=== PATIENT | female | born 1960 | race Caucasian/White ===

== ENCOUNTER → 2016-03-29 | Outpatient (CLI) | payer OTHER ==
[~2016-03-29] MED LIST: AMLO2.5T2 PO; APRACLONIDINE 1% 0.1 ML OPH ONE; ARIP400S IM; BENA40TA54 PO; DULO60CA6 PO; FURO20TA PO; GABA100C14 PO; INSU100C SQ; LANT3I SC; OPHTHALMIC IRRIG SOLUTION 120 ML ONE; OXYB5TAB22 PO; PILOCARPINE 2% 15ML OPH ONE; PROPARACAINE 0.5% 15 ML OPH ONE; TRAZ100T15 PO
== END | disposition home or self-care (01) ==
LOC: RAD 09:36
PROVIDERS: ATTEND Ophthalmology
DX: H40.20X0 Unspecified primary angle-closure glaucoma, stage unspecified (principal)
CPT/HCPCS: 66761; Z7610

== ENCOUNTER 2016-08-01 14:25 | Outpatient (CLI) | payer OTHER ==
[~2016-08-01] VITALS: Ht 157.5 cm; Wt 88.6 kg
[~2016-08-01 14:25] MED LIST changes: -APRACLONIDINE 1% 0.1 ML OPH ONE; +FURO-110 PO; -FURO20TA PO; -OPHTHALMIC IRRIG SOLUTION 120 ML ONE; -PILOCARPINE 2% 15ML OPH ONE; -PROPARACAINE 0.5% 15 ML OPH ONE
[2016-08-01 14:28] VITALS: BP 143/79; PULSE 84; RESP 18; Ht 157.5 cm; Wt 88.6 kg
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
== END 2016-08-01 16:53 | disposition home or self-care (01) ==
LOC: HPC 14:25
PROVIDERS: ATTEND Transplant Surgery
DX: K86.2 Cyst of pancreas (principal); E11.42 Type 2 diabetes mellitus with diabetic polyneuropathy; I10 Essential (primary) hypertension; M79.7 Fibromyalgia; F31.9 Bipolar disorder, unspecified; M19.90 Unspecified osteoarthritis, unspecified site; F43.10 Post-traumatic stress disorder, unspecified; Z79.4 Long term (current) use of insulin; Z90.49 Acquired absence of other specified parts of digestive tract
CPT/HCPCS: G0463

== ENCOUNTER 2016-10-23 07:30 | Inpatient (IN) | payer OTHER ==
[~2016-10-23] VITALS: Ht 157.5 cm; Wt 88.5 kg
[2016-10-29 15:50] VITALS: BMI 16.8
[2016-10-30] VITALS (23 sets, daily range): BP systolic 99–174; BP diastolic 55–89; PULSE 56–99; RESP 11–20; Ht 157.5 cm; Wt 88.5 kg
[2016-10-30] MEDS ORDERED: D5W-0.45 NACL + KCL 20 MEQ 1,000 ML IV SCH (06:30)
[2016-10-30] MEDS ORDERED: PIPER-TAZO 3.375 GM IV (PMX) 100 ML IVPB SCH (06:30)
[2016-10-30] MEDS ORDERED: NAPR-260 PO (06:53)
[2016-10-30] MEDS ORDERED: MELO7.5O PO (06:53)
[2016-10-30] MEDS ORDERED: HYDR-905 PO (06:53)
[2016-10-30] MEDS ORDERED: INSULIN ASPART [NOVOLOG] 3 ML PEN SC STA (07:01)
[2016-10-30] MEDS ORDERED: BUPIVACAINE 0.25%/EPI (SDV) 10 ML INJ ONE ×3 (07:01→07:19)
[2016-10-30] MEDS ORDERED: SUCCINYLCHOLINE CHLORIDE 100 MG/5 ML SYG IV ONE (07:26)
[2016-10-30] MEDS ORDERED: ROCURONIUM 50 MG INJ ONE (07:26)
[2016-10-30] MEDS ORDERED: MIDAZOLAM 1 MG/ML 2 ML INJ ONE (07:26)
[2016-10-30] MEDS ORDERED: PROPOFOL 20 ML ONE (07:26)
[2016-10-30] MEDS ORDERED: FENTAnyl 50 MCG/ML VIAL ONE (07:26)
--- NOTE | 2016-10-30 07:26 | HPN ---
Date/Time of Note Date/Time of Note DATE: 10/30/16 TIME: 07:26 Interval H&P Admission Note Pt. seen H&P reviewed: No system changes Pt. seen H&P reviewed. No system changes (I attest that I have seen and examined the patient and reviewed the operation in detail, as well as its risks , benefits and alternatives of the operation). I attest that I have seen and examined the patient and reviewed in detail the operation, and its associated risks, benefits and alternative. I have answered all the patient's questions to the best of my ability and the patient wishes to proceed. Please refer to rest of electronic medical record for additional updates. ROSEMARY VELEZ M.D. Oct 30, 2016 07:26
[2016-10-30] MEDS ORDERED: PHENYLephrine (100 MCG/ML) 5ML SYG ONE (08:04)
[2016-10-30] MEDS ORDERED: PIPER-TAZO 3.375 GM IV (PMX) 100 ML IVPB ONE (09:00)
[2016-10-30] MEDS ORDERED: ROPIVACAINE 0.5 % 30 ML VIAL ONE (09:18)
[2016-10-30 09:24] LABS: AADO2 Arterial 293.6 mmHg (7.0-24.0); Arterial Base Excess -0.9 mmol/L (-3.0-3); Arterial COHb 0.3 % (0.0-3.0); Arterial HCO3 23.4 mmol/L (22.0-26.0); Arterial MetHb 0.1 % (0.0-1.5); Arterial Total Hemglobin 13.1 g/dl (12.0-18.0); MODE SURGERY
[2016-10-30] MEDS ORDERED: METOCLOPRAMIDE 10 MG INJ ONE ×2 (10:14→11:33)
[2016-10-30] MEDS ORDERED: FAMOTIDINE 20 MG INJ ONE (10:14)
[2016-10-30] MEDS ORDERED: morphine SULFATE/PF (10 MG/10 ML) INJ ONE (11:25)
[2016-10-30] MEDS ORDERED: SUGAMMADEX SODIUM 200 MG/2 ML VIAL IV ONE (11:33)
[2016-10-30] MEDS ORDERED: ONDANSETRON 4 MG INJ ONE (11:33)
[2016-10-30] MEDS ORDERED: FENTAnyl 2MCG/ML-ROPIV 0.2% 100 ML ONE (11:47)
[2016-10-30] MEDS ORDERED: DOCUSATE SODIUM 100 MG CAP PO PRN ×2 (12:00→14:00)
[2016-10-30] MEDS ORDERED: EPHEDrine SULFATE 50 MG/5 ML SYG IV PRN (12:00)
[2016-10-30] MEDS ORDERED: HYDROCODONE/APAP (5/325) TAB PO PRN ×2 (12:00)
[2016-10-30] MEDS ORDERED: ALBUMIN HUMAN 5% 250 ML IV PRN (12:00)
[2016-10-30] MEDS ORDERED: NALBUPHINE HCL (10 MG/1 ML) INJ IV PRN (12:00)
[2016-10-30] MEDS ORDERED: FENTAnyl 50 MCG/ML VIAL IV PRN ×3 (12:00)
[2016-10-30] MEDS ORDERED: BISACODYL 10 MG SUPP PR PRN ×2 (12:00→14:00)
[2016-10-30] MEDS ORDERED: HYDROmorphONE 1 MG/ML SYG IV PRN ×3 (12:00→18:00)
[2016-10-30] MEDS ORDERED: hydrALAzine 20 MG INJ IV PRN (12:00)
[2016-10-30] MEDS ORDERED: ONDANSETRON 4 MG INJ IV PRN (12:00)
[2016-10-30] MEDS ORDERED: HYDROmorphONE (0.2 MG/ML) 10ML SYG IV PRN ×3 (12:00)
[2016-10-30] MEDS ORDERED: NA PHOSPHATE/BIPHOS 133 ML ENEMA PR PRN (12:00)
[2016-10-30] MEDS ORDERED: NALOXONE (0.4 MG/ML) INJ IV PRN (12:00)
[2016-10-30] MEDS ORDERED: LABETALOL HCL 20MG INJ IV PRN (12:00)
[2016-10-30] MEDS ORDERED: DIPHENHYDRAMINE 50 MG INJ IV PRN ×2 (12:00)
[2016-10-30] MEDS ORDERED: MEPERIDINE 25 MG INJ IV PRN (12:00)
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
[2016-10-30 12:37] LABS: BASOPHIL # 0.1 10^3/ul (0.0-0.1); BASOPHILS % 0.3 % (0.0-2.0); EOSINOPHILS # 0.1 10^3/ul (0.0-0.5); EOSINOPHILS % 0.3 % (0.0-7.0); HEMATOCRIT 33.8 % (37.0-47.0); HEMOGLOBIN 11.5 g/dl (12.0-16.0); LYMPHOCYTES # 1.1 10^3/ul (0.8-2.9); LYMPHOCYTES % 6.2 % (15.0-51.0); MEAN CORPUSCULAR HEMOGLOBIN 29.7 pg (29.0-33.0); MEAN CORPUSCULAR VOLUME 87.3 fl (82.0-101.0); MEAN PLATELET VOLUME 9.3 fl (7.4-10.4); MONOCYTE # 0.7 10^3/ul (0.3-0.9); MONOCYTES % 3.8 % (0.0-11.0); NEUTROPHILS % 88.7 % (39.0-77.0); PLATELET COUNT 248 10^3/UL (140-415); RED BLOOD COUNT 3.87 10^6/ul (4.20-5.40); RED CELL DISTRIBUTION WIDTH 12.9 % (11.5-14.5); WHITE BLOOD COUNT 18.3 10^3/ul (4.8-10.8)
[2016-10-30 12:49] LABS: INR 1.01; PROTIME 13.3 Sec (12.2-14.2)
[2016-10-30 12:50] LABS: PARTIAL THROMBOPLASTIN TIME 30.3 Sec (25.0-35.0)
[2016-10-30 13:01] LABS: ALBUMIN 2.9 g/dl (3.3-4.9); ALBUMIN/GLOBULIN RATIO 1.03; BILIRUBIN,INDIRECT 0.3 mg/dl (0-1.1); BILIRUBIN,TOTAL 0.3 mg/dl (0.2-1.3); TOTAL PROTEIN 5.7 g/dl (6.1-8.1)
[2016-10-30 13:08] LABS: CALCIUM 8.1 mg/dl (8.4-10.2); CREATININE 0.79 mg/dl (0.44-1.00); POTASSIUM 3.6 mmol/L (3.5-5.1)
[2016-10-30 13:10] LABS: MAGNESIUM 1.6 mg/dl (1.7-2.5); PHOSPHORUS 3.4 mg/dl (2.5-4.9)
--- NOTE | 2016-10-30 13:30 | RADRPT ---
PROCEDURE: XR Chest. CLINICAL INDICATION: CENTRAL LINE PLACEMENT TECHNIQUE: PA and Lateral views of the chest were obtained. COMPARISON: None. FINDINGS: This is an apical lordotic projectio, limiting evaluation. There is a right internal jugular central venous catheter with tip projecting over the upper superio r vena cava. A partially imaged line or catheter projects over the left upper quadrant. The cardiac silhouette is borderline enlarged. There are atherosclerotic calcifications of the aorta. No pneumothorax, pleural effusion, or consolidation is identified. There is mild atelectasis at the left lung base. There is no evidence of pulmonary vascular congestion. There are degenerative changes of the spine. IMPRESSION: 1. Right internal jugular central venous catheter with tip projecting over the upper superior vena c jose. 2. Left basilar atelectasis. 3. Borderline cardiomegaly. 4. Thoracic aortic atherosclerotic disease. RPTAT: EE Physician Shailesh Date Time Electronically viewed and signed by Physician Shailesh on 10/30/2016 13:30 JHOAN/
[2016-10-30] MEDS: FENTAnyl 2MCG/ML-ROPIV 0.2% 100 ML BAG EPI SCH (13:45)
[2016-10-30] MEDS ORDERED: morphine 2 MG INJ IV PRN (14:00)
[2016-10-30] MEDS ORDERED: NACL 0.9% 3 ML SYG IV SCH (14:00)
[2016-10-30] MEDS ORDERED: ACETAMINOPHEN 650 MG SUPP PR PRN (14:00)
[2016-10-30] MEDS ORDERED: MAGNESIUM HYDROXIDE 30ML CUP PO PRN (14:00)
[2016-10-30] MEDS ORDERED: GLUCOSE GEL 15 GRAM TUBE BUCCAL PRN (14:30)
[2016-10-30] MEDS ORDERED: DEXTROSE 50% 50 ML SYRINGE IV PRN ×2 (14:30)
[2016-10-30] MEDS ORDERED: GLUCOSE GEL 15 GRAM TUBE PO PRN ×2 (14:30)
[2016-10-30] MEDS ORDERED: GLUCAGON 1 MG INJ IM PRN (14:30)
[2016-10-30] MEDS: ONDANSETRON 4 MG INJ IV PRN ×2 (16:45→22:03)
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
[2016-10-30] MEDS: INSULIN ASPART [NOVOLOG] 3 ML PEN SC SCH ×3 (17:55→21:00)
[2016-10-30] MEDS: D5W-0.45 NACL + KCL 20 MEQ 1,000 ML IV SCH ×2 (18:53→21:56)
[2016-10-30] MEDS: PIPER-TAZO 3.375 GM IV (PMX) 100 ML IVPB SCH (18:53)
[2016-10-30] MEDS: GABAPENTIN 300 MG CAP PO SCH (21:20)
[2016-10-30] MEDS: traZODone 100 MG TAB PO SCH (21:20)
[2016-10-31] VITALS (7 sets, daily range): BP systolic 100–128; BP diastolic 53–71; PULSE 76–80; RESP 16–20
[2016-10-31] MEDS: PIPER-TAZO 3.375 GM IV (PMX) 100 ML IVPB SCH ×4 (00:19→17:48)
[2016-10-31] MEDS: ACCU-CHEK XX SCH (01:08)
[2016-10-31] MEDS ORDERED: ACCU-CHEK XX SCH (02:00)
[2016-10-31] MEDS ORDERED: PANTOPRAZOLE 40 MG INJ IV SCH (06:00)
[2016-10-31] MEDS: D5W-0.45 NACL + KCL 20 MEQ 1,000 ML IV SCH (06:02)
[2016-10-31 06:30] LABS: ABNORMAL IP MESSAGE 1; BASOPHIL # 0.1 10^3/ul (0.0-0.1); BASOPHILS % 0.4 % (0.0-2.0); EOSINOPHILS # 0.1 10^3/ul (0.0-0.5); EOSINOPHILS % 0.7 % (0.0-7.0); HEMATOCRIT 35.3 % (37.0-47.0); HEMOGLOBIN 12.1 g/dl (12.0-16.0); LYMPHOCYTES # 0.5 10^3/ul (0.8-2.9); LYMPHOCYTES % 3.1 % (15.0-51.0); MEAN CORPUSCULAR HEMOGLOBIN 30.4 pg (29.0-33.0); MEAN CORPUSCULAR HGB CONC 34.3 g/dl (32.0-37.0); MEAN CORPUSCULAR VOLUME 88.7 fl (82.0-101.0); MEAN PLATELET VOLUME 9.8 fl (7.4-10.4); MONOCYTE # 0.9 10^3/ul (0.3-0.9); MONOCYTES % 5.2 % (0.0-11.0); PLATELET COUNT 264 10^3/UL (140-415); RED BLOOD COUNT 3.98 10^6/ul (4.20-5.40); RED CELL DISTRIBUTION WIDTH 12.6 % (11.5-14.5); WHITE BLOOD COUNT 17.4 10^3/ul (4.8-10.8)
[2016-10-31 06:50] LABS: CHOL/HDL RATIO 4.4 RATIO
[2016-10-31 06:51] LABS: ALBUMIN 2.9 g/dl (3.3-4.9); ALBUMIN/GLOBULIN RATIO 1.03; BILIRUBIN,INDIRECT 0.5 mg/dl (0-1.1); BILIRUBIN,TOTAL 0.5 mg/dl (0.2-1.3); CALCIUM 8.2 mg/dl (8.4-10.2); CREATININE 0.73 mg/dl (0.44-1.00); MAGNESIUM 1.6 mg/dl (1.7-2.5); PHOSPHORUS 3.3 mg/dl (2.5-4.9); POTASSIUM 4.5 mmol/L (3.5-5.1); TOTAL PROTEIN 5.7 g/dl (6.1-8.1)
[2016-10-31 06:54] LABS: INR 1.04; PROTIME 13.6 Sec (12.2-14.2); PT RATIO 1.1
[2016-10-31 06:55] LABS: PARTIAL THROMBOPLASTIN TIME 39.6 Sec (25.0-35.0)
[2016-10-31] MEDS ORDERED: SOD CHLORIDE 0.9% 500 ML IV ONE (07:00)
[2016-10-31 07:06] LABS: POSITIVE DIFF @See below
[2016-10-31 07:07] LABS: T3 UPTAKE 40.6 % (23.5-40.5)
[2016-10-31 07:21] LABS: THYROID STIMULATING HORMONE 1.53 MIU/L (0.465-4.680)
[2016-10-31] MEDS ORDERED: INSULIN GLARGINE [LANtus] 3 ML PEN SC SCH (08:00)
[2016-10-31] MEDS ORDERED: FAMOTIDINE 20 MG INJ IV SCH (09:00)
[2016-10-31] MEDS ORDERED: ENOXAPARIN 40 MG/0.4 ML SYG SC SCH (09:00)
[2016-10-31] MEDS: INSULIN ASPART [NOVOLOG] 3 ML PEN SC SCH ×6 (09:05→21:00)
[2016-10-31] MEDS: DULOXETINE 30 MG CAP DR PO SCH (09:06)
[2016-10-31] MEDS: OXYBUTYNIN (XL) 5 MG TAB PO SCH (09:06)
[2016-10-31] MEDS: GABAPENTIN 300 MG CAP PO SCH ×3 (09:07→21:04)
[2016-10-31] MEDS: traZODone 100 MG TAB PO SCH ×2 (09:07→21:04)
[2016-10-31] MEDS: AMLODIPINE 2.5 MG TAB PO SCH (09:07)
[2016-10-31] MEDS: BENAZEPRIL 40 MG TAB PO SCH (09:07)
[2016-10-31] MEDS: FENTAnyl 2MCG/ML-ROPIV 0.2% 100 ML BAG EPI SCH (09:39)
[2016-10-31] MEDS ORDERED: HEPARIN 5,000 UNIT/0.5 ML VIAL SC SCH (10:30)
[2016-10-31] MEDS ORDERED: MAGNESIUM SULFATE 2 GM/50 ML 50 ML IVPB ONE (13:00)
[2016-10-31] MEDS: ONDANSETRON 4 MG INJ IV PRN (13:02)
[2016-10-31] MEDS: HYDROmorphONE 1 MG/ML SYG IV PRN (13:02)
[2016-10-31] MEDS: ACETAMINOPHEN 325 MG TAB PO PRN ×2 (13:10→21:04)
--- NOTE | 2016-10-31 13:44 | PN ---
Date/Time of Note Date/Time of Note DATE: 10/31/16 TIME: 13:34 Assessment/Plan VTE Prophylaxis VTE Prophylaxis Intervention: SCD's Lines/Catheters IV Catheter Type (from Nrsg): Central Line Central line still needed: Yes Urinary Cath still in place: Yes Reason Cath still needed: other (indicate) (monitor I&O) Assessment/Plan Chief Complaint/Hosp Course Assessment and plan 1. 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 Continue postop care. Diet per surgeon. Continue analgesics. Awaiting pathology. 2. History of diabetes. A1c of 11.2. Insulin regimen to be adjusted. 3. Essential hypertension. Continue antihypertensives and adjust needed 4. Peripheral neuropathy. Continue on Neurontin and analgesics 5. History of bipolar/PTSD. Continue on mood stabilizing agents 6. History of fibromyalgia. Continue on analgesics. patient to placed on tie tamper Disposition and plan: Noted with uncontrolled blood glucose. Will adjust insulin regimen. PRACTICE PERFORMANCE MANAGER to be placed for pain management. Continue in-house monitoring. Continue postop care Discussed plan of care with Dr. Souza Problems: Subjective 24 Hr Interval Summary Free Text/Dictation Reports having some pain in abdomen area. Still has some nausea. Exam/Review of Systems Vital Signs Vitals Vital Signs Date Time Temp Pulse Resp B/P Pulse Ox O2 Delivery O2 Flow Rate FiO2 10/31/16 07:24 100.5 84 18 114/56 97 10/31/16 00:20 Nasal Cannula 2.0 Intake and Output 10/30/16 10/30/16 10/31/16 15:00 23:00 07:00 Intake Total 2400 ml 1700 ml Output Total 235 ml 70 ml 1120 ml Balance 2165 ml -70 ml 580 ml Exam Constitutional: alert, oriented, other (little lethargic ) Psych: nl mood/affect Respiratory: clear to auscultation, normal air movement Cardiovascular: edema, regular rate and rhythm Gastrointestinal: soft, tender Musculoskeletal: nl extremities to inspection Neurological: SUPERANNUATION FUNDS MANAGER II-XII intact, nl mental status, nl speech Skin: other (Abdominal surgical site clean dry and intact with drain noted on the flank) Results Result Diagram: 10/31/16 0527 10/31/16 0526 Results 24 hrs Laboratory Tests Test 10/30/16 18:52 10/30/16 21:14 10/31/16 05:26 10/31/16 05:27 Bedside Glucose 108 139 Prothrombin Time 13.6 Prothrombin Time Ratio 1.1 INR International Normalized Ratio 1.04 Activated Partial Thromboplast Time 39.6 H Sodium Level 132 L Potassium Level 4.5 Chloride Level 102 Carbon Dioxide Level 25 Anion Gap 10 Blood Urea Nitrogen 11 Creatinine 0.73 Glucose Level 243 #H Lactic Acid Level 2.3 *H Calcium Level 8.2 L Phosphorus Level 3.3 Magnesium Level 1.6 L Total Bilirubin 0.5 Direct Bilirubin 0.00 Indirect Bilirubin 0.5 Aspartate Amino Transf (AST/SGOT) 61 H Alanine Aminotransferase (ALT/SGPT) 66 Alkaline Phosphatase 97 B-Type Natriuretic Peptide 361 H Total Protein 5.7 L Albumin 2.9 L Globulin 2.80 Albumin/Globulin Ratio 1.03 White Blood Count 17.4 H Red Blood Count 3.98 L Hemoglobin 12.1 Hematocrit 35.3 L Mean Corpuscular Volume 88.7 Mean Corpuscular Hemoglobin 30.4 Mean Corpuscular Hemoglobin Concent 34.3 Red Cell Distribution Width 12.6 Platelet Count 264 Mean Platelet Volume 9.8 Neutrophils % 90.0 H Lymphocytes % 3.1 L Monocytes % 5.2 Eosinophils % 0.7 Basophils % 0.4 Nucleated Red Blood Cells % 0.0 Neutrophils # (Manual) 15.7 H Lymphocytes # 0.5 L Monocytes # 0.9 Eosinophils # 0.1 Basophils # 0.1 Nucleated Red Blood Cells # 0.0 Hemoglobin A1c 11.2 H Triglycerides Level 104 Cholesterol Level 134 LDL Cholesterol, Calculated 83 HDL Cholesterol 30 L Cholesterol/HDL Ratio 4.4 Thyroid Stimulating Hormone (TSH) 1.530 Free Thyroxine Index 2.44 Thyroxine (T4) 6.0 Triiodothyronine (T3) Uptake 40.6 H Test 10/31/16 08:39 10/31/16 13:05 Bedside Glucose 236 H 264 H Medications Medications Current Medications Diphenhydramine HCl (Benadryl) 25 mg Q4H PRN IV PRURITUS; Start 10/30/16 at 12: 00 Nalbuphine HCl (Nubain) 10 mg Q4H PRN IV PRURITUS; Start 10/30/16 at 12:00 Naloxone HCl 0.2 mg 0.2 mg Q2M PRN IV FOR RESP RATE 8 OR LESS; Start 10/30/16 at 12:00 Potassium Chloride/Dextrose/ Sod Cl (D5-1/2ns + KCl 20 Meq) 1,000 ml @ 100 mls/ hr Q10H IV Last administered on 10/31/16 06:02; Admin Dose 100 MLS/HR; Start 10/30/16 at 11:56 Docusate Sodium (Colace) 100 mg BID PRN PO CONSTIPATION; Start 10/30/16 at 12: 00 Bisacodyl (Dulcolax Supp) 10 mg BID PRN MD CONSTIPATION; Start 10/30/16 at 12: 00 Sodium Biphosphate/ Sodium Phosphate (Fleet Enema) 133 ml BID PRN MD CONSTIPATION; Start 10/30/16 at 12:00 Amlodipine Besylate (Norvasc) 2.5 mg DAILY PO Last administered on 10/31/16 09 :07; Admin Dose 2.5 MG; Start 10/31/16 at 09:00 Benazepril HCl (Lotensin) 40 mg DAILY PO Last administered on 10/31/16 09:07; Admin Dose 40 MG; Start 10/31/16 at 09:00 Duloxetine HCl (Cymbalta) 60 mg DAILY PO Last administered on 10/31/16 09:06; Admin Dose 60 MG; Start 10/31/16 at 09:00 Gabapentin (Neurontin) 300 mg TID PO Last administered on 10/31/16 13:02; Admin Dose 300 MG; Start 10/30/16 at 21:00 Oxybutynin Chloride (Ditropan Xl) 5 mg DAILY PO Last administered on 10/31/16 09:06; Admin Dose 5 MG; Start 10/31/16 at 09:00 Trazodone HCl (Desyrel) 100 mg BID PO Last administered on 10/31/16 09:07; Admin Dose 100 MG; Start 10/30/16 at 21:00 Ondansetron HCl (Zofran Inj) 4 mg Q6H PRN IV NAUSEA AND/OR VOMITING Last administered on 10/31/16 13:02; Admin Dose 4 MG; Start 10/30/16 at 14:00 Acetaminophen (Tylenol Tab) 650 mg Q6H PRN PO PAIN LEVEL 1-3 OR FEVER Last administered on 10/31/16 13:10; Admin Dose 650 MG; Start 10/30/16 at 14:00 Acetaminophen (Tylenol Supp) 650 mg Q6H PRN MD PAIN LEVEL 1-3 OR FEVER; Start 10/30/16 at 14:00 Acetaminophen/ Hydrocodone Bitart ([place] (5/325)) 1 tab Q6H PRN PO MODERATE PAIN LEVEL 4-6; Start 10/30/16 at 14:00 Morphine Sulfate (morphine) 2 mg Q4H PRN IV SEVERE PAIN LEVEL 7-10; Start 10/30 at 14:00; Status Future Hold Docusate Sodium (Colace) 100 mg Q12H PRN PO CONSTIPATION; Start 10/30/16 at 14: 00 Magnesium Hydroxide (Milk Of Mag) 30 ml DAILY PRN PO CONSTIPATION; Start at 14:00 Bisacodyl (Dulcolax Supp) 10 mg DAILY PRN MD CONSTIPATION; Start 10/30/16 at 14 :00 Diagnostic Test (Pha) 1 ea 1 ea 02 XX ; Start 10/31/16 at 02:00 Piperacillin Sod/ Tazobactam Sod (Zosyn 3.375gm/ 100 ml (Pmx)) 100 ml @ 200 mls /hr Q6 IVPB Last administered on 10/31/16t 11:13; Admin Dose 200 MLS/HR; Start 10/30/16 at 18:00 Miscellaneous Information 1 ea NOTE XX ; Start 10/30/16 at 14:30 Glucose (Glutose) 15 gm Q15M PRN PO DECREASED GLUCOSE; Start 10/30/16 at 14:30 Glucose (Glutose) 22.5 gm Q15M PRN PO DECREASED GLUCOSE; Start 10/30/16 at 14: 30 Dextrose (D50w Syringe) 25 ml Q15M PRN IV DECREASED GLUCOSE; Start 10/30/16 at 14:30 Dextrose (D50w Syringe) 50 ml Q15M PRN IV DECREASED GLUCOSE; Start 10/30/16 at 14:30 Glucagon (Glucagen) 1 mg Q15M PRN IM DECREASED GLUCOSE; Start 10/30/16 at 14:30 Glucose (Glutose) 15 gm Q15M PRN BUCCAL DECREASED GLUCOSE; Start 10/30/16 at 14 :30 Hydromorphone HCl (Dilaudid) 0.5 mg Q2 PRN IV PAIN; Start 10/30/16 at 18:00 Hydromorphone HCl (Dilaudid) 1 mg Q2 PRN IV PAIN Last administered on 13:02; Admin Dose 1 MG; Start 10/30/16 at 18:00 Famotidine (Pepcid Iv) 20 mg BID IV ; Start 11/01/16 at 09:00 Heparin Sodium (Porcine) (Heparin (5000 Units/0.5 ml)) 5,000 unit BID SC Last administered on 10/31/16 11:13; Admin Dose 5,000 UNIT; Start 10/31/16 at 10:30 Insulin Glargine 20 unit 20 unit DAILY@08 SC ; Start 11/01/16 at 08:00 Magnesium Sulfate (Magnesium Sulfate 2 Gm/50 ml) 50 ml @ 25 mls/hr ONCE ONCE IVPB ; Start 10/31/16 at 13:00; Stop 10/31/16 at 14:59 KERMIT CARDOZA Oct 31, 2016 13:44
[2016-10-31] MEDS: NS + KCL 20 MEQ 1,000 ML IV SCH (16:59)
--- NOTE | 2016-10-31 19:16 | OPPN ---
Date/Time of Note Date/Time of Note DATE: 10/31/16 TIME: 19:13 Post-Anesthesia Notes Post-Anesthesia Note Last documented vital signs Vital Signs Date Time Temp Pulse Resp B/P Pulse Ox O2 Delivery O2 Flow Rate FiO2 10/31/16 18:05 2.0 10/31/16 15:58 100.4 76 16 117/60 95 10/31/16 14:31 Nasal Cannula Activity: WNL Respiratory function: WNL Cardiovascular function: WNL Mental status: Baseline Pain reasonably controlled: Yes Hydration appropriate: Yes Nausea/Vomiting absent: Yes Comments POD#1 she is doing fine, pain is well controlled, her vitals are stable, she spiked a fever today, Dr king requested to DC Epidural and IV pain med instead of Epidural, Patient already received Heparin IV, Heparin was held for 6 hr until Epidural catheter will be taken out. she will be followed up by her primary team for pain management. KRISHNA LAND MD Oct 31, 2016 19:15
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
[2016-10-31] MEDS ORDERED: HYDROmorphONE 0.2 MG/ML PCA IV SCH (20:30)
[2016-10-31] MEDS: HEPARIN 5,000 UNIT/0.5 ML VIAL SC SCH (23:49)
[2016-11-01] MEDS: ACCU-CHEK XX SCH (01:47)
[2016-11-01] MEDS: ACETAMINOPHEN 325 MG TAB PO PRN (02:46)
[2016-11-01] MEDS: NS + KCL 20 MEQ 1,000 ML IV SCH ×3 (02:52→16:41)
[2016-11-01] MEDS: ONDANSETRON 4 MG INJ IV PRN (02:53)
[2016-11-01 02:58] VITALS: BP 127/60; RESP 20
[2016-11-01 05:23] LABS: ABNORMAL IP MESSAGE 1; BASOPHIL # 0.1 10^3/ul (0.0-0.1); BASOPHILS % 0.3 % (0.0-2.0); EOSINOPHILS # 0.1 10^3/ul (0.0-0.5); EOSINOPHILS % 0.5 % (0.0-7.0); HEMATOCRIT 35.6 % (37.0-47.0); HEMOGLOBIN 11.9 g/dl (12.0-16.0); LYMPHOCYTES # 0.7 10^3/ul (0.8-2.9); LYMPHOCYTES % 2.9 % (15.0-51.0); MEAN CORPUSCULAR HEMOGLOBIN 29.7 pg (29.0-33.0); MEAN CORPUSCULAR HGB CONC 33.4 g/dl (32.0-37.0); MEAN CORPUSCULAR VOLUME 88.8 fl (82.0-101.0); MONOCYTE # 1.6 10^3/ul (0.3-0.9); NEUTROPHILS % 88.4 % (39.0-77.0); PLATELET COUNT 290 10^3/UL (140-415); RED BLOOD COUNT 4.01 10^6/ul (4.20-5.40); RED CELL DISTRIBUTION WIDTH 12.5 % (11.5-14.5); WHITE BLOOD COUNT 22.7 10^3/ul (4.8-10.8)
[2016-11-01 05:30] LABS: CALCIUM 8.4 mg/dl (8.4-10.2); CREATININE 0.72 mg/dl (0.44-1.00); POTASSIUM 4.5 mmol/L (3.5-5.1)
[2016-11-01 05:49] LABS: POSITIVE DIFF @See below
[2016-11-01] MEDS: SOD CHLORIDE 0.9% 1,000 ML IV SCH ×3 (06:45→10:30)
[2016-11-01 07:58] VITALS: BP 133/66; RESP 18
[2016-11-01 08:21] VITALS: BP 133/76; PULSE 77; RESP 20
[2016-11-01] MEDS ORDERED: FUROSEMIDE 20 MG INJ IV ONE (08:30)
[2016-11-01] MEDS ORDERED: ALBUTEROL/IPRATROPIUM (NEB) 3 ML AMP HHN PRN (09:00)
[2016-11-01] MEDS ORDERED: HEPARIN 5,000 UNIT/0.5 ML VIAL SC SCH (09:00)
[2016-11-01 09:05] LABS: AADO2 Arterial 48.2 mmHg (7.0-24.0); Allen Test ACCEPTAB; Arterial Base Excess -3.8 mmol/L (-3.0-3); Arterial COHb 1.1 % (0.0-3.0); Arterial Fraction of Oxyhgb 87.8 % (93.0-99.0); Arterial HCO3 21.7 mmol/L (22.0-26.0); Arterial MetHb 0.1 % (0.0-1.5); Arterial Total Hemglobin 15.1 g/dl (12.0-18.0); MODE ROOM AIR
[2016-11-01] MEDS: FAMOTIDINE 20 MG INJ IV SCH ×2 (09:51→21:00)
[2016-11-01] MEDS: AMLODIPINE 2.5 MG TAB PO SCH (09:52)
[2016-11-01] MEDS: BENAZEPRIL 40 MG TAB PO SCH (09:53)
[2016-11-01] MEDS: HEPARIN 5,000 UNIT/0.5 ML VIAL SC SCH ×2 (10:04→21:08)
[2016-11-01] MEDS: INSULIN GLARGINE [LANtus] 3 ML PEN SC SCH (10:10)
[2016-11-01] MEDS: traZODone 100 MG TAB PO SCH ×2 (10:12→21:00)
[2016-11-01] MEDS: DULOXETINE 30 MG CAP DR PO SCH (10:12)
[2016-11-01] MEDS: OXYBUTYNIN (XL) 5 MG TAB PO SCH (10:13)
[2016-11-01] MEDS: GABAPENTIN 300 MG CAP PO SCH ×3 (10:13→21:00)
[2016-11-01] MEDS: INSULIN ASPART [NOVOLOG] 3 ML PEN SC SCH ×7 (10:49→21:00)
--- NOTE | 2016-11-01 10:59 | RADRPT ---
PROCEDURE: XR Chest. CLINICAL INDICATION: CHEST PAIN TECHNIQUE: Single frontal chest x-ray. COMPARISON: 10/30/2016 FINDINGS: There is a right-sided jugular central venous catheter in place unchanged. There is atelectasis of the right upper lobe with volume loss. . There is mild left basilar subsegmental atelectasis. [place] of the lungs are clear. No alveolar infiltrates or effusions.. The cardiomediastinal silhoue tte is unremarkable. The osseous structures are intact. Cholecystectomy clips in the right upper qu adrant. A catheter is also seen in the left upper quadrant. IMPRESSION: Right jugular central venous catheter and left upper quadrant abdominal catheter in place. Atelectasis of the right upper lobe with volume loss. Mild left basilar atelectasis.. RPTAT: GG .Frantz Girard MD, MD Date Time Electronically viewed and signed by .Frantz Girard MD, MD on 11/01/2016 09:05 .L/
[2016-11-01 12:36] VITALS: BP 121/72; PULSE 72; RESP 20
[2016-11-01] MEDS: ALBUTEROL/IPRATROPIUM (NEB) 3 ML AMP HHN SCH ×2 (13:43→20:44)
--- NOTE | 2016-11-01 14:21 | PN ---
Date/Time of Note Date/Time of Note DATE: 11/01/16 TIME: 14:14 Assessment/Plan VTE Prophylaxis VTE Prophylaxis Intervention: heparin Lines/Catheters IV Catheter Type (from Nrsg): Central Line Central line still needed: Yes Urinary Cath still in place: Yes Reason Cath still needed: other (indicate) (monitor I&O) Assessment/Plan Chief Complaint/Hosp Course Assessment and plan 1. 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 Continue postop care. Diet per surgeon. . Awaiting pathology. Continue with analgesics. On SULFUR BURNER 2. History of diabetes. A1c of 11.2. Slightly improving. Will adjust as needed 3. Essential hypertension. Continue antihypertensives and adjust needed 4. Peripheral neuropathy. Continue on Neurontin and analgesics 5. History of bipolar/PTSD. Continue on mood stabilizing agents 6. History of fibromyalgia. Continue on analgesics. Continue SULFUR BURNER 7. Reported chest discomfort. Patient does report that her chest discomfort starts from her surgical site and spread. Likely radiation of pain from surgical site. Continue with analgesics. Troponin 1 negative. Chest x-ray showed some atelectasis and right lower lung lobe. Encourage incentive spirometry. Will monitor for now. 8.Hypoxemia. Patient noted with ABG with low PO2. Encourage incentive spirometry. Titrate down O2 as tolerated Disposition and plan: Continue postop care. Continue O2. Encourage incentive spirometry. Continue in-house monitoring. Follow-up with surgeon recommendations Discussed plan of care with Dr. Souza Problems: Subjective 24 Hr Interval Summary Free Text/Dictation Reports having some chest discomfort that starts from her surgical incision and radiates to right side of her chest Exam/Review of Systems Vital Signs Vitals Vital Signs Date Time Temp Pulse Resp B/P Pulse Ox O2 Delivery O2 Flow Rate FiO2 11/01/16 13:44 76 16 97 Nasal Cannula 3.0 11/01/16 12:36 97.2 121/72 Intake and Output 10/31/16 10/31/16 11/01/16 14:59 22:59 06:59 Intake Total 100 ml 1750 ml 240 ml Output Total 620 ml 410 ml Balance 100 ml 1130 ml -170 ml Exam Constitutional: alert, oriented, other (little lethargic ) Psych: nl mood/affect Respiratory: clear to auscultation, normal air movement Cardiovascular: edema, regular rate and rhythm Gastrointestinal: soft, tender Musculoskeletal: nl extremities to inspection Neurological: HAND LEATHER TRIMMER II-XII intact, nl mental status, nl speech Skin: other (Abdominal surgical site clean dry and intact with drain noted on the flank) Results Result Diagram: 11/01/16 0446 11/01/16 0449 Results 24 hrs Laboratory Tests Test 10/31/16 17:01 10/31/16 21:06 11/01/16 04:46 11/01/16 04:49 Bedside Glucose 209 151 White Blood Count 22.7 #H Red Blood Count 4.01 L Hemoglobin 11.9 L Hematocrit 35.6 L Mean Corpuscular Volume 88.8 Mean Corpuscular Hemoglobin 29.7 Mean Corpuscular Hemoglobin Concent 33.4 Red Cell Distribution Width 12.5 Platelet Count 290 Mean Platelet Volume 10.0 Neutrophils % 88.4 H Lymphocytes % 2.9 L Monocytes % 7.0 Eosinophils % 0.5 Basophils % 0.3 Nucleated Red Blood Cells % 0.0 Neutrophils # (Manual) 20.1 H Lymphocytes # 0.7 L Monocytes # 1.6 H Eosinophils # 0.1 Basophils # 0.1 Nucleated Red Blood Cells # 0.0 Sodium Level 128 L Potassium Level 4.5 Chloride Level 100 Carbon Dioxide Level 22 Anion Gap 11 Blood Urea Nitrogen 13 Creatinine 0.72 Glucose Level 173 Calcium Level 8.4 Test 11/01/16 08:17 11/01/16 08:49 11/01/16 09:16 11/01/16 10:47 Blood Gas Specimen Source Blood arterial Arterial Blood Date Drawn 11/01/2016 8:50:21 AM Arterial Blood pH (Temp corrected) 7.341 L Arterial Blood pCO2 (Temp correct) 41.0 Arterial Blood pO2 (Temp corrected) 52.4 *L Arterial Blood HCO3 21.7 L Arterial Blood Base Excess -3.8 L Arterial Blood Oxygen Saturation 88.9 L Maurice Test ACCEPTAB Arterial Blood Gas Puncture Site Right Radial Arterial Blood Carboxyhemoglobin 1.1 Arterial Blood Methemoglobin 0.1 Blood Gas A-a O2 Differential 48.2 H Oxyhemoglobin Percent 87.8 L Total Hemoglobin 15.1 Blood Gas Temperature 37.0 Blood Gas Modality ROOM AIR FiO2 21.0 Blood Gas Critical Value Read Back Lakeisha HERNANDEZ RN Blood Gas Notified Whom BRYAND Blood Gas Notified Time 11/01/2016 9:05:11 AM Bedside Glucose 175 199 Troponin I < 0.012 Test 11/01/16 12:33 Bedside Glucose 164 Medications Medications Current Medications Diphenhydramine HCl (Benadryl) 25 mg Q4H PRN IV PRURITUS; Start 10/30/16 at 12: 00 Nalbuphine HCl (Nubain) 10 mg Q4H PRN IV PRURITUS; Start 10/30/16 at 12:00 Naloxone HCl (Narcan) 0.2 mg Q2M PRN IV FOR RESP RATE 8 OR LESS; Start at 12:00 Docusate Sodium (Colace) 100 mg BID PRN PO CONSTIPATION; Start 10/30/16 at 12: 00 Bisacodyl (Dulcolax Supp) 10 mg BID PRN TN CONSTIPATION; Start 10/30/16 at 12: 00 Sodium Biphosphate/ Sodium Phosphate (Fleet Enema) 133 ml BID PRN TN CONSTIPATION; Start 10/30/16 at 12:00 Amlodipine Besylate (Norvasc) 2.5 mg DAILY PO Last administered on 11/01/16 09 :52; Admin Dose 2.5 MG; Start 10/31/16 at 09:00 Benazepril HCl (Lotensin) 40 mg DAILY PO Last administered on 11/01/16 09:53; Admin Dose 40 MG; Start 10/31/16 at 09:00 Duloxetine HCl (Cymbalta) 60 mg DAILY PO Last administered on 10/31/16 09:06; Admin Dose 60 MG; Start 10/31/16 at 09:00 Gabapentin (Neurontin) 300 mg TID PO Last administered on 10/31/16 21:04; Admin Dose 300 MG; Start 10/30/16 at 21:00 Oxybutynin Chloride (Ditropan Xl) 5 mg DAILY PO Last administered on 10/31/16 09:06; Admin Dose 5 MG; Start 10/31/16 at 09:00 Trazodone HCl (Desyrel) 100 mg BID PO Last administered on 10/31/16 21:04; Admin Dose 100 MG; Start 10/30/16 at 21:00 Ondansetron HCl (Zofran Inj) 4 mg Q6H PRN IV NAUSEA AND/OR VOMITING Last administered on 11/01/16 02:53; Admin Dose 4 MG; Start 10/30/16 at 14:00 Acetaminophen (Tylenol Tab) 650 mg Q6H PRN PO PAIN LEVEL 1-3 OR FEVER Last administered on 11/01/16 02:46; Admin Dose 650 MG; Start 10/30/16 at 14:00 Acetaminophen (Tylenol Supp) 650 mg Q6H PRN TN PAIN LEVEL 1-3 OR FEVER; Start 10/30/16 at 14:00 Acetaminophen/ Hydrocodone Bitart ([place] (5/325)) 1 tab Q6H PRN PO MODERATE PAIN LEVEL 4-6; Start 10/30/16 at 14:00 Docusate Sodium (Colace) 100 mg Q12H PRN PO CONSTIPATION; Start 10/30/16 at 14: 00 Magnesium Hydroxide (Milk Of Mag) 30 ml DAILY PRN PO CONSTIPATION; Start at 14:00 Diagnostic Test (Pha) (Accu-Chek) 1 ea 02 XX ; Start 10/31/16 at 02:00 Miscellaneous Information 1 ea NOTE XX ; Start 10/30/16 at 14:30 Glucose (Glutose) 15 gm Q15M PRN PO DECREASED GLUCOSE; Start 10/30/16 at 14:30 Glucose (Glutose) 22.5 gm Q15M PRN PO DECREASED GLUCOSE; Start 10/30/16 at 14: 30 Dextrose (D50w Syringe) 25 ml Q15M PRN IV DECREASED GLUCOSE; Start 10/30/16 at 14:30 Dextrose (D50w Syringe) 50 ml Q15M PRN IV DECREASED GLUCOSE; Start 10/30/16 at 14:30 Glucagon (Glucagen) 1 mg Q15M PRN IM DECREASED GLUCOSE; Start 10/30/16 at 14:30 Glucose (Glutose) 15 gm Q15M PRN BUCCAL DECREASED GLUCOSE; Start 10/30/16 at 14 :30 Hydromorphone HCl (Dilaudid) 0.5 mg Q2 PRN IV PAIN; Start 10/30/16 at 18:00 Hydromorphone HCl (Dilaudid) 1 mg Q2 PRN IV PAIN Last administered on 13:02; Admin Dose 1 MG; Start 10/30/16 at 18:00 Famotidine (Pepcid Iv) 20 mg BID IV Last administered on 11/01/16 09:51; Admin Dose 20 MG; Start 11/01/16 at 09:00 Insulin Glargine 20 unit 20 unit DAILY@08 SC Last administered on 11/01/16 10: 10; Admin Dose 20 UNIT; Start 11/01/16 at 08:00 Potassium Chloride/Sodium Chloride (NS-KCl 20 Meq) 1,000 ml @ 100 mls/hr Q10H IV Last administered on 11/01/16 09:55; Admin Dose 100 MLS/HR; Start 10/31/16 at 17:00 Hydromorphone HCl (Dilaudid SULFUR BURNER) 0 MG/HR CONTINUOUS RATE ... Q4PCA IV Last administered on 11/01/16 03:46; Admin Dose 6 MG; Start 10/31/16 at 20:30 Heparin Sodium (Porcine) (Heparin (5000 Units/0.5 ml)) 5,000 unit BID SC Last administered on 11/01/16 10:04; Admin Dose 5,000 UNIT; Start 10/31/16 at 23:30 KERMIT CARDOZA Nov 01, 2016 14:20
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
--- NOTE | 2016-11-01 15:41 | RADRPT ---
PROCEDURE: US Lower extremity venous, bilateral CLINICAL INDICATION: EVAL FOR DVT TECHNIQUE: Multiple sonographic images of the bilateral lower extremity deep venous system was obt ained utilizing grayscale, color-flow, compressive sonography and doppler imaging with augmentation. The images were reviewed on a PACS workstation. COMPARISON: None. FINDINGS: There is normal compressibility and flow within the right common femoral, superficial femoral , post erior tibial, peroneal and popliteal veins. There is normal compressibility and flow within the left common femoral, superficial femoral , poste rior tibial, peroneal and popliteal veins. IMPRESSION: No evidence of deep venous thrombosis in bilateral lower extremities, as above. RPTAT: EE Physician Tramaine Date Time Electronically viewed and signed by Physician Tramaine on 11/01/2016 15:41 /
[2016-11-01] MEDS ORDERED: SOD CHLORIDE 0.9% 100 ML ONE (15:57)
[2016-11-01] MEDS ORDERED: IODIXANOL LOCM 100 ML BTL ONE (15:57)
--- NOTE | 2016-11-01 16:35 | RADRPT ---
PROCEDURE: CTA Chest CLINICAL INDICATION: Hypoxia TECHNIQUE: CTA of the chest was performed following the uncomplicated IV administration of 85 cc o f Visipaque 320. Coronal and sagittal images were reconstructed from the axial data set. 3-D volum etric rendered post processing was performed as well. One or more of the following dose reduction t echniques were used: automated exposure control, adjustment of the mA and/or kV according to patient size, use of iterative reconstruction technique. CTDI = 18.05 mGy. DLP = 637.16 mGy-cm. COMPARISON: No prior studies are available for comparison. FINDINGS: No filling defect is present to suggest pulmonary embolism. There is no evidence for pulmonary angelina rial hypertension. There are small to mild bilateral pleural effusions, greater on the left. Consolidation is seen wit hin the right upper and left lower lobes, concerning for pneumonia. Areas of septal thickening are seen bilaterally, suggestive of interstitial pulmonary edema. There is no pneumothorax. The centra l tracheobronchial tree is clear. No gross evidence of pulmonary nodule or mass is identified. There is mild cardiomegaly, without pericardial effusion. Coronary arterial and aortic atherosclero tic calcifications are present. There is no thoracic aortic aneurysm or dissection. No mediastinal , hilar, axillary or supraclavicular lymphadenopathy is identified. Right-sided central venous cath eter tip is in the SVC. The patient is status post distal pancreatectomy and splenectomy. Surgical drain is present in the left upper quadrant. Indeterminate heterogeneously enhancing 2.7 cm left adrenal nodule is identifi ed (3-193). Gallbladder is surgically absent. The osseous structures are remarkable for degenerati ve spondylosis of the spine. No osteolytic or osteoblastic lesion is seen. IMPRESSION: 1. No pulmonary embolism is identified. 2. Consolidation is seen in the right upper and left lower lobes, concerning for pneumonia. 3. There are small to mild bilateral pleural effusions, larger on the left, along with findings sug gestive of interstitial pulmonary edema. 4. Mild cardiomegaly is noted. Coronary arterial and aortic atherosclerotic calcifications are pre sent. 5. The patient is status post distal pancreatectomy, splenectomy, and cholecystectomy. Left upper quadrant surgical drain is in place. 6. Indeterminate heterogeneously enhancing nodule is seen arising from left adrenal gland - neoplas m or metastasis is not excluded. Correlation with prior cross-sectional imaging is recommended. RPTAT: EE .Zac Drake MD, MD Date Time Electronically viewed and signed by .Zac Drake MD, MD on 11/01/2016 16:35 .R/
[2016-11-01 19:10] VITALS: BP 129/60; RESP 18
[2016-11-02] MEDS: ACCU-CHEK XX SCH (02:00)
[2016-11-02 02:25] VITALS: BP 131/69; RESP 18
[2016-11-02] MEDS: NS + KCL 20 MEQ 1,000 ML IV SCH ×2 (03:49→15:53)
[2016-11-02 05:49] LABS: ABNORMAL IP MESSAGE 1; BASOPHIL # 0.1 10^3/ul (0.0-0.1); BASOPHILS % 0.2 % (0.0-2.0); EOSINOPHILS # 0.1 10^3/ul (0.0-0.5); EOSINOPHILS % 0.4 % (0.0-7.0); HEMATOCRIT 32.9 % (37.0-47.0); HEMOGLOBIN 11.4 g/dl (12.0-16.0); LYMPHOCYTES # 0.8 10^3/ul (0.8-2.9); LYMPHOCYTES % 3.6 % (15.0-51.0); MEAN CORPUSCULAR HEMOGLOBIN 30.2 pg (29.0-33.0); MEAN CORPUSCULAR HGB CONC 34.7 g/dl (32.0-37.0); MEAN CORPUSCULAR VOLUME 87.3 fl (82.0-101.0); MEAN PLATELET VOLUME 10.4 fl (7.4-10.4); MONOCYTE # 1.6 10^3/ul (0.3-0.9); MONOCYTES % 6.9 % (0.0-11.0); NEUTROPHILS % 87.8 % (39.0-77.0); PLATELET COUNT 337 10^3/UL (140-415); RED BLOOD COUNT 3.77 10^6/ul (4.20-5.40); RED CELL DISTRIBUTION WIDTH 12.8 % (11.5-14.5); WHITE BLOOD COUNT 22.5 10^3/ul (4.8-10.8)
[2016-11-02 06:04] LABS: POSITIVE DIFF @See below
[2016-11-02 06:04] LABS: INR 1.05; PROTIME 13.7 Sec (12.2-14.2); PT RATIO 1.1
[2016-11-02 06:05] LABS: PARTIAL THROMBOPLASTIN TIME 34.3 Sec (25.0-35.0)
[2016-11-02 06:17] LABS: ALBUMIN 2.8 g/dl (3.3-4.9); ALBUMIN/GLOBULIN RATIO 0.87; BILIRUBIN,INDIRECT 0.3 mg/dl (0-1.1); BILIRUBIN,TOTAL 0.3 mg/dl (0.2-1.3); CALCIUM 8.5 mg/dl (8.4-10.2); CREATININE 0.58 mg/dl (0.44-1.00); MAGNESIUM 1.9 mg/dl (1.7-2.5); PHOSPHORUS 3.1 mg/dl (2.5-4.9); POTASSIUM 4.3 mmol/L (3.5-5.1)
[2016-11-02] MEDS: INSULIN ASPART [NOVOLOG] 3 ML PEN SC SCH ×8 (07:50→21:00)
[2016-11-02 07:59] VITALS: BP 122/60; RESP 18
[2016-11-02] MEDS: ALBUTEROL/IPRATROPIUM (NEB) 3 ML AMP HHN SCH ×3 (09:05→19:53)
[2016-11-02] MEDS: BENAZEPRIL 40 MG TAB PO SCH (09:14)
[2016-11-02] MEDS: traZODone 100 MG TAB PO SCH ×2 (09:14→21:01)
[2016-11-02] MEDS: AMLODIPINE 2.5 MG TAB PO SCH (09:14)
[2016-11-02] MEDS: OXYBUTYNIN (XL) 5 MG TAB PO SCH (09:14)
[2016-11-02] MEDS: DULOXETINE 30 MG CAP DR PO SCH (09:14)
[2016-11-02] MEDS: FAMOTIDINE 20 MG INJ IV SCH (09:14)
[2016-11-02] MEDS: GABAPENTIN 300 MG CAP PO SCH ×3 (09:14→21:01)
[2016-11-02] MEDS: INSULIN GLARGINE [LANtus] 3 ML PEN SC SCH (09:19)
[2016-11-02] MEDS: HEPARIN 5,000 UNIT/0.5 ML VIAL SC SCH ×2 (09:21→21:06)
--- NOTE | 2016-11-02 13:48 | RADRPT ---
Vent Rate: 74 bpm RR Interval: 0 msec VA Interval: 160 msec QRS Duration: 98 msec QT Interval: 396 msec QTC Interval: 439 msec P-R-T Garfield: 46 - 25 - 53 degrees Normal sinus rhythm Septal infarct , age undetermined Abnormal ECG Electronically Signed By: Niarv Sosa [id number]
--- NOTE | 2016-11-02 14:03 | PN ---
Date/Time of Note Date/Time of Note DATE: 11/02/16 TIME: 14:00 Assessment/Plan VTE Prophylaxis VTE Prophylaxis Intervention: heparin Lines/Catheters IV Catheter Type (from Nrs): Central Line Central line still needed: Yes Urinary Cath still in place: Yes Reason Cath still needed: other (indicate) Assessment/Plan Chief Complaint/Hosp Course 1. 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 Status post laparoscopic, hand-assisted distal pancreatectomy and splenectomy on 10/30/2016. Continue pain control. Postoperative management as per surgery team. 2. Acute hypoxic respiratory failure. Etiology unclear. Continue supplemental oxygen. Incentive spirometry. CT angiogram of the chest negative for any ready for any pulmonary embolism. 3. Essential hypertension. Continue antihypertensives. 4. Diabetes mellitus. Continue sliding scale insulin. Latest hemoglobin A1c 11.2. 5. Bipolar disorder. Continue mood stabilizers. 6. Peripheral neuropathy. Continue gabapentin. 7. Fibromyalgia. Continue Cymbalta. 8. Fluids, electrolytes, and nutrition. Carbohydrate controlled diet. 9. DVT prophylaxis. Subcutaneous heparin. 10. Gastrointestinal prophylaxis with histamine 2 receptor blockers. 11. Plan. Continue pain management. Continue postoperative management as per hepatobiliary surgery. The patient's underlying leukocytosis could be most probably secondary to splenectomy. Discussed with Dr. Norwood. 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 Pain well controlled. Exam/Review of Systems Vital Signs Vitals Vital Signs Date Time Temp Pulse Resp B/P Pulse Ox O2 Delivery O2 Flow Rate FiO2 11/02/16 09:05 79 16 95 Nasal Cannula 3.0 11/02/16 07:59 98.4 122/60 Intake and Output 11/01/16 11/01/16 11/02/16 15:00 23:00 07:00 Intake Total 700 ml 1340 ml 250 ml Output Total 1520 ml 1200 ml Balance 700 ml -180 ml -950 ml Exam General: Adequately build 56 year-old female lying in bed in no apparent distress. HEENT: Normocephalic, atraumatic. Eyes: Anicteric sclerae, conjunctivae clear. ENT: Nasal septum midline, oral mucosa moist. Neck supple, no JVD noticed. Respiratory: Bilaterally diminished breath sounds. No use of accessory muscles of respiration. No adventitious breath sounds. Cardiovascular: S1, S2 heard. No murmurs or gallops. Abdomen:. juaquin-incisional tenderness. GALO drain in place. Bowel sounds positive in all 4 quadrants. Genitourinary: Deferred. Extremities: No cyanosis, no clubbing, no edema. Peripheral pulses palpable. Neurologic: Cranial nerves II through XII grossly intact. The patient is awake, alert, and oriented. Skin: Normal skin turgor. No skin rashes. Results Result Diagram: 11/02/16 0512 11/02/16 0513 Results 24 hrs Laboratory Tests Test 11/01/16 18:07 11/01/16 20:59 11/02/16 05:12 11/02/16 05:13 Bedside Glucose 116 87 White Blood Count 22.5 H Red Blood Count 3.77 L Hemoglobin 11.4 L Hematocrit 32.9 L Mean Corpuscular Volume 87.3 Mean Corpuscular Hemoglobin 30.2 Mean Corpuscular Hemoglobin Concent 34.7 Red Cell Distribution Width 12.8 Platelet Count 337 Mean Platelet Volume 10.4 Neutrophils % 87.8 H Lymphocytes % 3.6 L Monocytes % 6.9 Eosinophils % 0.4 Basophils % 0.2 Nucleated Red Blood Cells % 0.0 Neutrophils # (Manual) 20 H Lymphocytes # 0.8 Monocytes # 1.6 H Eosinophils # 0.1 Basophils # 0.1 Nucleated Red Blood Cells # 0.0 Prothrombin Time 13.7 Prothrombin Time Ratio 1.1 INR International Normalized Ratio 1.05 Activated Partial Thromboplast Time 34.3 Sodium Level 137 Potassium Level 4.3 Chloride Level 99 Carbon Dioxide Level 27 Anion Gap 15 Blood Urea Nitrogen 10 Creatinine 0.58 Glucose Level 70 # Lactic Acid Level 1.0 Calcium Level 8.5 Phosphorus Level 3.1 Magnesium Level 1.9 Total Bilirubin 0.3 Direct Bilirubin 0.00 Indirect Bilirubin 0.3 Aspartate Amino Transf (AST/SGOT) 37 Alanine Aminotransferase (ALT/SGPT) 45 Alkaline Phosphatase 159 #H B-Type Natriuretic Peptide 1160 H Total Protein 6.0 L Albumin 2.8 L Globulin 3.20 Albumin/Globulin Ratio 0.87 Test 11/02/16 08:47 11/02/16 12:55 Bedside Glucose 111 104 Medications Medications Current Medications Diphenhydramine HCl (Benadryl) 25 mg Q4H PRN IV PRURITUS; Start 10/30/16 at 12: 00 Nalbuphine HCl (Nubain) 10 mg Q4H PRN IV PRURITUS; Start 10/30/16 at 12:00 Naloxone HCl (Narcan) 0.2 mg Q2M PRN IV FOR RESP RATE 8 OR LESS; Start at 12:00 Docusate Sodium (Colace) 100 mg BID PRN PO CONSTIPATION; Start 10/30/16 at 12: 00 Bisacodyl (Dulcolax Supp) 10 mg BID PRN NV CONSTIPATION; Start 10/30/16 at 12: 00 Sodium Biphosphate/ Sodium Phosphate (Fleet Enema) 133 ml BID PRN NV CONSTIPATION; Start 10/30/16 at 12:00 Amlodipine Besylate (Norvasc) 2.5 mg DAILY PO Last administered on 11/02/16 09 :14; Admin Dose 2.5 MG; Start 10/31/16 at 09:00 Benazepril HCl (Lotensin) 40 mg DAILY PO Last administered on 11/02/16 09:14; Admin Dose 40 MG; Start 10/31/16 at 09:00 Duloxetine HCl (Cymbalta) 60 mg DAILY PO Last administered on 11/02/16 09:14; Admin Dose 60 MG; Start 10/31/16 at 09:00 Gabapentin (Neurontin) 300 mg TID PO Last administered on 11/02/16 13:03; Admin Dose 300 MG; Start 10/30/16 at 21:00 Oxybutynin Chloride (Ditropan Xl) 5 mg DAILY PO Last administered on 11/02/16 09:14; Admin Dose 5 MG; Start 10/31/16 at 09:00 Trazodone HCl (Desyrel) 100 mg BID PO Last administered on 11/02/16 09:14; Admin Dose 100 MG; Start 10/30/16 at 21:00 Ondansetron HCl (Zofran Inj) 4 mg Q6H PRN IV NAUSEA AND/OR VOMITING Last administered on 11/01/16 02:53; Admin Dose 4 MG; Start 10/30/16 at 14:00 Acetaminophen (Tylenol Tab) 650 mg Q6H PRN PO PAIN LEVEL 1-3 OR FEVER Last administered on 11/01/16 02:46; Admin Dose 650 MG; Start 10/30/16 at 14:00 Acetaminophen (Tylenol Supp) 650 mg Q6H PRN NV PAIN LEVEL 1-3 OR FEVER; Start 10/30/16 at 14:00 Acetaminophen/ Hydrocodone Bitart ([place] (5/325)) 1 tab Q6H PRN PO MODERATE PAIN LEVEL 4-6; Start 10/30/16 at 14:00 Docusate Sodium (Colace) 100 mg Q12H PRN PO CONSTIPATION; Start 10/30/16 at 14: 00 Magnesium Hydroxide (Milk Of Mag) 30 ml DAILY PRN PO CONSTIPATION; Start at 14:00 Diagnostic Test (Pha) (Accu-Chek) 1 ea 02 XX ; Start 10/31/16 at 02:00 Miscellaneous Information 1 ea NOTE XX ; Start 10/30/16 at 14:30 Glucose (Glutose) 15 gm Q15M PRN PO DECREASED GLUCOSE; Start 10/30/16 at 14:30 Glucose (Glutose) 22.5 gm Q15M PRN PO DECREASED GLUCOSE; Start 10/30/16 at 14: 30 Dextrose (D50w Syringe) 25 ml Q15M PRN IV DECREASED GLUCOSE; Start 10/30/16 at 14:30 Dextrose (D50w Syringe) 50 ml Q15M PRN IV DECREASED GLUCOSE; Start 10/30/16 at 14:30 Glucagon (Glucagen) 1 mg Q15M PRN IM DECREASED GLUCOSE; Start 10/30/16 at 14:30 Glucose (Glutose) 15 gm Q15M PRN BUCCAL DECREASED GLUCOSE; Start 10/30/16 at 14 :30 Hydromorphone HCl (Dilaudid) 0.5 mg Q2 PRN IV PAIN; Start 10/30/16 at 18:00 Hydromorphone HCl (Dilaudid) 1 mg Q2 PRN IV PAIN Last administered on 13:02; Admin Dose 1 MG; Start 10/30/16 at 18:00 Famotidine (Pepcid Iv) 20 mg BID IV Last administered on 11/02/16 09:14; Admin Dose 20 MG; Start 11/01/16 at 09:00 Insulin Glargine 20 unit 20 unit DAILY@08 SC Last administered on 11/02/16 09: 19; Admin Dose 20 UNIT; Start 11/01/16 at 08:00 Potassium Chloride/Sodium Chloride (NS-KCl 20 Meq) 1,000 ml @ 100 mls/hr Q10H IV Last administered on 11/02/16 03:49; Admin Dose 100 MLS/HR; Start 10/31/16 at 17:00 Hydromorphone HCl (Dilaudid ELECTRONIC PREPRESS TECHNICIAN) 0 MG/HR CONTINUOUS RATE ... Q4PCA IV Last administered on 11/01/16 03:46; Admin Dose 6 MG; Start 10/31/16 at 20:30 Heparin Sodium (Porcine) (Heparin (5000 Units/0.5 ml)) 5,000 unit BID SC Last administered on 11/02/16 09:21; Admin Dose 5,000 UNIT; Start 10/31/16 at 23:30 GILDARDO KING NP Nov 02, 2016 14:03
[2016-11-02 14:34] VITALS: BP 124/64; RESP 18
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
[2016-11-02] MEDS ORDERED: KETOROLAC 30 MG INJ IV PRN (15:30)
[2016-11-02 19:00] VITALS: BP 116/61; RESP 18
[2016-11-02] MEDS: FAMOTIDINE 20 MG TAB PO SCH (21:01)
[2016-11-03] MEDS: ACCU-CHEK XX SCH ×2 (02:00→21:27)
[2016-11-03 02:05] VITALS: BP 118/58; RESP 20
[2016-11-03] MEDS: NS + KCL 20 MEQ 1,000 ML IV SCH (04:47)
[2016-11-03 05:17] LABS: BASOPHIL # 0.1 10^3/ul (0.0-0.1); BASOPHILS % 0.5 % (0.0-2.0); EOSINOPHILS # 0.5 10^3/ul (0.0-0.5); EOSINOPHILS % 3.3 % (0.0-7.0); HEMATOCRIT 32.8 % (37.0-47.0); LYMPHOCYTES % 6.9 % (15.0-51.0); MEAN CORPUSCULAR HEMOGLOBIN 30.1 pg (29.0-33.0); MEAN CORPUSCULAR HGB CONC 33.5 g/dl (32.0-37.0); MEAN CORPUSCULAR VOLUME 89.6 fl (82.0-101.0); MEAN PLATELET VOLUME 10.3 fl (7.4-10.4); MONOCYTE # 1.3 10^3/ul (0.3-0.9); MONOCYTES % 9.6 % (0.0-11.0); NEUTROPHILS % 78.8 % (39.0-77.0); PLATELET COUNT 416 10^3/UL (140-415); RED BLOOD COUNT 3.66 10^6/ul (4.20-5.40); RED CELL DISTRIBUTION WIDTH 12.5 % (11.5-14.5); WHITE BLOOD COUNT 13.9 10^3/ul (4.8-10.8)
[2016-11-03 05:29] LABS: INR 1.03; PROTIME 13.5 Sec (12.2-14.2); PT RATIO 1.1
[2016-11-03 05:30] LABS: PARTIAL THROMBOPLASTIN TIME 39.4 Sec (25.0-35.0)
[2016-11-03 05:38] LABS: MAGNESIUM 1.9 mg/dl (1.7-2.5); PHOSPHORUS 3.6 mg/dl (2.5-4.9)
[2016-11-03 05:42] LABS: CALCIUM 8.4 mg/dl (8.4-10.2); CREATININE 0.61 mg/dl (0.44-1.00); POTASSIUM 4.3 mmol/L (3.5-5.1)
[2016-11-03 05:43] LABS: ALBUMIN 2.7 g/dl (3.3-4.9); ALBUMIN/GLOBULIN RATIO 0.87; BILIRUBIN,INDIRECT 0.2 mg/dl (0-1.1); BILIRUBIN,TOTAL 0.2 mg/dl (0.2-1.3); CALCIUM 8.5 mg/dl (8.4-10.2); CREATININE 0.59 mg/dl (0.44-1.00); POTASSIUM 4.4 mmol/L (3.5-5.1); TOTAL PROTEIN 5.8 g/dl (6.1-8.1)
[2016-11-03] MEDS: ALBUTEROL/IPRATROPIUM (NEB) 3 ML AMP HHN SCH ×3 (07:41→20:28)
[2016-11-03 08:10] VITALS: BP 120/65; RESP 15
[2016-11-03] MEDS: INSULIN ASPART [NOVOLOG] 3 ML PEN SC SCH ×7 (08:51→21:00)
[2016-11-03] MEDS: GABAPENTIN 300 MG CAP PO SCH ×3 (09:06→21:03)
[2016-11-03] MEDS: BENAZEPRIL 40 MG TAB PO SCH (09:06)
[2016-11-03] MEDS: DULOXETINE 30 MG CAP DR PO SCH (09:06)
[2016-11-03] MEDS: FAMOTIDINE 20 MG TAB PO SCH ×2 (09:06→21:03)
[2016-11-03] MEDS: OXYBUTYNIN (XL) 5 MG TAB PO SCH (09:06)
[2016-11-03] MEDS: traZODone 100 MG TAB PO SCH ×2 (09:06→21:03)
[2016-11-03] MEDS: AMLODIPINE 2.5 MG TAB PO SCH (09:07)
[2016-11-03] MEDS: HEPARIN 5,000 UNIT/0.5 ML VIAL SC SCH ×2 (09:10→21:06)
[2016-11-03] MEDS: INSULIN GLARGINE [LANtus] 3 ML PEN SC SCH (09:13)
[2016-11-03 14:00] VITALS: BP 106/57; RESP 16
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
--- NOTE | 2016-11-03 15:41 | PN ---
Date/Time of Note Date/Time of Note DATE: 11/03/16 TIME: 15:38 Assessment/Plan VTE Prophylaxis VTE Prophylaxis Intervention: heparin Lines/Catheters IV Catheter Type (from Nrsg): Central Line Central line still needed: Yes Urinary Cath still in place: Yes Reason Cath still needed: other (indicate) (monitor I&O) Assessment/Plan Chief Complaint/Hosp Course Assessment and plan 1. 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 Continue postop care. Diet per surgeon. . Continue with analgesics. 2. History of diabetes. A1c of 11.2. continue insulin regimen 3. Essential hypertension. Continue antihypertensives and adjust needed 4. Peripheral neuropathy. Continue on Neurontin and analgesics 5. History of bipolar/PTSD. Continue on mood stabilizing agents 6. History of fibromyalgia. Continue on analgesics. 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 Reported chest discomfort. Patient does report that her chest discomfort starts from her surgical site and spread. Likely radiation of pain from surgical site. Continue with analgesics. Troponin negative. Chest x-ray showed some atelectasis and right lower lung lobe. Encourage incentive spirometry. Will monitor for now. 8.Hypoxemia. Patient noted with ABG with low PO2. Encourage incentive spirometry. Titrate down O2 as tolerated Disposition and plan: continue analgesics. titrate off o2. encourage IS. continue with surgeon recs. Discussed plan of care with Dr. Souza Problems: Subjective 24 Hr Interval Summary Free Text/Dictation Resting at this time. Less reported chest pain at this time less shortness of breath noted Exam/Review of Systems Vital Signs Vitals Vital Signs Date Time Temp Pulse Resp B/P Pulse Ox O2 Delivery O2 Flow Rate FiO2 11/03/16 14:00 98.0 76 16 106/57 98 11/03/16 12:33 3.0 11/03/16 09:00 Nasal Cannula Intake and Output 11/02/16 11/02/16 11/03/16 15:00 23:00 07:00 Intake Total 400 ml 1400 ml 650 ml Output Total 5 ml 5 ml 1255 ml Balance 395 ml 1395 ml -605 ml Exam Constitutional: alert, oriented Psych: nl mood/affect Head: normocephalic Neck: non-tender Respiratory: clear to auscultation, normal air movement Cardiovascular: regular rate and rhythm Gastrointestinal: soft, tender Musculoskeletal: nl extremities to inspection Extremities: normal pulses Results Result Diagram: 11/03/16 0449 11/03/16 0449 Results 24 hrs Laboratory Tests Test 11/02/16 17:54 11/02/16 18:54 11/02/16 20:59 11/03/16 04:49 Bedside Glucose 73 134 142 White Blood Count 13.9 #H Red Blood Count 3.66 L Hemoglobin 11.0 L Hematocrit 32.8 L Mean Corpuscular Volume 89.6 Mean Corpuscular Hemoglobin 30.1 Mean Corpuscular Hemoglobin Concent 33.5 Red Cell Distribution Width 12.5 Platelet Count 416 #H Mean Platelet Volume 10.3 Neutrophils % 78.8 H Lymphocytes % 6.9 L Monocytes % 9.6 Eosinophils % 3.3 Basophils % 0.5 Nucleated Red Blood Cells % 0.0 Neutrophils # (Manual) 11 H Lymphocytes # 1.0 Monocytes # 1.3 H Eosinophils # 0.5 Basophils # 0.1 Nucleated Red Blood Cells # 0.0 Prothrombin Time 13.5 Prothrombin Time Ratio 1.1 INR International Normalized Ratio 1.03 Activated Partial Thromboplast Time 39.4 H Sodium Level 134 L Potassium Level 4.3 Chloride Level 103 Carbon Dioxide Level 27 Anion Gap 8 Blood Urea Nitrogen 10 Creatinine 0.61 Glucose Level 84 Lactic Acid Level 1.0 Calcium Level 8.4 Phosphorus Level 3.6 Magnesium Level 1.9 Total Bilirubin 0.2 Direct Bilirubin 0.00 Indirect Bilirubin 0.2 Aspartate Amino Transf (AST/SGOT) 21 Alanine Aminotransferase (ALT/SGPT) 35 Alkaline Phosphatase 189 H B-Type Natriuretic Peptide 819 H Total Protein 5.8 L Albumin 2.7 L Globulin 3.10 Albumin/Globulin Ratio 0.87 Test 11/03/16 08:26 11/03/16 12:36 Bedside Glucose 82 75 Medications Medications Current Medications Diphenhydramine HCl (Benadryl) 25 mg Q4H PRN IV PRURITUS; Start 10/30/16 at 12: 00 Nalbuphine HCl (Nubain) 10 mg Q4H PRN IV PRURITUS; Start 10/30/16 at 12:00 Naloxone HCl (Narcan) 0.2 mg Q2M PRN IV FOR RESP RATE 8 OR LESS; Start at 12:00 Docusate Sodium (Colace) 100 mg BID PRN PO CONSTIPATION; Start 10/30/16 at 12: 00 Bisacodyl (Dulcolax Supp) 10 mg BID PRN [place] CONSTIPATION; Start 10/30/16 at 12: 00 Sodium Biphosphate/ Sodium Phosphate (Fleet Enema) 133 ml BID PRN [place] CONSTIPATION; Start 10/30/16 at 12:00 Amlodipine Besylate (Norvasc) 2.5 mg DAILY PO Last administered on 11/03/16 09 :07; Admin Dose 2.5 MG; Start 10/31/16 at 09:00 Benazepril HCl (Lotensin) 40 mg DAILY PO Last administered on 11/03/16 09:06; Admin Dose 40 MG; Start 10/31/16 at 09:00 Duloxetine HCl (Cymbalta) 60 mg DAILY PO Last administered on 11/03/16 09:06; Admin Dose 60 MG; Start 10/31/16 at 09:00 Gabapentin (Neurontin) 300 mg TID PO Last administered on 11/03/16 13:03; Admin Dose 300 MG; Start 10/30/16 at 21:00 Oxybutynin Chloride (Ditropan Xl) 5 mg DAILY PO Last administered on 11/03/16 09:06; Admin Dose 5 MG; Start 10/31/16 at 09:00 Trazodone HCl (Desyrel) 100 mg BID PO Last administered on 11/03/16 09:06; Admin Dose 100 MG; Start 10/30/16 at 21:00 Ondansetron HCl (Zofran Inj) 4 mg Q6H PRN IV NAUSEA AND/OR VOMITING Last administered on 11/01/16 02:53; Admin Dose 4 MG; Start 10/30/16 at 14:00 Acetaminophen (Tylenol Tab) 650 mg Q6H PRN PO PAIN LEVEL 1-3 OR FEVER Last administered on 11/01/16 02:46; Admin Dose 650 MG; Start 10/30/16 at 14:00 Acetaminophen (Tylenol Supp) 650 mg Q6H PRN [place] PAIN LEVEL 1-3 OR FEVER; Start 10/30/16 at 14:00 Acetaminophen/ Hydrocodone Bitart ([place] (5/325)) 1 tab Q6H PRN PO MODERATE PAIN LEVEL 4-6; Start 10/30/16 at 14:00 Docusate Sodium (Colace) 100 mg Q12H PRN PO CONSTIPATION; Start 10/30/16 at 14: 00 Magnesium Hydroxide (Milk Of Mag) 30 ml DAILY PRN PO CONSTIPATION; Start at 14:00 Diagnostic Test (Pha) (Accu-Chek) 1 ea 02 XX ; Start 10/31/16 at 02:00 Miscellaneous Information 1 ea NOTE XX ; Start 10/30/16 at 14:30 Glucose (Glutose) 15 gm Q15M PRN PO DECREASED GLUCOSE; Start 10/30/16 at 14:30 Glucose (Glutose) 22.5 gm Q15M PRN PO DECREASED GLUCOSE; Start 10/30/16 at 14: 30 Dextrose (D50w Syringe) 25 ml Q15M PRN IV DECREASED GLUCOSE; Start 10/30/16 at 14:30 Dextrose (D50w Syringe) 50 ml Q15M PRN IV DECREASED GLUCOSE; Start 10/30/16 at 14:30 Glucagon (Glucagen) 1 mg Q15M PRN IM DECREASED GLUCOSE; Start 10/30/16 at 14:30 Glucose (Glutose) 15 gm Q15M PRN BUCCAL DECREASED GLUCOSE; Start 10/30/16 at 14 :30 Hydromorphone HCl (Dilaudid) 0.5 mg Q2 PRN IV PAIN; Start 10/30/16 at 18:00 Hydromorphone HCl (Dilaudid) 1 mg Q2 PRN IV PAIN Last administered on 13:02; Admin Dose 1 MG; Start 10/30/16 at 18:00 Insulin Glargine (Lantus) 20 unit DAILY@08 SC Last administered on 11/03/16 09 :13; Admin Dose 20 UNIT; Start 11/01/16 at 08:00 Hydromorphone HCl (Dilaudid BOOKSTORE MANAGER) 0 MG/HR CONTINUOUS RATE ... Q4PCA IV Last administered on 11/01/16 03:46; Admin Dose 6 MG; Start 10/31/16 at 20:30 Heparin Sodium (Porcine) (Heparin (5000 Units/0.5 ml)) 5,000 unit BID SC Last administered on 11/03/16 09:10; Admin Dose 5,000 UNIT; Start 10/31/16 at 23:30 Famotidine (Pepcid) 20 mg BID PO Last administered on 11/03/16 09:06; Admin Dose 20 MG; Start 11/02/16 at 21:00 Ketorolac Tromethamine (Toradol) 30 mg Q6H PRN IV PAIN; Start 11/02/16 at 15:30 KERMIT CARDOZA Nov 03, 2016 15:41
[2016-11-03] MEDS: HYDROCODONE/APAP (5/325) TAB PO PRN (17:29)
[2016-11-03 19:00] VITALS: BP 106/54; RESP 18
[2016-11-04 01:33] VITALS: BP 134/65; RESP 18
[2016-11-04] MEDS: HYDROmorphONE 1 MG/ML SYG IV PRN ×3 (01:40→17:56)
[2016-11-04 05:05] LABS: BASOPHIL # 0.1 10^3/ul (0.0-0.1); BASOPHILS % 0.7 % (0.0-2.0); EOSINOPHILS # 0.5 10^3/ul (0.0-0.5); EOSINOPHILS % 4.7 % (0.0-7.0); LYMPHOCYTES # 1.1 10^3/ul (0.8-2.9); LYMPHOCYTES % 11.2 % (15.0-51.0); MEAN CORPUSCULAR HEMOGLOBIN 30.3 pg (29.0-33.0); MEAN CORPUSCULAR HGB CONC 33.3 g/dl (32.0-37.0); MEAN CORPUSCULAR VOLUME 90.9 fl (82.0-101.0); MEAN PLATELET VOLUME 9.9 fl (7.4-10.4); MONOCYTE # 1.2 10^3/ul (0.3-0.9); MONOCYTES % 11.7 % (0.0-11.0); NEUTROPHILS % 69.8 % (39.0-77.0); PLATELET COUNT 458 10^3/UL (140-415); RED CELL DISTRIBUTION WIDTH 12.5 % (11.5-14.5); WHITE BLOOD COUNT 10.1 10^3/ul (4.8-10.8)
[2016-11-04 05:22] LABS: INR 0.97; PROTIME 12.9 Sec (12.2-14.2)
[2016-11-04 05:23] LABS: PARTIAL THROMBOPLASTIN TIME 39.1 Sec (25.0-35.0)
[2016-11-04 05:45] LABS: CALCIUM 8.4 mg/dl (8.4-10.2); MAGNESIUM 1.9 mg/dl (1.7-2.5); PHOSPHORUS 4.1 mg/dl (2.5-4.9)
[2016-11-04 05:46] LABS: CALCIUM 8.4 mg/dl (8.4-10.2); CREATININE 0.63 mg/dl (0.44-1.00); POTASSIUM 4.1 mmol/L (3.5-5.1)
[2016-11-04] MEDS: ALBUTEROL/IPRATROPIUM (NEB) 3 ML AMP HHN SCH ×3 (07:38→19:29)
[2016-11-04] MEDS: INSULIN ASPART [NOVOLOG] 3 ML PEN SC SCH ×7 (07:50→21:00)
[2016-11-04 07:59] VITALS: BP 126/66; RESP 18
[2016-11-04] MEDS: GABAPENTIN 300 MG CAP PO SCH ×3 (08:26→20:58)
[2016-11-04] MEDS: BENAZEPRIL 40 MG TAB PO SCH (08:27)
[2016-11-04] MEDS: FAMOTIDINE 20 MG TAB PO SCH ×2 (08:27→20:58)
[2016-11-04] MEDS: DULOXETINE 30 MG CAP DR PO SCH (08:27)
[2016-11-04] MEDS: AMLODIPINE 2.5 MG TAB PO SCH (08:27)
[2016-11-04] MEDS: OXYBUTYNIN (XL) 5 MG TAB PO SCH (08:27)
[2016-11-04] MEDS: traZODone 100 MG TAB PO SCH ×2 (08:27→20:58)
[2016-11-04] MEDS: HEPARIN 5,000 UNIT/0.5 ML VIAL SC SCH ×2 (08:28→20:59)
[2016-11-04] MEDS: INSULIN GLARGINE [LANtus] 3 ML PEN SC SCH (08:30)
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
[2016-11-04] MEDS: HYDROCODONE/APAP (5/325) TAB PO PRN (12:53)
[2016-11-04 15:52] VITALS: BP 114/64; RESP 16
--- NOTE | 2016-11-04 16:00 | PN ---
Date/Time of Note Date/Time of Note DATE: 11/04/16 TIME: 15:58 Assessment/Plan VTE Prophylaxis VTE Prophylaxis Intervention: heparin Lines/Catheters IV Catheter Type (from Nrsg): Saline Lock Urinary Cath still in place: Yes Reason Cath still needed: other (indicate) (monitor I&O) Assessment/Plan Chief Complaint/Hosp Course Assessment and plan 1. 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 Continue postop care. Diet per surgeon. . Continue with analgesics. 2. History of diabetes. A1c of 11.2. continue insulin regimen 3. Essential hypertension. Continue antihypertensives and adjust needed 4. Peripheral neuropathy. Continue on Neurontin and analgesics 5. History of bipolar/PTSD. Continue on mood stabilizing agents 6. History of fibromyalgia. Continue on analgesics. 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 Reported chest discomfort. Patient does report that her chest discomfort starts from her surgical site and spread. Likely radiation of pain from surgical site. Continue with analgesics. Troponin negative. Chest x-ray showed some atelectasis and right lower lung lobe. Encourage incentive spirometry. Will monitor for now. 8.Hypoxemia. Patient noted with ABG with low PO2. Encourage incentive spirometry. Titrate down O2 as tolerated Disposition and plan: continue analgesics. titrate off o2. encourage IS. Tentative plan for drain removal 11/05/16. Anticipate discharge within the next 24 hours if medically stable and cleared by consultants Discussed plan of care with Dr. Souza Problems: Subjective 24 Hr Interval Summary Free Text/Dictation Reports less abdominal pain at this time Exam/Review of Systems Vital Signs Vitals Vital Signs Date Time Temp Pulse Resp B/P Pulse Ox O2 Delivery O2 Flow Rate FiO2 11/04/16 15:52 98.3 65 16 114/64 93 11/04/16 14:06 Nasal Cannula 2.0 Intake and Output 11/03/16 11/03/16 11/04/16 15:00 23:00 07:00 Intake Total 750 ml 1000 ml 950 ml Output Total 705 ml 910 ml Balance 750 ml 295 ml 40 ml Exam Constitutional: alert, oriented Psych: nl mood/affect Head: normocephalic Neck: non-tender Respiratory: clear to auscultation, normal air movement Cardiovascular: regular rate and rhythm Gastrointestinal: soft, tender Musculoskeletal: nl extremities to inspection Extremities: normal pulses Results Result Diagram: 11/04/16 0432 11/04/16 0432 Results 24 hrs Laboratory Tests Test 11/03/16 17:31 11/03/16 21:01 11/04/16 04:32 11/04/16 08:25 Bedside Glucose 75 179 128 White Blood Count 10.1 # Red Blood Count 3.30 L Hemoglobin 10.0 L Hematocrit 30.0 L Mean Corpuscular Volume 90.9 Mean Corpuscular Hemoglobin 30.3 Mean Corpuscular Hemoglobin Concent 33.3 Red Cell Distribution Width 12.5 Platelet Count 458 H Mean Platelet Volume 9.9 Neutrophils % 69.8 Lymphocytes % 11.2 L Monocytes % 11.7 H Eosinophils % 4.7 Basophils % 0.7 Nucleated Red Blood Cells % 0.0 Neutrophils # (Manual) 7 Lymphocytes # 1.1 Monocytes # 1.2 H Eosinophils # 0.5 Basophils # 0.1 Nucleated Red Blood Cells # 0.0 Prothrombin Time 12.9 Prothrombin Time Ratio 1.0 INR International Normalized Ratio 0.97 Activated Partial Thromboplast Time 39.1 H Sodium Level 132 L Potassium Level 4.1 Chloride Level 99 Carbon Dioxide Level 29 Anion Gap 8 Blood Urea Nitrogen 11 Creatinine 0.63 Glucose Level 117 Calcium Level 8.4 Phosphorus Level 4.1 Magnesium Level 1.9 B-Type Natriuretic Peptide 492 H Test 11/04/16 12:48 Bedside Glucose 228 H Medications Medications Current Medications Diphenhydramine HCl (Benadryl) 25 mg Q4H PRN IV PRURITUS; Start 10/30/16 at 12: 00 Nalbuphine HCl (Nubain) 10 mg Q4H PRN IV PRURITUS; Start 10/30/16 at 12:00 Naloxone HCl (Narcan) 0.2 mg Q2M PRN IV FOR RESP RATE 8 OR LESS; Start at 12:00 Docusate Sodium (Colace) 100 mg BID PRN PO CONSTIPATION; Start 10/30/16 at 12: 00 Bisacodyl (Dulcolax Supp) 10 mg BID PRN [place] CONSTIPATION; Start 10/30/16 at 12: 00 Sodium Biphosphate/ Sodium Phosphate (Fleet Enema) 133 ml BID PRN [place] CONSTIPATION; Start 10/30/16 at 12:00 Amlodipine Besylate (Norvasc) 2.5 mg DAILY PO Last administered on 11/04/16t 08 :27; Admin Dose 2.5 MG; Start 10/31/16 at 09:00 Benazepril HCl (Lotensin) 40 mg DAILY PO Last administered on 11/04/16 08:27; Admin Dose 40 MG; Start 10/31/16 at 09:00 Duloxetine HCl (Cymbalta) 60 mg DAILY PO Last administered on 11/04/16 08:27; Admin Dose 60 MG; Start 10/31/16 at 09:00 Gabapentin (Neurontin) 300 mg TID PO Last administered on 11/04/16 12:53; Admin Dose 300 MG; Start 10/30/16 at 21:00 Oxybutynin Chloride (Ditropan Xl) 5 mg DAILY PO Last administered on 11/04/16 08:27; Admin Dose 5 MG; Start 10/31/16 at 09:00 Trazodone HCl (Desyrel) 100 mg BID PO Last administered on 11/04/16 08:27; Admin Dose 100 MG; Start 10/30/16 at 21:00 Ondansetron HCl (Zofran Inj) 4 mg Q6H PRN IV NAUSEA AND/OR VOMITING Last administered on 11/01/16 02:53; Admin Dose 4 MG; Start 10/30/16 at 14:00 Acetaminophen (Tylenol Tab) 650 mg Q6H PRN PO PAIN LEVEL 1-3 OR FEVER Last administered on 11/01/16 02:46; Admin Dose 650 MG; Start 10/30/16 at 14:00 Acetaminophen (Tylenol Supp) 650 mg Q6H PRN [place] PAIN LEVEL 1-3 OR FEVER; Start 10/30/16 at 14:00 Acetaminophen/ Hydrocodone Bitart ([place] (5/325)) 1 tab Q6H PRN PO MODERATE PAIN LEVEL 4-6 Last administered on 11/04/16 12:53; Admin Dose 1 TAB; Start at 14:00 Docusate Sodium (Colace) 100 mg Q12H PRN PO CONSTIPATION; Start 10/30/16 at 14: 00 Magnesium Hydroxide (Milk Of Mag) 30 ml DAILY PRN PO CONSTIPATION; Start at 14:00 Diagnostic Test (Pha) (Accu-Chek) 1 ea 02 XX ; Start 10/31/16 at 02:00 Miscellaneous Information 1 ea NOTE XX ; Start 10/30/16 at 14:30 Glucose (Glutose) 15 gm Q15M PRN PO DECREASED GLUCOSE; Start 10/30/16 at 14:30 Glucose (Glutose) 22.5 gm Q15M PRN PO DECREASED GLUCOSE; Start 10/30/16 at 14: 30 Dextrose (D50w Syringe) 25 ml Q15M PRN IV DECREASED GLUCOSE; Start 10/30/16 at 14:30 Dextrose (D50w Syringe) 50 ml Q15M PRN IV DECREASED GLUCOSE; Start 10/30/16 at 14:30 Glucagon (Glucagen) 1 mg Q15M PRN IM DECREASED GLUCOSE; Start 10/30/16 at 14:30 Glucose (Glutose) 15 gm Q15M PRN BUCCAL DECREASED GLUCOSE; Start 10/30/16 at 14 :30 Hydromorphone HCl (Dilaudid) 0.5 mg Q2 PRN IV PAIN; Start 10/30/16 at 18:00 Hydromorphone HCl (Dilaudid) 1 mg Q2 PRN IV PAIN Last administered on 10:24; Admin Dose 1 MG; Start 10/30/16 at 18:00 Insulin Glargine (Lantus) 20 unit DAILY@08 SC Last administered on 11/04/16 08 :30; Admin Dose 20 UNIT; Start 11/01/16 at 08:00 Hydromorphone HCl (Dilaudid DISPATCHER MAINTENANCE SERVICE) 0 MG/HR CONTINUOUS RATE ... Q4PCA IV Last administered on 11/01/16 03:46; Admin Dose 6 MG; Start 10/31/16 at 20:30 Heparin Sodium (Porcine) (Heparin (5000 Units/0.5 ml)) 5,000 unit BID SC Last administered on 11/04/16 08:28; Admin Dose 5,000 UNIT; Start 10/31/16 at 23:30 Famotidine (Pepcid) 20 mg BID PO Last administered on 11/04/16 08:27; Admin Dose 20 MG; Start 11/02/16 at 21:00 Ketorolac Tromethamine (Toradol) 30 mg Q6H PRN IV PAIN; Start 11/02/16 at 15:30 KERMIT CARDOZA Nov 04, 2016 15:59
[2016-11-04 19:44] VITALS: BP 123/59; RESP 19
[2016-11-05] MEDS: ACCU-CHEK XX SCH (02:00)
[2016-11-05 02:40] VITALS: BP 128/76; RESP 18
[2016-11-05 05:33] LABS: BASOPHIL # 0.1 10^3/ul (0.0-0.1); BASOPHILS % 0.8 % (0.0-2.0); EOSINOPHILS # 0.7 10^3/ul (0.0-0.5); EOSINOPHILS % 5.4 % (0.0-7.0); HEMATOCRIT 33.4 % (37.0-47.0); LYMPHOCYTES # 1.1 10^3/ul (0.8-2.9); LYMPHOCYTES % 8.5 % (15.0-51.0); MEAN CORPUSCULAR HEMOGLOBIN 29.6 pg (29.0-33.0); MEAN CORPUSCULAR HGB CONC 32.9 g/dl (32.0-37.0); MEAN PLATELET VOLUME 9.7 fl (7.4-10.4); MONOCYTE # 1.4 10^3/ul (0.3-0.9); MONOCYTES % 11.2 % (0.0-11.0); NEUTROPHILS % 71.7 % (39.0-77.0); NUCLEATED RED BLOOD CELLS% 0.2 /100WBC (0.0-0.0); PLATELET COUNT 557 10^3/UL (140-415); RED BLOOD COUNT 3.71 10^6/ul (4.20-5.40); RED CELL DISTRIBUTION WIDTH 12.5 % (11.5-14.5); WHITE BLOOD COUNT 12.6 10^3/ul (4.8-10.8)
[2016-11-05 06:23] LABS: CALCIUM 8.9 mg/dl (8.4-10.2); CREATININE 0.59 mg/dl (0.44-1.00); POTASSIUM 4.2 mmol/L (3.5-5.1)
[2016-11-05 07:28] VITALS: BP 135/67; RESP 18
[2016-11-05] MEDS: ALBUTEROL/IPRATROPIUM (NEB) 3 ML AMP HHN SCH ×3 (08:15→20:00)
[2016-11-05] MEDS: OXYBUTYNIN (XL) 5 MG TAB PO SCH (09:08)
[2016-11-05] MEDS: DULOXETINE 30 MG CAP DR PO SCH (09:08)
[2016-11-05] MEDS: GABAPENTIN 300 MG CAP PO SCH ×2 (09:09→13:01)
[2016-11-05] MEDS: traZODone 100 MG TAB PO SCH (09:09)
[2016-11-05] MEDS: AMLODIPINE 2.5 MG TAB PO SCH (09:09)
[2016-11-05] MEDS: BENAZEPRIL 40 MG TAB PO SCH (09:09)
[2016-11-05] MEDS: FAMOTIDINE 20 MG TAB PO SCH (09:09)
[2016-11-05] MEDS: HEPARIN 5,000 UNIT/0.5 ML VIAL SC SCH (09:10)
[2016-11-05] MEDS: INSULIN GLARGINE [LANtus] 3 ML PEN SC SCH (09:11)
[2016-11-05] MEDS: INSULIN ASPART [NOVOLOG] 3 ML PEN SC SCH ×6 (09:12→17:55)
[2016-11-05] MEDS: HYDROmorphONE 1 MG/ML SYG IV PRN ×2 (09:17→13:01)
--- NOTE | 2016-11-05 09:35 | PN ---
Date/Time of Note Date/Time of Note DATE: 11/05/16 TIME: 09:33 Assessment/Plan VTE Prophylaxis VTE Prophylaxis Intervention: heparin Lines/Catheters IV Catheter Type (from Nrs): Central Line Central line still needed: Yes Urinary Cath still in place: No Assessment/Plan Chief Complaint/Hosp Course 1. 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 Status post laparoscopic, hand-assisted distal pancreatectomy and splenectomy on 10/30/2016. Continue pain control. Postoperative management as per surgery team. 2. Acute hypoxic respiratory failure. Resolved. Etiology unclear. Incentive spirometry. CT angiogram of the chest negative for any ready for any pulmonary embolism. 3. Essential hypertension. Continue antihypertensives. 4. Diabetes mellitus. Continue sliding scale insulin. Latest hemoglobin A1c 11.2. 5. Bipolar disorder. Continue mood stabilizers. 6. Peripheral neuropathy. Continue gabapentin. 7. Fibromyalgia. Continue Cymbalta. 8. Fluids, electrolytes, and nutrition. Carbohydrate controlled diet. 9. DVT prophylaxis. Subcutaneous heparin. 10. Gastrointestinal prophylaxis with histamine 2 receptor blockers. 11. Plan. Continue pain management. Continue postoperative management as per hepatobiliary surgery. Discharge the patient home once cleared by surgery. Discussed with Dr. Leonard. Problems: Subjective 24 Hr Interval Summary Free Text/Dictation Pain well controlled. Tolerating oral intake. Exam/Review of Systems Vital Signs Vitals Vital Signs Date Time Temp Pulse Resp B/P Pulse Ox O2 Delivery O2 Flow Rate FiO2 11/05/16 08:16 72 20 95 Nasal Cannula 2.0 11/05/16 07:28 98.3 135/67 11/04/16 19:31 21 Intake and Output 11/04/16 11/04/16 11/05/16 15:00 23:00 07:00 Intake Total 840 ml 440 ml Output Total 15 ml Balance 825 ml 440 ml Exam General: Adequately build 56 year-old female lying in bed in no apparent distress. HEENT: Normocephalic, atraumatic. Eyes: Anicteric sclerae, conjunctivae clear. ENT: Nasal septum midline, oral mucosa moist. Neck supple, no JVD noticed. Respiratory: Bilaterally diminished breath sounds. No use of accessory muscles of respiration. No adventitious breath sounds. Cardiovascular: S1, S2 heard. No murmurs or gallops. Abdomen:. juaquin-incisional tenderness. GALO drain in place. Bowel sounds positive in all 4 quadrants. Genitourinary: Deferred. Extremities: No cyanosis, no clubbing, no edema. Peripheral pulses palpable. Neurologic: Cranial nerves II through XII grossly intact. The patient is awake, alert, and oriented. Skin: Normal skin turgor. No skin rashes. Results Result Diagram: 11/05/16 0447 11/05/16 0450 Results 24 hrs Laboratory Tests Test 11/04/16 12:48 11/04/16 17:53 11/04/16 20:56 11/05/16 04:47 Bedside Glucose 228 H 150 128 White Blood Count 12.6 #H Red Blood Count 3.71 L Hemoglobin 11.0 L Hematocrit 33.4 L Mean Corpuscular Volume 90.0 Mean Corpuscular Hemoglobin 29.6 Mean Corpuscular Hemoglobin Concent 32.9 Red Cell Distribution Width 12.5 Platelet Count 557 #H Mean Platelet Volume 9.7 Neutrophils % 71.7 Lymphocytes % 8.5 L Monocytes % 11.2 H Eosinophils % 5.4 Basophils % 0.8 Nucleated Red Blood Cells % 0.2 H Neutrophils # (Manual) 9 H Lymphocytes # 1.1 Monocytes # 1.4 H Eosinophils # 0.7 H Basophils # 0.1 Nucleated Red Blood Cells # 0.0 Test 11/05/16 04:50 11/05/16 08:34 Sodium Level 137 Potassium Level 4.2 Chloride Level 97 Carbon Dioxide Level 29 Anion Gap 15 # Blood Urea Nitrogen 11 Creatinine 0.59 Glucose Level 154 Calcium Level 8.9 Bedside Glucose 156 Medications Medications Current Medications Diphenhydramine HCl (Benadryl) 25 mg Q4H PRN IV PRURITUS; Start 10/30/16 at 12: 00 Nalbuphine HCl (Nubain) 10 mg Q4H PRN IV PRURITUS; Start 10/30/16 at 12:00 Naloxone HCl (Narcan) 0.2 mg Q2M PRN IV FOR RESP RATE 8 OR LESS; Start at 12:00 Docusate Sodium (Colace) 100 mg BID PRN PO CONSTIPATION; Start 10/30/16 at 12: 00 Bisacodyl (Dulcolax Supp) 10 mg BID PRN NE CONSTIPATION; Start 10/30/16 at 12: 00 Sodium Biphosphate/ Sodium Phosphate (Fleet Enema) 133 ml BID PRN NE CONSTIPATION; Start 10/30/16 at 12:00 Amlodipine Besylate (Norvasc) 2.5 mg DAILY PO Last administered on 11/05/16 09 :09; Admin Dose 2.5 MG; Start 10/31/16 at 09:00 Benazepril HCl (Lotensin) 40 mg DAILY PO Last administered on 11/05/16 09:09; Admin Dose 40 MG; Start 10/31/16 at 09:00 Duloxetine HCl (Cymbalta) 60 mg DAILY PO Last administered on 11/05/16 09:08; Admin Dose 60 MG; Start 10/31/16 at 09:00 Gabapentin (Neurontin) 300 mg TID PO Last administered on 11/05/16 09:09; Admin Dose 300 MG; Start 10/30/16 at 21:00 Oxybutynin Chloride (Ditropan Xl) 5 mg DAILY PO Last administered on 11/05/16 09:08; Admin Dose 5 MG; Start 10/31/16 at 09:00 Trazodone HCl (Desyrel) 100 mg BID PO Last administered on 11/05/16 09:09; Admin Dose 100 MG; Start 10/30/16 at 21:00 Ondansetron HCl (Zofran Inj) 4 mg Q6H PRN IV NAUSEA AND/OR VOMITING Last administered on 11/01/16 02:53; Admin Dose 4 MG; Start 10/30/16 at 14:00 Acetaminophen (Tylenol Tab) 650 mg Q6H PRN PO PAIN LEVEL 1-3 OR FEVER Last administered on 11/01/16 02:46; Admin Dose 650 MG; Start 10/30/16 at 14:00 Acetaminophen (Tylenol Supp) 650 mg Q6H PRN NE PAIN LEVEL 1-3 OR FEVER; Start 10/30/16 at 14:00 Acetaminophen/ Hydrocodone Bitart ([place] (5/325)) 1 tab Q6H PRN PO MODERATE PAIN LEVEL 4-6 Last administered on 11/04/16 12:53; Admin Dose 1 TAB; Start at 14:00 Docusate Sodium (Colace) 100 mg Q12H PRN PO CONSTIPATION; Start 10/30/16 at 14: 00 Magnesium Hydroxide (Milk Of Mag) 30 ml DAILY PRN PO CONSTIPATION; Start at 14:00 Diagnostic Test (Pha) (Accu-Chek) 1 ea 02 XX ; Start 10/31/16 at 02:00 Miscellaneous Information 1 ea NOTE XX ; Start 10/30/16 at 14:30 Glucose (Glutose) 15 gm Q15M PRN PO DECREASED GLUCOSE; Start 10/30/16 at 14:30 Glucose (Glutose) 22.5 gm Q15M PRN PO DECREASED GLUCOSE; Start 10/30/16 at 14: 30 Dextrose (D50w Syringe) 25 ml Q15M PRN IV DECREASED GLUCOSE; Start 10/30/16 at 14:30 Dextrose (D50w Syringe) 50 ml Q15M PRN IV DECREASED GLUCOSE; Start 10/30/16 at 14:30 Glucagon (Glucagen) 1 mg Q15M PRN IM DECREASED GLUCOSE; Start 10/30/16 at 14:30 Glucose (Glutose) 15 gm Q15M PRN BUCCAL DECREASED GLUCOSE; Start 10/30/16 at 14 :30 Hydromorphone HCl (Dilaudid) 0.5 mg Q2 PRN IV PAIN; Start 10/30/16 at 18:00 Hydromorphone HCl (Dilaudid) 1 mg Q2 PRN IV PAIN Last administered on 09:17; Admin Dose 1 MG; Start 10/30/16 at 18:00 Insulin Glargine (Lantus) 20 unit DAILY@08 SC Last administered on 11/05/16 09 :11; Admin Dose 20 UNIT; Start 11/01/16 at 08:00 Hydromorphone HCl (Dilaudid SERVICE SUPERINTENDENT) 0 MG/HR CONTINUOUS RATE ... Q4PCA IV Last administered on 11/01/16 03:46; Admin Dose 6 MG; Start 10/31/16 at 20:30 Heparin Sodium (Porcine) (Heparin (5000 Units/0.5 ml)) 5,000 unit BID SC Last administered on 11/05/16 09:10; Admin Dose 5,000 UNIT; Start 10/31/16 at 23:30 Famotidine (Pepcid) 20 mg BID PO Last administered on 11/05/16 09:09; Admin Dose 20 MG; Start 11/02/16 at 21:00 Ketorolac Tromethamine (Toradol) 30 mg Q6H PRN IV PAIN; Start 11/02/16 at 15:30 GILDARDO KING NP Nov 05, 2016 09:34
[2016-11-05 13:53] VITALS: BP 123/60; RESP 18
--- NOTE | 2016-11-05 16:03 | PDOCDIS ---
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 Also, please call the same number in a few days to schedule an appointment for your follow up visit. Patient may remove dressings tomorrow. Showers OK starting tomorrow. No swimming , hot tub or bath for 2 weeks. No lifting more than 25 lbs for 8 weeks." OTHER ORDERS: Other Orders: "Please call [phone] if any of fever, nausea, vomiting, discharge from wound, wound redness, increase or sudden pain, blood in stool or vomit, or any other unusual signs or symptoms. Also, please call the same number in a few days to schedule an appointment for your follow up visit. Patient may remove dressings tomorrow. Showers OK starting tomorrow. No swimming , hot tub or bath for 2 weeks. No lifting more than 25 lbs for 8 weeks." ROSEMARY VELEZ M.D. Nov 05, 2016 16:03
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
[2016-11-05 19:50] VITALS: BP 123/62; RESP 18
[2016-11-05 19:50] LABS: FLUID AMYLASE 130 U/L; FLUID TYPE ABDOMINAL FLUID
== END 2016-11-05 20:42 | disposition home or self-care (01) | DRG 405 ==
LOC: REC 10-30 05:16 → MS1 10-30 13:30
PROVIDERS: ADMIT Transplant Surgery; ATTEND Transplant Surgery
PROC: 07TP4ZZ Resection of Spleen, Percutaneous Endoscopic Approach (ICD-10-PCS; 2016-10-30)
PROC: 0FBG4ZZ Excision of Pancreas, Percutaneous Endoscopic Approach (ICD-10-PCS; principal; 2016-10-30 07:30)
DX: C25.2 Malignant neoplasm of tail of pancreas (principal); J96.01 Acute respiratory failure with hypoxia; E11.42 Type 2 diabetes mellitus with diabetic polyneuropathy; E11.65 Type 2 diabetes mellitus with hyperglycemia; Z79.4 Long term (current) use of insulin; I10 Essential (primary) hypertension; F31.9 Bipolar disorder, unspecified; F43.10 Post-traumatic stress disorder, unspecified; M79.7 Fibromyalgia; Z90.49 Acquired absence of other specified parts of digestive tract; E78.5 Hyperlipidemia, unspecified; E66.9 Obesity, unspecified; Z68.35 Body mass index [BMI] 35.0-35.9, adult; F17.210 Nicotine dependence, cigarettes, uncomplicated; E11.51 Type 2 diabetes mellitus with diabetic peripheral angiopathy without gangrene
CPT/HCPCS: 36600; 71010; 71275; 80048; 80053; 80061; 82150; 82310; 82803; 82962; 83036; 83605; 83735; 83880; 84100; 84436; 84443; 84479; 84484; 85025; 85610; 85730; 86850; 86900; 86901; 87040; 88309; 93005; 93970; 94640; 94664; 97162; J1940; C9113; J1170; J1644; J1650; J1815; J2250; J2274; J2370; J2405; J2543; J2765; J2795; J3010; J3475; J3480; J7030; J7040; J7999; Q9967

== ENCOUNTER 2016-11-21 15:24 | Outpatient (CLI) | payer OTHER ==
[~2016-11-21] VITALS: Ht 157.5 cm; Wt 85.5 kg
[~2016-11-21 15:24] MED LIST changes: -ARIP400S IM; -FURO-110 PO; +HYDR-905 PO; +MELO7.5O PO; +NAPR-260 PO
[2016-11-21 15:28] VITALS: BP 168/82; PULSE 87; RESP 18; Ht 157.5 cm; Wt 85.5 kg
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
== END 2016-11-21 16:50 | disposition home or self-care (01) ==
LOC: HPC 15:24
PROVIDERS: ATTEND Transplant Surgery
DX: K86.2 Cyst of pancreas (principal); I10 Essential (primary) hypertension; M19.90 Unspecified osteoarthritis, unspecified site; M79.7 Fibromyalgia; G40.909 Epilepsy, unspecified, not intractable, without status epilepticus; R25.1 Tremor, unspecified; F43.10 Post-traumatic stress disorder, unspecified; F31.9 Bipolar disorder, unspecified; G62.9 Polyneuropathy, unspecified; E11.8 Type 2 diabetes mellitus with unspecified complications; H53.8 Other visual disturbances; Z96.659 Presence of unspecified artificial knee joint; Z87.11 Personal history of peptic ulcer disease
CPT/HCPCS: G0463

== ENCOUNTER → 2016-12-26 | Outpatient (CLI) | payer OTHER ==
[~2016-12-26] VITALS: Ht 157.5 cm; Wt 89.5 kg
[2016-12-26 10:55] VITALS: BP 174/89; PULSE 77; RESP 18; Ht 157.5 cm; Wt 89.5 kg
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
== END | disposition home or self-care (01) ==
LOC: HPC 10:55
PROVIDERS: ATTEND Transplant Surgery
DX: K86.2 Cyst of pancreas (principal); I10 Essential (primary) hypertension; E11.9 Type 2 diabetes mellitus without complications; M19.90 Unspecified osteoarthritis, unspecified site; M79.7 Fibromyalgia; G40.909 Epilepsy, unspecified, not intractable, without status epilepticus; F43.10 Post-traumatic stress disorder, unspecified; F31.9 Bipolar disorder, unspecified; G62.9 Polyneuropathy, unspecified; Z96.659 Presence of unspecified artificial knee joint

== ENCOUNTER 2018-06-04 06:05 | Day surgery (SDC) | payer OTHER ==
[~2018-06-04] VITALS: Ht 157.5 cm; Wt 97.1 kg
[~2018-06-04 06:05] MED LIST changes: +HYDR-4012 PO; -HYDR-905 PO; -NAPR-260 PO; +NAPR-985 PO; +TRA100 PO; -TRAZ100T15 PO
[2018-06-04 07:34] VITALS: BP 149/74; PULSE 72; RESP 24; Ht 157.5 cm; Wt 97.1 kg
--- NOTE | 2018-06-04 07:41 | PREAC ---
Date/Time of Note Date/Time of Note DATE: 06/04/18 TIME: 07:37 Anesthesia Eval and Record Evaluation Time Pre-Procedure Interview DATE: 06/04/18 TIME: 07:37 Age 57 Sex female NPO: 8 hrs Preoperative diagnosis Abdominal pain, + occult blood Planned procedure EGD, Colonoscopy Past Medical History Past Medical History: Includes Cardio: HTN Endo: Diabetes Pulm: Smoking Hx, COPD Musculoskeletal: Osteoarthritis Psych: Depression Surgery & Anesthesia Issues No known issue Meds Anticoagulation: No Beta Hellen within 24 hr: No Reason Beta Hellen not given: Pt. not on B-Hellen Reported Medications Hydrocodone/Acetaminophen ([place] 7.5-325 Tablet) 1 Each Tablet, 1 EACH PO, TAB 10/30/16 Naproxen* (Naprosyn*) 500 Mg Tablet, 500 MG PO BID, TAB 10/30/16 Meloxicam* (Meloxicam*) 7.5 Mg/5 Ml Oral.susp, 15 MG PO DAILY, #300 ML 10/30/16 Insulin Lispro (Humalog) 100 Unit/1 Ml Cartridge, 100 UNIT SQ BEFORE MEALS 01/04/16 Insulin Glargine* (Lantus*) 100 Unit/Ml Soln, 60 UNIT SC QHS, #1 VIAL 01/04/16 Oxybutynin Chloride* (Ditropan* XL) 5 Mg Tabsr, 5 MG PO DAILY, TAB.SA 01/04/16 Amlodipine Besylate* (Norvasc*) 2.5 Mg Tablet, 2.5 MG PO DAILY, TAB 01/04/16 Gabapentin* (Gabapentin*) 100 Mg Capsule, 300 MG PO TID, #90 CAP 01/04/16 Benazepril Hcl* (Lotensin*) 40 Mg Tablet, 40 MG PO DAILY, #30 TAB 01/04/16 Duloxetine Hcl* (Cymbalta*) 60 Mg Capsule.dr, 60 MG PO DAILY, CAP 01/04/16 Trazodone Hcl* (Trazodone Hcl*) 100 Mg Tablet, 100 MG PO BID, #60 TAB 01/04/16 Meds reviewed: Yes Allergies Coded Allergies: morphine (Verified Adverse Reaction, Intermediate, VOMITING , 10/29/16) Allergies Reviewed: Yes Labs/Studies Labs Reviewed: Reviewed by anesthesiologist test: N/A Studies: ECG Pre-procedure Exam Last vitals BP:118/56, P:74, Spo2:100%, T:98,8 Airway: Adequate mouth opening, Adequate thyromental dist Mallampati: Mallampati II Teeth: Normal Lung: Normal Heart: Normal ASA Physical Status ASA physical status: 3 Emergency: None Planned Anesthetic General/MAC: MAC Planned Pain Management Parenteral pain med Pre-operative Attestations Prior to commencing anesthesia and surgery, the patient was re-evaluated, there was verification of: *The patient's identity *The results of appropriate recent lab work and preoperative vital signs *The above evaluation not changing prior to induction *Anesthetic plan, risk benefits, alternative and complications discussed with patient/family; questions answered; patient/family understands, accepts and wishes to proceed. CHINO BLOOM MD Jun 04, 2018 07:41
[2018-06-04] MEDS ORDERED: PROPOFOL 60 ML ONE (07:43)
[2018-06-04] MEDS ORDERED: LIDOCAINE 2% (SDV) 5 ML INJ ONE (07:43)
[2018-06-04] MEDS ORDERED: LIDOCAINE 4% SOLUTION 50 ML BTL ONE (08:31)
--- NOTE | 2018-06-04 08:50 | PAC ---
Date/Time of Note Date/Time of Note DATE: 06/04/18 TIME: 08:48 Post-Anesthesia Notes Post-Anesthesia Note Last documented vital signs Vital Signs Date Temp Pulse Resp B/P (MAP) Pulse Ox O2 O2 Flow FiO2 Time Delivery Rate 06/04/18 98.0 72 24 149/74 99 Nasal 2.0 07:34 (99) Cannula Activity: WNL Respiratory function: WNL Cardiovascular function: WNL Mental status: Baseline Pain reasonably controlled: Yes Hydration appropriate: Yes Nausea/Vomiting absent: Yes Comments BP:145/67, P:74, Spo2:100%, T:98,8 CHINO BLOOM MD Jun 04, 2018 08:50
[2018-06-04 09:30] VITALS: BP 148/75; RESP 16
== END 2018-06-04 09:52 | disposition home or self-care (01) ==
LOC: GIL 06:05
PROVIDERS: ATTEND Internal Medicine Gastroenterology
DX: R19.5 Other fecal abnormalities (principal); K44.9 Diaphragmatic hernia without obstruction or gangrene; K21.9 Gastro-esophageal reflux disease without esophagitis; K64.8 Other hemorrhoids; D12.5 Benign neoplasm of sigmoid colon; I10 Essential (primary) hypertension; E11.9 Type 2 diabetes mellitus without complications; J44.9 Chronic obstructive pulmonary disease, unspecified; Z87.891 Personal history of nicotine dependence
CPT/HCPCS: 43239; 45380; 82962; 88305; Z7610

== ENCOUNTER 2018-07-19 09:30 | Inpatient (IN) | payer OTHER ==
[2018-07-18 15:50] VITALS: BMI 36.3
[~2018-07-19] VITALS: Ht 157.5 cm; Wt 98.9 kg
[2018-07-21 08:02] VITALS: BP 157/76; PULSE 85; RESP 16
[2018-07-21] MEDS ORDERED: LANT3I SC (08:07)
[2018-07-21] MEDS ORDERED: INSU100I12 SQ ×2 (08:08→08:09)
[2018-07-21] MEDS ORDERED: ALBU18HF INHALATION (08:09)
[2018-07-21] MEDS ORDERED: OMEP40CA6 PO (08:09)
[2018-07-21 08:10] VITALS: Ht 157.5 cm; Wt 98.9 kg
[2018-07-21] MEDS ORDERED: UMEC62.5 IH (08:10)
[2018-07-21] MEDS ORDERED: DULO60CA6 PO (08:11)
[2018-07-21] MEDS ORDERED: FURO40TA4 PO (08:11)
[2018-07-21] MEDS ORDERED: DOCU250C68 PO (08:12)
[2018-07-21] MEDS ORDERED: AMLO2.5T2 PO (08:12)
[2018-07-21] MEDS ORDERED: OXYB5TAB22 PO (08:12)
[2018-07-21] MEDS ORDERED: HYDR-3980 PO (08:13)
[2018-07-21] MEDS ORDERED: BENA40TA54 PO (08:13)
[2018-07-21] MEDS ORDERED: QUET50TA PO (08:14)
[2018-07-21] MEDS ORDERED: GABA100C14 PO (08:14)
--- NOTE | 2018-07-21 09:04 | PREAC ---
Date/Time of Note Date/Time of Note DATE: 07/21/18 TIME: 09:02 Anesthesia Eval and Record Evaluation Time Pre-Procedure Interview DATE: 07/21/18 TIME: 09:02 Age 57 Sex female NPO: 8 hrs Preoperative diagnosis COLON CA Planned procedure LEFT COLON RESECTION Past Medical History Past Medical History: Includes Cardio: HTN Endo: Diabetes Pulm: COPD Musculoskeletal: Osteoarthritis GI: Obesity, Other (PACREATIC TUMOR RESECTION) Heme: Anemia Surgery & Anesthesia Issues No known issue Meds Anticoagulation: No Beta Hellen within 24 hr: No Reason Beta Hellen not given: Pt. not on B-Hellen Reported Medications Gabapentin* (Gabapentin*) 100 Mg Capsule, 100 MG PO TID, #90 CAP 07/21/18 Quetiapine Fumarate* (Seroquel*) 50 Mg Tablet, 50 MG PO HS, TAB 07/21/18 Hydrocodone/Acetaminophen ([place] 10-325 Tablet) 1 Each Tablet, 1 EACH PO Q6 PRN for PAIN, TAB 07/21/18 Benazepril Hcl* (Lotensin*) 40 Mg Tablet, 40 MG PO DAILY, #30 TAB 07/21/18 Oxybutynin Chloride* (Ditropan* XL) 5 Mg Tabsr, 5 MG PO DAILY, TAB.SA 07/21/18 Amlodipine Besylate* (Norvasc*) 2.5 Mg Tablet, 2.5 MG PO DAILY, TAB 07/21/18 Docusate Sodium* (Dok*) 250 Mg Capsule, 250 MG PO BID, #60 CAP 07/21/18 Duloxetine Hcl* (Cymbalta*) 60 Mg Capsule.dr, 60 MG PO DAILY, CAP 07/21/18 Furosemide* (Furosemide*) 40 Mg Tablet, 40 MG PO DAILY, TAB 07/21/18 Umeclidinium [place] (Incruse Ellipta) 62.5 Mcg Blst.w.dev, 62.5 MCG IH DAILY 07/21/18 Albuterol Sulfate* (Ventolin HFA*) 18 Gm Hfa.aer.ad, 2 PUFF INHALATION Q6, #1 INHALER 07/21/18 Omeprazole* (Omeprazole*) 40 Mg Capsule.dr, 40 MG PO DAILY, #30 CAP 07/21/18 Insulin Lispro (Humalog Kwikpen U-100) 100 Unit/1 Ml Insuln.pen, 12 UNIT SQ SNACKS, EA 07/21/18 Insulin Lispro (Humalog Kwikpen U-100) 100 Unit/1 Ml Insuln.pen, 24 UNIT SQ AC A, EA 07/21/18 Insulin Glargine* (Lantus*) 100 Unit/Ml Soln, 75 UNIT SC QHS, #1 VIAL 07/21/18 Discontinued Reported Medications Hydrocodone/Acetaminophen ([place] 7.5-325 Tablet) 1 Each Tablet, 1 EACH PO, TAB 10/30/16 Naproxen* (Naprosyn*) 500 Mg Tablet, 500 MG PO BID, TAB 10/30/16 Meloxicam* (Meloxicam*) 7.5 Mg/5 Ml Oral.susp, 15 MG PO DAILY, #300 ML 10/30/16 Insulin Lispro (Humalog) 100 Unit/1 Ml Cartridge, 100 UNIT SQ BEFORE MEALS 01/04/16 Insulin Glargine* (Lantus*) 100 Unit/Ml Soln, 60 UNIT SC QHS, #1 VIAL 01/04/16 Oxybutynin Chloride* (Ditropan* XL) 5 Mg Tabsr, 5 MG PO DAILY, TAB.SA 01/04/16 Amlodipine Besylate* (Norvasc*) 2.5 Mg Tablet, 2.5 MG PO DAILY, TAB 01/04/16 Gabapentin* (Gabapentin*) 100 Mg Capsule, 300 MG PO TID, #90 CAP 01/04/16 Benazepril Hcl* (Lotensin*) 40 Mg Tablet, 40 MG PO DAILY, #30 TAB 01/04/16 Duloxetine Hcl* (Cymbalta*) 60 Mg Capsule.dr, 60 MG PO DAILY, CAP 01/04/16 Trazodone Hcl* (Trazodone Hcl*) 100 Mg Tablet, 100 MG PO BID, #60 TAB 01/04/16 Current Medications Polyethylene Glycol/ Electrolytes (Golytely) 1,000 ml ONCE ONCE PO ; Start 07/21/18 at 08:30; Stop 07/21/18 at 08:31; Status UNV Meds reviewed: Yes Allergies Coded Allergies: morphine (Verified Allergy, Intermediate, HIVES, VOMITTING, 07/21/18) Allergies Reviewed: Yes Labs/Studies Labs Reviewed: Reviewed by anesthesiologist test: N/A Pre-procedure Exam Last vitals Vital Signs Date Temp Pulse Resp B/P (MAP) Pulse Ox O2 O2 Flow FiO2 Time Delivery Rate 07/21/18 96.3 85 16 157/76 96 Room Air 08:02 (103) Airway: Adequate mouth opening, Adequate thyromental dist Mallampati: Mallampati II Teeth: Normal Lung: Normal Heart: Normal ASA Physical Status ASA physical status: 3 Emergency: None Planned Anesthetic General/MAC: ETT Planned Pain Management Parenteral pain med Pre-operative Attestations Prior to commencing anesthesia and surgery, the patient was re-evaluated, there was verification of: *The patient's identity *The results of appropriate recent lab work and preoperative vital signs *The above evaluation not changing prior to induction *Anesthetic plan, risk benefits, alternative and complications discussed with patient/family; questions answered; patient/family understands, accepts and wishes to proceed. PORFIRIO MANE July 21, 2018 09:04
[2018-07-21] MEDS ORDERED: PROPOFOL 0 ML ONE (09:21)
[2018-07-21] MEDS ORDERED: LIDOCAINE 2% (SDV) 5 ML INJ ONE (09:23)
[2018-07-21] MEDS ORDERED: ROCURONIUM 50 MG INJ ONE (09:23)
[2018-07-21] MEDS ORDERED: AMPICILLIN/SULB 3 GM/NS (PMX) 100 ML IVPB ONE (09:30)
[2018-07-21] MEDS ORDERED: PEG/ELECTROLYTES 4L BTL PO ONE (09:30)
[2018-07-21 12:30] VITALS: BP 141/78; PULSE 70; RESP 16
[2018-07-21] MEDS ORDERED: MAGNESIUM CITRATE 300 ML BTL PO ONE (13:30)
[2018-07-21] MEDS: MINERAL OIL 30ML CUP PO SCH ×2 (14:28→20:34)
[2018-07-21] MEDS: SOD CHLORIDE 0.9% 1,000 ML IV SCH ×2 (15:35→20:32)
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
[2018-07-21] MEDS ORDERED: HYDROCODONE/APAP (10/325) TAB PO PRN ×2 (16:30→17:00)
--- NOTE | 2018-07-21 16:31 | HP ---
Date/Time of Note Date/Time of Note DATE: 07/21/18 TIME: 16:20 Assessment/Plan VTE Prophylaxis Risk score (from [place])>0 risk: 2 SCD applied (from [facility] [place]): Yes Pharmacological prophylaxis: NA/contraindicated Pharm contraindication: surgical contra Lines/Catheters IV C[facility]ter Type (from [facility]): Peripheral IV Urinary Cath still in place: No Assessment/Plan Assessment/Plan -Colon cancer patient is admitted for colon resection however noted to have a poor prep and was admitted to telemetry with an prep reordered general surgery. -Diabetes mellitus type 2, will continue Lantus and NovoLog. -Hypertension, continue Lotensin and Norvasc. -Preserved ejection fraction of 60% status post clearance by in cardiology consultation for colon resection surgery. -COPD -Back with dependence -Bipolar depressive disorder Further recommendations based on clinical course. Plan of care discussed with Dr. Osborne. Results 24hrs Laboratory Tests Test 07/21/18 08:59 Bedside Glucose 88 HPI/ROS Admit Date/Time Admit Date/Time July 21, 2018 at 07:05 Hx of Present Illness The patient is a 57-year-old female with insulin-dependent diabetes mellitus, diabetic neuropathy, hypertension, COPD, tobacco dependence, fibromyalgia, bipolar disorder and depression, obesity. Patient underwent colonoscopy and was found to have ulcerated lesion with biopsy confirmed moderately differentiated cancer. Patient was evaluated by Dr. Hamilton and general surgery consultation and was scheduled for surgery. Patient was noted to have poor prep on admission for which surgery was canceled. Patient is admitted to medical surgical floor and will undergo prep which was ordered by surgeon. ROS 12 point review of systems negative except what mentioned in HPI PMH/Family/Social Past Medical History Per HPI Medications Current Medications Sodium Chloride 1,000 ml @ 75 mls/hr [id number] IV Last administered on 07/21/18at 15:35; Admin Dose 75 MLS/HR; Start 07/21/18 at 09:30 Mineral Oil (Mineral Oil) 50 ml TID PO Last administered on 07/21/18at 14:28; Admin Dose 50 ML; Start 07/21/18 at 13:36 Mineral Oil (Fleet Mineral Oil Enema) 133 ml BID [place] ; Start 07/21/18 at 13:30 Coded Allergies: morphine (Verified Allergy, Intermediate, HIVES, VOMITTING, 07/21/18) Past Surgical History Past Surgical Hx: other (Bilateral total knee replacement, multiple hernia surgery, status post cholecystectomy status post pancreatic cyst removal) Family History Significant Family History: other (Sister with breast and ovarian cancer, brother with penile cancer) Social History Alcohol Use: none Smoking Status: Current every day smoker (3 cigarettes/day) Drug Use: none Exam/Review of Systems Vital Signs Vitals Vital Signs Date Temp Pulse Resp B/P (MAP) Pulse Ox O2 O2 Flow FiO2 Time Delivery Rate 07/21/18 Nasal 2.0 14:54 Cannula 07/21/18 98.1 70 16 141/78 98 12:30 (99) Exam Constitutional: alert, oriented Neck: supple Respiratory: clear to auscultation Cardiovascular: nl pulses Gastrointestinal: soft, non-tender Extremities: normal pulses TONY ADLRE July 21, 2018 16:30
[2018-07-21] MEDS ORDERED: INSULIN LISPRO 24 UNIT SQ SCH (17:00)
[2018-07-21] MEDS ORDERED: GLUCOSE GEL 15 GRAM TUBE BUCCAL PRN (17:30)
[2018-07-21] MEDS ORDERED: GLUCAGON 1 MG INJ IM PRN (17:30)
[2018-07-21] MEDS ORDERED: DEXTROSE 50% 50 ML SYRINGE IV PRN ×2 (17:30)
[2018-07-21] MEDS ORDERED: GLUCOSE GEL 15 GRAM TUBE PO PRN ×2 (17:30)
[2018-07-21] MEDS: INSULIN ASPART [NOVOLOG] 3 ML PEN SC SCH ×3 (17:55→20:31)
[2018-07-21] MEDS: MINERAL OIL 133 ML ENEMA PR SCH ×2 (18:15→20:35)
[2018-07-21] MEDS: BENAZEPRIL 40 MG TAB PO SCH (18:23)
[2018-07-21 18:24] VITALS: BP 152/89; PULSE 84
[2018-07-21] MEDS ORDERED: INSULIN GLARGINE [LANTus] (100 UNITS/ML) SYG SC SCH ×2 (20:00→21:00)
[2018-07-21] MEDS: ALBUTEROL HFA 8 GM INHALER INH SCH (20:00)
[2018-07-21 20:15] VITALS: BP 148/76; PULSE 74; RESP 17
[2018-07-21] MEDS: DOCUSATE SODIUM 250 MG CAP PO SCH (20:31)
[2018-07-21] MEDS: GABAPENTIN 100 MG CAP PO SCH (20:31)
[2018-07-21] MEDS: QUETIAPINE 25 MG TAB PO SCH (20:32)
[2018-07-21] MEDS ORDERED: GABAPENTIN 100 MG CAP PO SCH (21:00)
[2018-07-21] MEDS ORDERED: QUETIAPINE 25 MG TAB PO SCH (21:00)
[2018-07-22] MEDS: ALBUTEROL HFA 8 GM INHALER INH SCH ×4 (02:00→20:57)
[2018-07-22 02:15] VITALS: BP 124/65; PULSE 69; RESP 17
[2018-07-22] MEDS: ONDANSETRON 4 MG INJ IV PRN ×2 (02:17→06:41)
[2018-07-22] MEDS: PANTOPRAZOLE (EC) 40 MG TAB PO SCH (06:41)
[2018-07-22] MEDS: SOD CHLORIDE 0.9% 1,000 ML IV SCH ×2 (06:45→23:30)
[2018-07-22 07:51] VITALS: BP 121/62; PULSE 72; RESP 18
[2018-07-22] MEDS ORDERED: AMLODIPINE 2.5 MG TAB PO SCH (09:00)
[2018-07-22] MEDS ORDERED: DULOXETINE 30 MG CAP DR PO SCH (09:00)
[2018-07-22] MEDS ORDERED: BENAZEPRIL 40 MG TAB PO SCH (09:00)
[2018-07-22] MEDS ORDERED: OXYBUTYNIN (XL) 5 MG TAB PO SCH (09:00)
[2018-07-22] MEDS ORDERED: NON-FORMULARY/PATIENT OWN MED (Omeprazole* 40 MG) PO SCH (09:00)
[2018-07-22] MEDS: MINERAL OIL 30ML CUP PO SCH ×3 (09:00→20:58)
[2018-07-22] MEDS: INSULIN ASPART [NOVOLOG] 3 ML PEN SC SCH ×7 (09:17→21:00)
[2018-07-22] MEDS: DULOXETINE 30 MG CAP DR PO SCH (09:19)
[2018-07-22] MEDS: DOCUSATE SODIUM 250 MG CAP PO SCH ×2 (09:19→20:57)
[2018-07-22] MEDS: GABAPENTIN 100 MG CAP PO SCH ×3 (09:20→20:57)
[2018-07-22] MEDS: OXYBUTYNIN (XL) 5 MG TAB PO SCH (09:20)
[2018-07-22] MEDS: BENAZEPRIL 40 MG TAB PO SCH (09:20)
[2018-07-22] MEDS: AMLODIPINE 2.5 MG TAB PO SCH (09:21)
[2018-07-22] MEDS: FUROSEMIDE 40 MG TAB PO SCH (09:21)
[2018-07-22] MEDS: MINERAL OIL 133 ML ENEMA PR SCH ×2 (12:41→22:34)
[2018-07-22] MEDS: METOCLOPRAMIDE 10 MG INJ IV SCH ×3 (12:41→23:29)
[2018-07-22] MEDS ORDERED: PEG/ELECTROLYTES 4L BTL PO ONE (14:00)
[2018-07-22 15:00] VITALS: BP 129/64; PULSE 88; RESP 19
[2018-07-22] MEDS: TIOTROPIUM 18 MCG CAPSULE INHA DEV INH SCH (17:30)
--- NOTE | 2018-07-22 19:13 | PN ---
Date/Time of Note Date/Time of Note DATE: 07/22/18 TIME: 19:05 Assessment/Plan VTE Prophylaxis Risk score (from [facility] [place])>0 risk: 3 SCD applied (from [facility] [place]): Yes Pharmacological prophylaxis: NA/contraindicated Pharm contraindication: surgical contra Lines/Catheters IV Catheter Type (from [facility]): Peripheral IV Urinary Cath still in place: No Assessment/Plan Hospital Course Patient remains hemodynamically stable, continue to undergo bowel preparation for colon surgery, patient is currently on a liquid diet with poor appetite and episode of hypoglycemia. Encourage p.o. intake. Assessment/Plan -Colon cancer, plan for colon resection after adequate preparation. -Diabetes mellitus type 2, will continue Lantus and NovoLog. -Hypertension, continue Lotensin and Norvasc. -Preserved ejection fraction of 60% status post clearance by in card iology consultation for colon resection surgery. -COPD -Bipolar depressive disorder Further recommendations based on clinical course. Plan of care discussed with Dr. Osborne. Result Diagram: 07/22/18 0454 07/22/18 0454 Results 24hrs Laboratory Tests Test 07/21/18 20:30 07/22/18 04:54 07/22/18 08:07 07/22/18 09:13 Bedside Glucose 76 61 L White Blood Count 9.0 # Red Blood Count 4.60 # Hemoglobin 13.7 # Hematocrit 42.6 # Mean Corpuscular 92.6 Volume Mean Corpuscular 29.8 Hemoglobin Mean Corpuscular 32.2 Hemoglobin Concent Red Cell Distribution 13.2 Width Platelet Count 500 H Mean Platelet Volume 9.9 Immature Granulocytes 0.300 % Neutrophils % 65.6 Lymphocytes % 23.4 Monocytes % 7.3 Eosinophils % 2.5 Basophils % 0.9 Nucleated Red Blood 0.0 Cells % Immature Granulocytes 0.030 # Neutrophils # 5.9 Lymphocytes # 2.1 Monocytes # 0.7 Eosinophils # 0.2 Basophils # 0.1 Nucleated Red Blood 0.0 Cells # Prothrombin Time 13.1 Prothrombin Time 1.0 Ratio INR International 0.98 Normalized Ratio Activated 36.7 H Partial Thromboplast Time Sodium Level 142 Potassium Level 4.6 Chloride Level 108 Carbon Dioxide Level 28 Anion Gap 6 Blood Urea Nitrogen 9 Creatinine 0.65 Est Glomerular > 60 Filtrat Rate mL/min Glucose Level 67 L Hemoglobin A1c 8.1 H Calcium Level 9.3 Total Bilirubin 0.4 Direct Bilirubin 0.00 Indirect Bilirubin 0.4 Aspartate Amino 20 Transf (AST/SGOT) Alanine 15 Aminotransferase (ALT /SGPT) Alkaline Phosphatase 118 Total Protein 7.2 Albumin 3.6 Globulin 3.60 H Albumin/Globulin 1.00 Ratio Lab Scanned Report REFERENCE LAB Test 07/22/18 09:30 07/22/18 09:48 07/22/18 12:43 07/22/18 17:49 Bedside Glucose 87 114 82 103 Exam/Review of Systems Exam Vitals Vital Signs Date Temp Pulse Resp B/P (MAP) Pulse Ox O2 O2 Flow FiO2 Time Delivery Rate 07/22/18 98.4 88 19 129/64 99 15:00 (85) 07/22/18 Nasal 2.0 09:20 Cannula Intake and Output 07/21/18 07/21/18 07/22/18 1515:00 23:00 07:00 IntakeIntake Total 480 ml 425 ml 775 ml OutputOutput Total 550 ml 250 ml BalanceBalance 480 ml -125 ml 525 ml Exam Constitutional: alert, oriented Neck: supple Respiratory: clear to auscultation Cardiovascular: nl pulses Gastrointestinal: soft, non-tender Extremities: normal pulses Results Results 24hrs Laboratory Tests Test 07/21/18 20:30 07/22/18 04:54 07/22/18 08:07 07/22/18 09:13 Bedside Glucose 76 61 L White Blood Count 9.0 # Red Blood Count 4.60 # Hemoglobin 13.7 # Hematocrit 42.6 # Mean Corpuscular 92.6 Volume Mean Corpuscular 29.8 Hemoglobin Mean Corpuscular 32.2 Hemoglobin Concent Red Cell Distribution 13.2 Width Platelet Count 500 H Mean Platelet Volume 9.9 Immature Granulocytes 0.300 % Neutrophils % 65.6 Lymphocytes % 23.4 Monocytes % 7.3 Eosinophils % 2.5 Basophils % 0.9 Nucleated Red Blood 0.0 Cells % Immature Granulocytes 0.030 # Neutrophils # 5.9 Lymphocytes # 2.1 Monocytes # 0.7 Eosinophils # 0.2 Basophils # 0.1 Nucleated Red Blood 0.0 Cells # Prothrombin Time 13.1 Prothrombin Time 1.0 Ratio INR International 0.98 Normalized Ratio Activated 36.7 H Partial Thromboplast Time Sodium Level 142 Potassium Level 4.6 Chloride Level 108 Carbon Dioxide Level 28 Anion Gap 6 Blood Urea Nitrogen 9 Creatinine 0.65 Est Glomerular > 60 Filtrat Rate mL/min Glucose Level 67 L Hemoglobin A1c 8.1 H Calcium Level 9.3 Total Bilirubin 0.4 Direct Bilirubin 0.00 Indirect Bilirubin 0.4 Aspartate Amino 20 Transf (AST/SGOT) Alanine 15 Aminotransferase (ALT /SGPT) Alkaline Phosphatase 118 Total Protein 7.2 Albumin 3.6 Globulin 3.60 H Albumin/Globulin 1.00 Ratio Lab Scanned Report REFERENCE LAB Test 07/22/18 09:30 07/22/18 09:48 07/22/18 12:43 07/22/18 17:49 Bedside Glucose 87 114 82 103 Medications Medication Current Medications Sodium Chloride 1,000 ml @ 75 mls/hr [id number] IV Last administered on 07/22/18 06:45; Admin Dose 75 MLS/HR; Start 07/21/18 at 09:30 Mineral Oil (Mineral Oil) 50 ml TID PO Last administered on 07/22/18 12:40; Admin Dose 50 ML; Start 07/21/18 at 13:36 Mineral Oil (Fleet Mineral Oil Enema) 133 ml BID [place] Last administered on 12:41; Admin Dose 133 ML; Start 07/21/18 at 13:30 Tiotropium [place] (Spiriva) 1 inh DAILY INH ; Start 07/22/18 at 17:30 Albuterol (Ventolin Hfa) 2 puff Q6H RESP THERAPY INH Last administered on 07/22/18 09:26; Admin Dose 2 PUFF; Start 07/21/18 at 20:00 Amlodipine Besylate (Norvasc) 2.5 mg DAILY PO Last administered on 07/22/18 09:21; Admin Dose 2.5 MG; Start 07/22/18 at 09:00 Benazepril HCl (Lotensin) 40 mg DAILY PO Last administered on 07/22/18 09:20; Admin Dose 40 MG; Start 07/21/18 at 17:00 Docusate Sodium (Colace) 250 mg BID PO Last administered on 07/22/18 09:19; Admin Dose 250 MG; Start 07/21/18 at 21:00 Duloxetine HCl (Cymbalta) 60 mg DAILY PO Last administered on 07/22/18 09:19; Admin Dose 60 MG; Start 07/22/18 at 09:00 Furosemide (Lasix) 40 mg DAILY PO Last administered on 07/22/18at 09:21; Admin Dose 40 MG; Start 07/22/18 at 09:00 Gabapentin (Neurontin) 100 mg TID PO Last administered on 07/22/18at 12:41; Admin Dose 100 MG; Start 07/21/18 at 21:00 Acetaminophen/ Hydrocodone Bitart ([place] (10/325)) 1 tab Q6H PRN PO PAIN; Start 07/21/18 at 17:00 Oxybutynin Chloride (Ditropan Xl) 5 mg DAILY PO Last administered on 07/22/18at 09:20; Admin Dose 5 MG; Start 07/22/18 at 09:00 Quetiapine Fumarate (Seroquel) 50 mg HS PO Last administered on 07/21/18at 20:32; Admin Dose 50 MG; Start 07/21/18 at 21:00 Pantoprazole (Protonix Tab) 40 mg DAILY@06 PO Last administered on 07/22/18at 0 6:41; Admin Dose 40 MG; Start 07/22/18 at 06:00 Insulin Glargine (Lantus) 30 units DAILY@2000 SC ; Start 07/21/18 at 20:00 Insulin Aspart (Novolog Insulin Pen) 8 unit WITH MEALS SC ; Start 07/21/18 at 1 7:55 Insulin Aspart (Novolog Insulin Pen) NOVOLOG *MILD* ALGORITHM WITH MEALS BEDTIME SC ; Start 07/21/18 at 17:55 Miscellaneous Information 1 ea NOTE XX ; Start 07/21/18 at 17:30 Glucose (Glutose) 15 gm Q15M PRN PO DECREASED GLUCOSE; Start 07/21/18 at 17:30 Glucose (Glutose) 22.5 gm Q15M PRN PO DECREASED GLUCOSE; Start 07/21/18 at 17:30 Dextrose (D50w Syringe) 25 ml Q15M PRN IV DECREASED GLUCOSE; Start 07/21/18 at 17:30 Dextrose (D50w Syringe) 50 ml Q15M PRN IV DECREASED GLUCOSE; Start 07/21/18 at 17:30 Glucagon (Glucagen) 1 mg Q15M PRN IM DECREASED GLUCOSE; Start 07/21/18 at 17:30 Glucose (Glutose) 15 gm Q15M PRN BUCCAL DECREASED GLUCOSE; Start 07/21/18 at 17:30 Ondansetron HCl (Zofran Inj) 4 mg Q4H PRN IV NAUSEA AND/OR VOMITING Last administered on 07/22/18at 06:41; Admin Dose 4 MG; Start 07/21/18 at 21:00 Metoclopramide HCl (Reglan) 10 mg Q6 IV Last administered on 07/22/18at 18:09; Admin Dose 10 MG; Start 07/22/18 at 12:00 TONY ADLER July 22, 2018 19:13
[2018-07-22 20:26] VITALS: BP 115/58; PULSE 68; RESP 18
[2018-07-22] MEDS: QUETIAPINE 25 MG TAB PO SCH (20:57)
[2018-07-23] MEDS: SOD CHLORIDE 0.9% 1,000 ML IV SCH ×2 (01:30→08:58)
[2018-07-23 01:45] VITALS: BP 118/59; PULSE 64; RESP 18
[2018-07-23] MEDS: ALBUTEROL HFA 8 GM INHALER INH SCH ×4 (01:46→22:10)
[2018-07-23] MEDS: PANTOPRAZOLE (EC) 40 MG TAB PO SCH (05:03)
[2018-07-23] MEDS: METOCLOPRAMIDE 10 MG INJ IV SCH ×3 (05:03→18:45)
[2018-07-23] MEDS: INSULIN ASPART [NOVOLOG] 3 ML PEN SC SCH ×7 (07:50→21:00)
[2018-07-23 08:31] VITALS: BP 120/58; PULSE 101; RESP 18
[2018-07-23] MEDS: OXYBUTYNIN (XL) 5 MG TAB PO SCH (08:44)
[2018-07-23] MEDS: DULOXETINE 30 MG CAP DR PO SCH (08:44)
[2018-07-23] MEDS: AMLODIPINE 2.5 MG TAB PO SCH (08:46)
[2018-07-23] MEDS: GABAPENTIN 100 MG CAP PO SCH ×3 (08:46→21:06)
[2018-07-23] MEDS: DOCUSATE SODIUM 250 MG CAP PO SCH ×2 (08:46→22:08)
[2018-07-23] MEDS: BENAZEPRIL 40 MG TAB PO SCH (08:46)
[2018-07-23] MEDS: FUROSEMIDE 40 MG TAB PO SCH (08:47)
[2018-07-23] MEDS: MINERAL OIL 30ML CUP PO SCH ×3 (08:48→22:12)
[2018-07-23] MEDS: TIOTROPIUM 18 MCG CAPSULE INHA DEV INH SCH (09:00)
[2018-07-23] MEDS ORDERED: MAGNESIUM CITRATE 300 ML BTL PO SCH (11:00)
[2018-07-23] MEDS: MINERAL OIL 133 ML ENEMA PR SCH ×2 (11:51→22:11)
[2018-07-23] MEDS ORDERED: BISACODYL (EC) 5 MG TAB PO ONE ×2 (12:10→15:00)
[2018-07-23] MEDS ORDERED: MAGNESIUM CITRATE 300 ML BTL PO ONE (13:30)
[2018-07-23 14:00] VITALS: BP 114/60; PULSE 78; RESP 18
--- NOTE | 2018-07-23 14:20 | PN ---
DATE: 07/23/2018 SUBJECTIVE: States that she cannot take the laxatives and bowel bladder cleaner because she got nausea and s he believes they do not work on her. OBJECTIVE: GENERAL: Awake, alert, oriented, lying down in the bed, in no acute distress. VITAL SIGNS: Temperature maximum 98.7, heart rate of 64, 68, 101; respirations 18, blood pressure 11 8/59, saturation 94% on 2 liters nasal cannula. HEART: Regular. LUNGS: Clear. ABDOMEN: Soft, protruded with fat. LABORATORY DATA: INR 0.98, normal. Chemistry: Today sodium, potassium, BUN, creatinine are normal. Hematology is not done today, but yesterday hemoglobin is 13.7, hematocrit 42.6, platelet count 500 . We are going to repeat it tomorrow. ASSESSMENT AND PLAN: This is a 57-year-old female who was found to have cancer of the left colon. S he was scheduled as an elective case through the outpatient, but [facility], complete stool, so apparently she had not taken the bowel prep for this reason considering also the fact that the patient has had distal pancreatectomy and splenectomy coup le of years ago, so the patient was admitted to make sure that she can get a bowel prep before operat ion and the patient is rescheduled for operation tomorrow, . 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 Today, we are going to give Dulcolax and then magnesium citrate and later on, w e are going to give GoLYTELY 1 gallon. Dictated By: LEODAN TREJO MD PS/NTS Conf#: [id number] DID#: [id number] CC: MARJORIE BONNER MD; DIPIKA ADAMS MD;*End*
--- NOTE | 2018-07-23 15:07 | PN ---
Date/Time of Note Date/Time of Note DATE: 07/23/18 TIME: 15:04 Assessment/Plan VTE Prophylaxis Risk score (from [place])>0 risk: 4 SCD applied (from [place]): Yes Pharmacological prophylaxis: NA/contraindicated Pharm contraindication: surgical contra Lines/Catheters IV Catheter Type (from [facility]): Peripheral IV Urinary Cath still in place: No Assessment/Plan Hospital Course Patient is undergoing bowel prep for colon surgery tomorrow. Assessment/Plan -Colon cancer, plan for colon resection after adequate preparation. -Diabetes mellitus type 2, will continue Lantus and NovoLog. -Hypertension, continue Lotensin and Norvasc. -Preserved ejection fraction of 60% status post clearance by in cardiology consultation for colon resection surgery. -COPD -Bipolar depressive disorder Further recommendations based on clinical course. Plan of care discussed with Dr. Osborne. Result Diagram: 07/22/18 0454 07/23/18 0439 Results 24hrs Laboratory Tests Test 07/22/18 17:49 07/22/18 20:56 07/23/18 04:39 07/23/18 08:41 Bedside Glucose 103 99 86 Sodium Level 140 Potassium Level 4.4 Chloride Level 108 Carbon Dioxide Level 27 Anion Gap 5 Blood Urea Nitrogen 9 Creatinine 0.68 Est Glomerular Filtrat > 60 Rate mL/min Glucose Level 89 Calcium Level 8.8 Test 07/23/18 13:02 Bedside Glucose 81 Exam/Review of Systems Exam Vitals Vital Signs Date Temp Pulse Resp B/P (MAP) Pulse Ox O2 O2 Flow FiO2 Time Delivery Rate 07/23/18 98.7 101 18 120/58 97 08:31 (78) 07/22/18 Nasal 2.0 20:10 Cannula Intake and Output 07/22/18 07/22/18 07/23/18 1414:59 22:59 06:59 IntakeIntake Total 480 ml 1505 ml 500 ml BalanceBalance 480 ml 1505 ml 500 ml Exam Constitutional: alert, oriented Neck: supple Respiratory: clear to auscultation Cardiovascular: nl pulses Gastrointestinal: soft, non-tender Extremities: normal pulses Results Results 24hrs Laboratory Tests Test 07/22/18 17:49 07/22/18 20:56 07/23/18 04:39 07/23/18 08:41 Bedside Glucose 103 99 86 Sodium Level 140 Potassium Level 4.4 Chloride Level 108 Carbon Dioxide Level 27 Anion Gap 5 Blood Urea Nitrogen 9 Creatinine 0.68 Est Glomerular Filtrat > 60 Rate mL/min Glucose Level 89 Calcium Level 8.8 Test 07/23/18 13:02 Bedside Glucose 81 Medications Medication Current Medications Sodium Chloride 1,000 ml @ 75 mls/hr [id number] IV Last administered on 07/23/18 08:58; Admin Dose 75 MLS/HR; Start 07/21/18 at 09:30 Mineral Oil (Mineral Oil) 50 ml TID PO Last administered on 07/23/18 08:48; Admin Dose 50 ML; Start 07/21/18 at 13:36 Mineral Oil (Fleet Mineral Oil Enema) 133 ml BID [place] Last administered on 07/23/18 11:51; Admin Dose 133 ML; Start 07/21/18 at 13:30 Tiotropium [place] (Spiriva) 1 inh DAILY INH Last administered on 07/23/18 09:00; Admin Dose 1 INH; Start 07/22/18 at 17:30 Albuterol (Ventolin Hfa) 2 puff Q6H RESP THERAPY INH Last administered on 07/23/18 14:37; Admin Dose 2 PUFF; Start 07/21/18 at 20:00 Amlodipine Besylate (Norvasc) 2.5 mg DAILY PO Last administered on 07/23/18 08:46; Admin Dose 2.5 MG; Start 07/22/18 at 09:00 Benazepril HCl (Lotensin) 40 mg DAILY PO Last administered on 07/23/18 08:46; Admin Dose 40 MG; Start 07/21/18 at 17:00 Docusate Sodium (Colace) 250 mg BID PO Last administered on 07/23/18 08:46; Admin Dose 250 MG; Start 07/21/18 at 21:00 Duloxetine HCl (Cymbalta) 60 mg DAILY PO Last administered on 07/23/18 08:44; Admin Dose 60 MG; Start 07/22/18 at 09:00 Furosemide (Lasix) 40 mg DAILY PO Last administered on 07/23/18 08:47; Admin Dose 40 MG; Start 07/22/18 at 09:00 Gabapentin (Neurontin) 100 mg TID PO Last administered on 07/23/18 13:07; Admin Dose 100 MG; Start 07/21/18 at 21:00 Acetaminophen/ Hydrocodone Bitart ([place] (10/325)) 1 tab Q6H PRN PO PAIN; Start 07/21/18 at 17:00 Oxybutynin Chloride (Ditropan Xl) 5 mg DAILY PO Last administered on 07/23/18 08:44; Admin Dose 5 MG; Start 07/22/18 at 09:00 Quetiapine Fumarate (Seroquel) 50 mg HS PO Last administered on 07/22/18at 20:57; Admin Dose 50 MG; Start 07/21/18 at 21:00 Pantoprazole (Protonix Tab) 40 mg DAILY@06 PO Last administered on 07/23/18 05:03; Admin Dose 40 MG; Start 07/22/18 at 06:00 Insulin Aspart (Novolog Insulin Pen) NOVOLOG *MILD* ALGORITHM WITH MEALS BEDTIME SC ; Start 07/21/18 at 17:55 Miscellaneous Information 1 ea NOTE XX ; Start 07/21/18 at 17:30 Glucose (Glutose) 15 gm Q15M PRN PO DECREASED GLUCOSE; Start 07/21/18 at 17:30 Glucose (Glutose) 22.5 gm Q15M PRN PO DECREASED GLUCOSE; Start 07/21/18 at 17:30 Dextrose (D50w Syringe) 25 ml Q15M PRN IV DECREASED GLUCOSE; Start 07/21/18 at 17:30 Dextrose (D50w Syringe) 50 ml Q15M PRN IV DECREASED GLUCOSE; Start 07/21/18 at 17:30 Glucagon (Glucagen) 1 mg Q15M PRN IM DECREASED GLUCOSE; Start 07/21/18 at 17:30 Glucose (Glutose) 15 gm Q15M PRN BUCCAL DECREASED GLUCOSE; Start 07/21/18 at 17:30 Ondansetron HCl (Zofran Inj) 4 mg Q4H PRN IV NAUSEA AND/OR VOMITING Last administered on 07/22/18 06:41; Admin Dose 4 MG; Start 07/21/18 at 21:00 Metoclopramide HCl (Reglan) 10 mg Q6 IV Last administered on 07/23/18at 12:44; Admin Dose 10 MG; Start 07/22/18 at 12:00 Insulin Aspart (Novolog Insulin Pen) 5 unit WITH MEALS SC Last administered on 5/8/19at 08:53; Admin Dose 5 UNIT; Start 07/23/18 at 07:50 Insulin Glargine (Lantus) 20 units DAILY@2000 SC ; Start 07/23/18 at 20:00 Magnesium Citrate (Citroma) 300 ml NOW PO ; Start 07/23/18 at 11:00; Stop 07/23/18 at 16:00 Polyethylene Glycol/ Electrolytes (Golytely) 4,000 ml ONCE ONCE PO ; Start 07/23/18 at 17:30; Stop 07/23/18 at 17:31 Piperacillin Sod/ Tazobactam Sod 100 ml @ 200 mls/hr ONCE ONCE IVPB ; Start 07/24/18 at 08:00; Stop 07/24/18 at 08:29 TONY ADLER July 23, 2018 15:07
--- NOTE | 2018-07-23 17:33 | PSY ---
Date/Time of Note Date/Time of Note DATE: 07/23/18 TIME: 17:27 Psychiatric Subjective Eval Consent Pt consented to telemedicine: No Subjective Evaluation Patient location: inpatient History of present illness Patient is a 57-year-old female with underlying medical problem of bowel well obstruction, admitted for left colon resection for the cancer of left colon. A [id number] evaluation, patient is very irritable, she is very upset states the medication for her bowel prep is not working they wanted somebody to listen to her she denies feeling hopeless, states she is just frustrated and wants to be heard. Patient denies suicidal ideation, discussed risk and benefits of all her medication and contracted for safety.,and she verbalized understanding. Patient is very high functional, was able to tell interviewer that she takes Aristada the long-acting injectable once a month. Her last dose was July 09 and denies doses August 08. Past psychiatric history Long history of mental illness, with bipolar disorder. Hospitalization: other Allergies: Coded Allergies: morphine (Verified Allergy, Intermediate, HIVES, VOMITTING, 07/21/18) Substance Abuse Substance abuse history: No Prior substance abuse treatmen: No Social History Marital status: other DPA/Conservatorship: No Psychiatric Objective Eval Review of Systems: Review of Systems: Not Applicable Physical Examination: Physical Examination: Not Applicable Mental Status Examination: Appearance: Groomed Eye Contact: Fair Psychomotor Activity: Agitated Behavior: Cooperative, Agitated Speech: Clear AFFECT: Libile Mood: Anxious Though Process: Linear Thought Content: Hallucinations Orientation: x4 Cognition: Alert Insight: Intact Judgement: Intact Attention Span: Distractible Laboratory Results Laboratory Tests Test 07/21/18 20:30 07/22/18 04:54 07/22/18 08:07 07/22/18 09:13 Bedside Glucose 76 mg/dL 61 mg/dL White Blood Count 9.0 10^3/ul Red Blood Count 4.60 10^6/ul Hemoglobin 13.7 g/dl Hematocrit 42.6 % Mean Corpuscular 92.6 fl Volume Mean Corpuscular 29.8 pg Hemoglobin Mean Corpuscular 32.2 g/dl Hemoglobin Concen t Red Cell 13.2 % Distribution Width Platelet Count 500 10^3/UL Mean Platelet 9.9 fl Volume Immature 0.300 % Granulocytes % Neutrophils % 65.6 % Lymphocytes % 23.4 % Monocytes % 7.3 % Eosinophils % 2.5 % Basophils % 0.9 % Nucleated Red 0.0 /100WBC Blood Cells % Immature 0.030 10^3/ul Granulocytes # Neutrophils # 5.9 10^3/ul Lymphocytes # 2.1 10^3/ul Monocytes # 0.7 10^3/ul Eosinophils # 0.2 10^3/ul Basophils # 0.1 10^3/ul Nucleated Red 0.0 10^3/ul Blood Cells # Prothrombin Time 13.1 Sec Prothrombin Time 1.0 Ratio INR International 0.98 Normalized Ratio Activated 36.7 Sec Partial Thrombopl ast Time Sodium Level 142 mmol/L Potassium Level 4.6 mmol/L Chloride Level 108 mmol/L Carbon Dioxide 28 mmol/L Level Anion Gap 6 Blood Urea 9 mg/dl Nitrogen Creatinine 0.65 mg/dl Est Glomerular > 60 mL/min Filtrat Rate mL/min Glucose Level 67 mg/dl Hemoglobin A1c 8.1 % Calcium Level 9.3 mg/dl Total Bilirubin 0.4 mg/dl Direct Bilirubin 0.00 mg/dl Indirect 0.4 mg/dl Bilirubin Aspartate Amino 20 IU/L Transf (AST/SGOT) Alanine 15 IU/L Aminotransferase (ALT/SGPT) Alkaline 118 IU/L Phosphatase Total Protein 7.2 g/dl Albumin 3.6 g/dl Globulin 3.60 g/dl Albumin/Globulin 1.00 Ratio Lab Scanned REFERENCE Report LAB [id number] Test 07/22/18 09:30 07/22/18 09:48 07/22/18 12:43 07/22/18 17:49 Bedside Glucose 87 mg/dL 114 mg/dL 82 mg/dL 103 mg/dL Test 07/22/18 20:56 07/23/18 04:39 07/23/18 08:41 07/23/18 13:02 Bedside Glucose 99 mg/dL 86 mg/dL 81 mg/dL Sodium Level 140 mmol/L Potassium Level 4.4 mmol/L Chloride Level 108 mmol/L Carbon Dioxide 27 mmol/L Level Anion Gap 5 Blood Urea 9 mg/dl Nitrogen Creatinine 0.68 mg/dl Est Glomerular > 60 mL/min Filtrat Rate mL/min Glucose Level 89 mg/dl Calcium Level 8.8 mg/dl Assessment and Plan Assessment/Diagnosis Diagnosis Schizoaffective disorder bipolar type Recommendation/Plan Medication Management Patient is on Aristada the monthly medication, She is also on Seroquel 100 mg at bedtime, Cymbalta 60 mg daily Multiple antipsychotics: No Discharge Disposition: Other Legal Status: Voluntary (Does not meets criteria for 5150 hold) GUILLERMINA QUINTANA NP July 23, 2018 17:33
[2018-07-23] MEDS: PEG/ELECTROLYTES 4L BTL PO ONE ×2 (17:47→17:56)
[2018-07-23 19:20] VITALS: BP 138/61; PULSE 71; RESP 18
[2018-07-23 20:47] VITALS: BP 133/67; PULSE 66; RESP 19
[2018-07-23] MEDS: INSULIN GLARGINE [LANTus] (100 UNITS/ML) SYG SC SCH (21:09)
[2018-07-23] MEDS: QUETIAPINE 100 MG TAB PO SCH (22:08)
[2018-07-24] MEDS: METOCLOPRAMIDE 10 MG INJ IV SCH ×4 (00:56→18:00)
[2018-07-24 02:00] VITALS: BP 117/66; PULSE 69; RESP 19
[2018-07-24] MEDS: SOD CHLORIDE 0.9% 1,000 ML IV SCH ×3 (02:00→18:08)
[2018-07-24] MEDS: ALBUTEROL HFA 8 GM INHALER INH SCH ×4 (02:00→21:25)
[2018-07-24] MEDS: PANTOPRAZOLE (EC) 40 MG TAB PO SCH (06:00)
[2018-07-24] MEDS ORDERED: PIPER-TAZO 3.375 GM IV (PMX) 100 ML IVPB ONE (08:00)
[2018-07-24] MEDS: INSULIN ASPART [NOVOLOG] 3 ML PEN SC SCH ×7 (08:00→21:00)
[2018-07-24] MEDS: BENAZEPRIL 40 MG TAB PO SCH (08:13)
[2018-07-24] MEDS: DOCUSATE SODIUM 250 MG CAP PO SCH ×2 (08:13→21:34)
[2018-07-24] MEDS: DULOXETINE 30 MG CAP DR PO SCH (08:13)
[2018-07-24] MEDS: FUROSEMIDE 40 MG TAB PO SCH (08:13)
[2018-07-24] MEDS: GABAPENTIN 100 MG CAP PO SCH ×3 (08:14→22:09)
[2018-07-24] MEDS: AMLODIPINE 2.5 MG TAB PO SCH (08:14)
[2018-07-24] MEDS: MINERAL OIL 133 ML ENEMA PR SCH ×2 (08:14→21:00)
[2018-07-24] MEDS: MINERAL OIL 30ML CUP PO SCH ×3 (08:14→21:00)
[2018-07-24 08:33] VITALS: BP 119/61; PULSE 67; RESP 19
[2018-07-24] MEDS: TIOTROPIUM 18 MCG CAPSULE INHA DEV INH SCH (08:40)
[2018-07-24] MEDS: OXYBUTYNIN (XL) 5 MG TAB PO SCH (08:48)
[2018-07-24] MEDS ORDERED: REGADENOSON 0.4 MG/5 ML SYG ONE (13:24)
--- NOTE | 2018-07-24 14:09 | CONS ---
DATE OF ADMISSION: 07/21/2018 DATE OF CONSULTATION: 07/24/2018 TYPE OF CONSULTATION: Cardiology. REASON FOR CONSULTATION: Preoperative evaluation. REQUESTING PHYSICIAN: Sher Trejo MD, from the surgical department and Dipika Adams MD. HISTORY OF PRESENT ILLNESS: Ms. 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 The patient was evaluated by Dr. Hamilton and is to undergo surgery for resection of mass. The patient's surgery has been cancelled tod ay as preoperative evaluation with positive stress test at the request of patient's anesthesiologist. The patient has been seen by ____ her primary planimeter operator and was noted to have a preserved EF at that time. PAST MEDICAL HISTORY: As above in HPI. MEDICATIONS CURRENTLY IN HOSPITAL: 1. Seroquel. 2. Lantus insulin. 3. Spiriva. 4. Reglan. 5. Norvasc 2.5 mg daily. 6. Cymbalta. 7. Lasix 20 mg daily. 8. Ditropan. 9. Protonix. 10. Colace. 11. Gabapentin. 12. Zofran. 13. Albuterol. 14. Benazepril 40 mg daily. 15. Wolverine. 16. Enemas. 17. IV fluid hydration at 75 mL an hour. ALLERGIES: MORPHINE. SOCIAL HISTORY: No current tobacco, EtOH or illicit drug use. FAMILY HISTORY: No history of sudden cardiac or early CAD. REVIEW OF SYSTEMS: As above in HPI. CONSTITUTIONAL: No fevers, chills. PULMONARY: No current shortness of breath. CARDIOVASCULAR: No current chest pain. GASTROINTESTINAL: Colon cancer. No abdominal pain. GENITOURINARY: No hematuria. MUSCULOSKELETAL: Degenerative joint disease. PSYCHIATRIC: Positive psychiatric history. NEUROLOGIC: No documented history of CVA. ENDOCRINE: Diabetes mellitus. PHYSICAL EXAMINATION: VITAL SIGNS: Temperature of 98.4, blood pressure 119/61, pulse 67, respiratory rate 19, satting 98%. GENERAL: The patient is alert, awake, in no acute distress. NECK: JVP is approximately 8 to 9 cm of water. CHEST: Fair air movement throughout. HEART: Regular rate and rhythm. Normal S1, S2, I/ systolic murmur, nondisplaced PMI. ABDOMEN: Positive bowel sounds, soft. EXTREMITIES: No significant pitting edema, 1+ pulses bilateral posterior tibial. LABORATORY DATA: Most recently from today, white blood cell count 9.5, hemoglobin 13.7, platelet cou nt of 48. Sodium 140, potassium 4.3, creatinine 0.7, BUN 11. INR of 1.0. IMAGING STUDIES: KUB from 07/21/2018 revealing mild gassy ____ of the colon. ELECTROCARDIOGRAM: Somewhat distorted copy, normal sinus rhythm at 84 from 07/14/2018, normal axis, borderline isolated inferior Q in 3. IMPRESSION: 1. Preoperative evaluation prior to resection of colon mass. 2. Hypertension. 3. Diabetes mellitus. 4. Abnormal electrocardiogram. 5. Colon carcinoma. 6. Psychiatric disorder. RECOMMENDATIONS: 1. At this time, we would check serial EKGs to assess for ongoing changes, an EKG now as baseline, E KG in morning, EKG for any complaints of chest pain or change in rhythm. 2. We will send troponins q.6 hours to assure the patient has not had any recent coronary syndromes ____ to surgery. 3. We will try to expedite a cardiac stress test for this patient to further assess for possibility of any significant ischemia in a preoperative state. 4. Continue the patient's baseline Norvasc and benazepril for blood pressure control and discontinue the patient's Lasix, following volume status closely. 5. We will additionally check fasting lipid panel for general risk stratification. Thank you for allowing me to take part to take part in the care of this patient. I will continue to follow her very closely with you with further recommendations will be made as the patient progresses her inpatient hospital clinical course. Dictated By: CONY ANGEL/JOSE Conf#: [id number] DID#: [id number] CC: SHER TREJO MD; DIPIKA ADAMS MD; MARJORIE HAMILTON MD;*EndCC*
[2018-07-24 15:30] VITALS: BP 164/76; PULSE 70; RESP 16
--- NOTE | 2018-07-24 17:54 | PN ---
Date/Time of Note Date/Time of Note DATE: 07/24/18 TIME: 17:50 Assessment/Plan VTE Prophylaxis Risk score (from [facility])>0 risk: 5 SCD applied (from [facility]): Yes Pharmacological prophylaxis: NA/contraindicated Pharm contraindication: surgical contra Lines/Catheters IV Catheter Type (from [facility]): Peripheral IV Urinary Cath still in place: No Assessment/Plan Hospital Course Surgery was canceled today due to anesthesia request to reevaluation and clearance by cardiology prior to colon resection, Dr. Mata is asked to see patient in cardiology consultation. Patient remains hemodynamically stable, upset about postponing surgery, patient continued on clear liquid diet. Assessment/Plan -Colon cancer, plan for colon resection after adequate preparation. -Diabetes mellitus type 2, will continue Lantus and NovoLog. -Hypertension, continue Lotensin and Norvasc. -Preserved ejection fraction of 60%, status post clearance by in cardiology consultation for colon resection surgery as an outpatient. -COPD -Bipolar depressive disorder Further recommendations based on clinical course. Plan of care discussed with Dr. Osborne. Result Diagram: 07/24/18 0523 07/24/18 0523 Results 24hrs Laboratory Tests Test 07/23/18 17:51 07/23/18 21:07 07/24/18 05:23 07/24/18 08:43 Bedside Glucose 118 98 100 White Blood Count 9.5 Red Blood Count 4.66 Hemoglobin 13.7 Hematocrit 42.8 Mean Corpuscular Volume 91.8 Mean Corpuscular 29.4 Hemoglobin Mean Corpuscular 32.0 Hemoglobin Concent Red Cell Distribution 13.2 Width Platelet Count 493 H Mean Platelet Volume 10.0 Immature Granulocytes % 0.400 Neutrophils % 72.3 Lymphocytes % 17.8 Monocytes % 8.2 Eosinophils % 0.8 Basophils % 0.5 Nucleated Red Blood 0.0 Cells % Immature Granulocytes # 0.040 H Neutrophils # 6.8 Lymphocytes # 1.7 Monocytes # 0.8 Eosinophils # 0.1 Basophils # 0.1 Nucleated Red Blood 0.0 Cells # Prothrombin Time 13.7 Prothrombin Time Ratio 1.1 INR International 1.04 Normalized Ratio Activated 38.3 H Partial Thromboplast Time Thrombin Time 16.3 Sodium Level 140 Potassium Level 4.3 Chloride Level 104 Carbon Dioxide Level 29 Anion Gap 7 Blood Urea Nitrogen 11 Creatinine 0.78 Est Glomerular Filtrat > 60 Rate mL/min Glucose Level 131 # Calcium Level 9.2 Triglycerides Level 147 Cholesterol Level 182 LDL Cholesterol, 123 Calculated HDL Cholesterol 30 L Cholesterol/HDL Ratio 6.0 Test 07/24/18 12:37 Bedside Glucose 86 Exam/Review of Systems Exam Vitals Vital Signs Date Temp Pulse Resp B/P (MAP) Pulse Ox O2 O2 Flow FiO2 Time Delivery Rate 07/24/18 97.9 70 16 164/76 96 15:30 (105) 07/24/18 Nasal 2.0 08:22 Cannula Intake and Output 07/23/18 07/23/18 07/24/18 1414:59 22:59 06:59 IntakeIntake Total 1150 ml 675 ml 575 ml OutputOutput Total 700 ml 2700 ml BalanceBalance 1150 ml -25 ml -2125 ml Exam Constitutional: alert, oriented Neck: supple Respiratory: clear to auscultation Cardiovascular: nl pulses Gastrointestinal: soft, non-tender Extremities: normal pulses Results Results 24hrs Laboratory Tests Test 07/23/18 17:51 07/23/18 21:07 07/24/18 05:23 07/24/18 08:43 Bedside Glucose 118 98 100 White Blood Count 9.5 Red Blood Count 4.66 Hemoglobin 13.7 Hematocrit 42.8 Mean Corpuscular Volume 91.8 Mean Corpuscular 29.4 Hemoglobin Mean Corpuscular 32.0 Hemoglobin Concent Red Cell Distribution 13.2 Width Platelet Count 493 H Mean Platelet Volume 10.0 Immature Granulocytes % 0.400 Neutrophils % 72.3 Lymphocytes % 17.8 Monocytes % 8.2 Eosinophils % 0.8 Basophils % 0.5 Nucleated Red Blood 0.0 Cells % Immature Granulocytes # 0.040 H Neutrophils # 6.8 Lymphocytes # 1.7 Monocytes # 0.8 Eosinophils # 0.1 Basophils # 0.1 Nucleated Red Blood 0.0 Cells # Prothrombin Time 13.7 Prothrombin Time Ratio 1.1 INR International 1.04 Normalized Ratio Activated 38.3 H Partial Thromboplast Time Thrombin Time 16.3 Sodium Level 140 Potassium Level 4.3 Chloride Level 104 Carbon Dioxide Level 29 Anion Gap 7 Blood Urea Nitrogen 11 Creatinine 0.78 Est Glomerular Filtrat > 60 Rate mL/min Glucose Level 131 # Calcium Level 9.2 Triglycerides Level 147 Cholesterol Level 182 LDL Cholesterol, 123 Calculated HDL Cholesterol 30 L Cholesterol/HDL Ratio 6.0 Test 07/24/18 12:37 Bedside Glucose 86 Medications Medication Current Medications Sodium Chloride 1,000 ml @ 75 mls/hr [id number] IV Last administered on 07/24/18 02:00; Admin Dose 75 MLS/HR; Start 07/21/18 at 09:30 Mineral Oil (Mineral Oil) 50 ml TID PO Last administered on 07/23/18 08:48; Admin Dose 50 ML; Start 07/21/18 at 13:36 Mineral Oil (Fleet Mineral Oil Enema) 133 ml BID [place] Last administered on 07/23/18 22:11; Admin Dose 133 ML; Start 07/21/18 at 13:30 Tiotropium [place] (Spiriva) 1 inh DAILY INH Last administered on 07/24/18 08:40; Admin Dose 1 INH; Start 07/22/18 at 17:30 Albuterol (Ventolin Hfa) 2 puff Q6H RESP THERAPY INH Last administered on 07/24/18 08:40; Admin Dose 2 PUFF; Start 07/21/18 at 20:00 Amlodipine Besylate (Norvasc) 2.5 mg DAILY PO Last administered on 07/23/18 08:46; Admin Dose 2.5 MG; Start 07/22/18 at 09:00 Benazepril HCl (Lotensin) 40 mg DAILY PO Last administered on 07/23/18 08:46; Admin Dose 40 MG; Start 07/21/18 at 17:00 Docusate Sodium (Colace) 250 mg BID PO Last administered on 07/23/18 22:08; Admin Dose 250 MG; Start 07/21/18 at 21:00 Duloxetine HCl (Cymbalta) 60 mg DAILY PO Last administered on 07/23/18 08:44; Admin Dose 60 MG; Start 07/22/18 at 09:00 Furosemide (Lasix) 40 mg DAILY PO Last administered on 07/23/18 08:47; Admin Dose 40 MG; Start 07/22/18 at 09:00 Gabapentin (Neurontin) 100 mg TID PO Last administered on 07/23/18 21:06; Admin Dose 100 MG; Start 07/21/18 at 21:00 Acetaminophen/ Hydrocodone Bitart ([place]oint (10/325)) 1 tab Q6H PRN PO PAIN; Start 07/21/18 at 17:00 Oxybutynin Chloride (Ditropan Xl) 5 mg DAILY PO Last administered on 07/23/18at 08:44; Admin Dose 5 MG; Start 07/22/18 at 09:00 Pantoprazole (Protonix Tab) 40 mg DAILY@06 PO Last administered on 07/23/18at 05:03; Admin Dose 40 MG; Start 07/22/18 at 06:00 Insulin Aspart (Novolog Insulin Pen) NOVOLOG *MILD* ALGORITHM WITH MEALS BEDTIME SC ; Start 07/21/18 at 17:55 Miscellaneous Information 1 ea NOTE XX ; Start 07/21/18 at 17:30 Glucose (Glutose) 15 gm Q15M PRN PO DECREASED GLUCOSE; Start 07/21/18 at 17:30 Glucose (Glutose) 22.5 gm Q15M PRN PO DECREASED GLUCOSE; Start 07/21/18 at 17:30 Dextrose (D50w Syringe) 25 ml Q15M PRN IV DECREASED GLUCOSE; Start 07/21/18 at 17:30 Dextrose (D50w Syringe) 50 ml Q15M PRN IV DECREASED GLUCOSE; Start 07/21/18 at 17:30 Glucagon (Glucagen) 1 mg Q15M PRN IM DECREASED GLUCOSE; Start 07/21/18 at 17:30 Glucose (Glutose) 15 gm Q15M PRN BUCCAL DECREASED GLUCOSE; Start 07/21/18 at 17:30 Ondansetron HCl (Zofran Inj) 4 mg Q4H PRN IV NAUSEA AND/OR VOMITING Last administered on 07/22/18at 06:41; Admin Dose 4 MG; Start 07/21/18 at 21:00 Metoclopramide HCl (Reglan) 10 mg Q6 IV Last administered on 07/24/18at 12:40; Admin Dose 10 MG; Start 07/22/18 at 12:00 Insulin Aspart (Novolog Insulin Pen) 5 unit WITH MEALS SC Last administered on 07/23/18at 08:53; Admin Dose 5 UNIT; Start 07/23/18 at 07:50 Insulin Glargine (Lantus) 20 units DAILY@2000 SC Last administered on 07/23/18at 21:09; Admin Dose 20 UNITS; Start 07/23/18 at 20:00 Quetiapine Fumarate (Seroquel) 100 mg HS PO Last administered on 07/23/18at 22:08; Admin Dose 100 MG; Start 07/23/18 at 21:00 TONY ADLER July 24, 2018 17:54
--- NOTE | 2018-07-24 18:49 | PN ---
DATE: 07/24/2018 SUBJECTIVE: No new complaint. OBJECTIVE: GENERAL: Alert, awake, oriented. VITAL SIGNS: Temperature maximum today 99.1, heart rate 69, respirations 19, blood pressure 117/66, saturation 95% on 2-liter nasal cannula. HOSPITAL COURSE: Actually, the patient was brought to the holding area, awaiting to be transferred t o the operating room, but when the anesthesiologist evaluated the patient, he was not satisfied with the clearance that was given from cardiology point of view for the patient from the outside cardiolog ist consultation and he requested that the patient be seen by community services officer. The patient did have a s tress test considering all these comorbidities that the patient has; therefore, the case was canceled for operation and requests a consultation from Dr. Mata, community services officer. He saw the patient and ev aluated the patient and is planning to do this kind of a stress test for the patient then after that we will make a decision for procedure. Dictated By: LEODAN TREJO MD PS/NTS Conf#: [id number] DID#: [id number] CC: MARJORIE BONNER MD; DIPIKA ADAMS MD;*EndCC*
--- NOTE | 2018-07-24 19:06 | RADRPT ---
Vent Rate: 65 bpm RR Interval: 924 msec SD Interval: 147 msec QRS Duration: 95 msec QT Interval: 412 msec QTC Interval: 429 msec P-R-T [place]: 29 - 49 - 77 degrees Sinus rhythm...normal P axis, V-rate 50- 99 Electronically Signed By: Jose Armando Briceno
--- NOTE | 2018-07-24 19:55 | CARRPT ---
DATE OF PROCEDURE: 07/24/2018 TYPE OF PROCEDURE: Lexiscan Cardiolite stress test, electrocardiogram portion. REASON FOR STRESS TESTING: Preoperative evaluation. REFERRING PHYSICIAN: Sher Trejo MD, from surgical department. ATTENDING PHYSICIAN: Cony Mata MD BASELINE VITAL SIGNS AND ELECTROCARDIOGRAM: Pulse 64, blood pressure 145/71. Electrocardiogram was normal sinus rhythm, rate 64, normal axis, normal intervals, inferior T-wave inversions and isolated Q in 3. DESCRIPTION OF PROCEDURE: The patient underwent standard placement of standard Lexiscan infusion pro tocol over 10 seconds followed by radiolabeled tracer. The patient's test was stopped due to complet ion of protocol. Maximal achieved blood pressure during the test was 192/100. Maximum pulse rate du ring the test was 100. SYMPTOMS: The patient had complaints of abdominal pain and nausea during stress testing, no chest pa in, shortness of breath. ELECTROCARDIOGRAM FINDINGS: The patient did not develop any new Lexiscan-induced ST or T-wave change s from baseline abnormalities. No documented PVCs. IMPRESSION: 1. No Lexiscan-induced ST or T-wave changes from baseline abnormalities diagnostic of cardiac ischem ia. 2. No complaints of chest pain or shortness of breath during stress testing. 3. Positive nausea, vomiting during stress testing that resolved in recovery. 4. Report of nuclear images to follow in separate dictation. Dictated By: CONY ANGEL/JOSE Conf#: [id number] DID#: [id number] CC: DIPIKA ADAMS MD; MARJORIE BONNER MD; SHER TREJO MD;*EndCC*
[2018-07-24] MEDS: INSULIN GLARGINE [LANTus] (100 UNITS/ML) SYG SC SCH (20:00)
[2018-07-24 20:30] VITALS: BP 150/72; PULSE 66; RESP 18
--- NOTE | 2018-07-24 21:21 | RADRPT ---
Echocardiogram Report Patient Name: RACHEL JANGatient ID: [id number] : 1960 (57y 9m)Study Date: 07/24/2018 1:54:34 PM Gender: FAccession #: [id number] Tech: Jonn Hathaway [facility] Location: [facility] [place] Ref.Physician: CONY MATA Height(Cm): BSA: Weight(Kg): Quality: AdequateAccount #: Procedures: Echocardiographic Report: Transthoracic echocardiogram with complete 2D, M-Mode, and doppler examination. Indications: Pre-op. Measurements: 2D/M Mode Doppler Measurement Value Normal Range Measurement Value Normal Range LVIDd 2D 4.4 [ 3.8 - 5.2 ] cm AV Peak Michael 1.7 [ 100.0 - 170.0 ] cm/sec LVIDs 2D 2.8 [ 2.2 - 3.5 ] cm AV Peak PG 11.0 [ 2.0 - 9.0 ] mmHg LVPWd 2D 0.8 [ 0.6 - 0.9 ] cm LVOT Peak Michael 1.1 [ 70.0 - 110.0 ] cm/sec IVSd 2D 1.5 [ 0.6 - 0.9 ] cm LVOT Peak PG 5.0 [ 2.0 - 6.0 ] mmHg AoR Diam 2D 2.3 [ 2.3 - 3.1 ] cm MV E Peak Michael 0.9 [ 60.0 - 130.0 ] cm/sec EDV 2D 89.1 [ 46.0 - 106.0 ] ml MV A Peak Michael 0.8 [ 100.0 - 120.0 ] cm/sec ESV 2D 28.5 [ 14.0 - 42.0 ] ml MV E/A 1.2 [ 0.8 - 1.5 ] ratio EF 2D 68.0 [ 54.0 - 74.0 ] percent MV Decel Time 208 [ 104 - 258 ] msec LA Dimen 2D 3.2 [ 2.7 - 3.8 ] cm Lat E` Michael 0.1 [ 10.0 - 15.0 ] cm/sec Lateral E/E` 13.3 [ 1.0 - 2.0 ] ratio MV E/A 1.2 [ 0.8 - 1.5 ] ratio TR Peak Michael 2.0 [ 100.0 - 280.0 ] cm/sec TR Peak PG 15.0 mmHg RVSP 18.0 [ 10.0 - 36.0 ] mmHg Findings: Left Ventricle: Normal left ventricular systolic function. Normal left ventricular cavity size. Moderate asymmetric septal hypertrophy. Ejection fraction is visually estimated at 60 %. Tissue Doppler/Mitral Doppler indices are consistent with impaired relaxation (Stage I diastolic dysfunction). Right Ventricle: Normal right ventricular size. Normal right ventricular systolic function. Left Atrium: The left atrium is normal in size. Right Atrium: The right atrium is normal in size. Mitral Valve: Mild mitral leaflet calcification. Mild mitral annular calcification. Trace mitral regurgitation. Aortic Valve: No hemodynamically significant aortic stenosis by doppler. Aortic cusps appear mildly calcified. Tricuspid Valve: Normal appearance of the tricuspid valve. Estimated peak PA systolic pressure 18 mmHg. There is trace tricuspid regurgitation. Pericardium: Normal pericardium with no significant pericardial effusion. Aorta: Normal aortic root. IVC: Normal size and normal respiratory collapse consistent with normal right atrial pressure. Conclusions: Normal left ventricular systolic function. Normal left ventricular cavity size. Moderate asymmetric septal hypertrophy. Ejection fraction is visually estimated at 60 %. Tissue Doppler/Mitral Doppler indices are consistent with impaired relaxation (Stage I diastolic dysfunction). Mild mitral leaflet calcification. Mild mitral annular calcification. Trace mitral regurgitation. Normal appearance of the tricuspid valve. Estimated peak PA systolic pressure 18 mmHg. There is trace tricuspid regurgitation. Electronically Signed By: Cony Mata 2018-07-24 21:21:07 PDT
[2018-07-24] MEDS ORDERED: DEXTROSE 5% 1,000 ML IV SCH (22:00)
[2018-07-24] MEDS: QUETIAPINE 100 MG TAB PO SCH (22:09)
[2018-07-24] MEDS: DEXTROSE 5%-0.9% NACL 1,000 ML IV SCH (22:11)
[2018-07-25] MEDS: METOCLOPRAMIDE 10 MG INJ IV SCH ×3 (00:58→12:00)
[2018-07-25] MEDS: ALBUTEROL HFA 8 GM INHALER INH SCH (01:01)
[2018-07-25 01:18] VITALS: BP 119/59; PULSE 74; RESP 18
[2018-07-25] MEDS: PANTOPRAZOLE (EC) 40 MG TAB PO SCH (06:28)
[2018-07-25] MEDS: DEXTROSE 5%-0.9% NACL 1,000 ML IV SCH ×2 (06:30→08:29)
[2018-07-25] MEDS: SOD CHLORIDE 0.9% 1,000 ML IV SCH (06:50)
[2018-07-25 07:17] VITALS: BP 148/69; PULSE 69; RESP 17
[2018-07-25] MEDS: INSULIN ASPART [NOVOLOG] 3 ML PEN SC SCH ×4 (08:00→12:00)
[2018-07-25] MEDS: DULOXETINE 30 MG CAP DR PO SCH (08:25)
[2018-07-25] MEDS: AMLODIPINE 2.5 MG TAB PO SCH (08:25)
[2018-07-25] MEDS: DOCUSATE SODIUM 250 MG CAP PO SCH (08:25)
[2018-07-25] MEDS: GABAPENTIN 100 MG CAP PO SCH ×2 (08:25→13:00)
[2018-07-25] MEDS: OXYBUTYNIN (XL) 5 MG TAB PO SCH (08:25)
[2018-07-25] MEDS: BENAZEPRIL 40 MG TAB PO SCH (08:25)
[2018-07-25] MEDS: FUROSEMIDE 40 MG TAB PO SCH (08:25)
[2018-07-25] MEDS: TIOTROPIUM 18 MCG CAPSULE INHA DEV INH SCH (08:31)
[2018-07-25] MEDS: MINERAL OIL 133 ML ENEMA PR SCH ×2 (09:00→13:14)
[2018-07-25] MEDS: MINERAL OIL 30ML CUP PO SCH ×2 (09:00→13:00)
--- NOTE | 2018-07-25 11:54 | CONS ---
Consult Date/Type/Reason Admit Date/Time July 21, 2018 at 07:05 Initial Consult Date Date/Time of Note DATE: 07/25/18 TIME: 11:52 Subjective NO acute events - stress test negative - OK for surgery. ROS: No fever, no chills, no nausea, no vomiting, no diarrhea/constipation No recent weight changes No chest pain, no PND, no orthopnea No dizziness, blurred vision No thirst, no heat or cold intolerance Objective Vitals Vital Signs Date Temp Pulse Resp B/P (MAP) Pulse Ox O2 O2 Flow FiO2 Time Delivery Rate 07/25/18 98.5 69 17 148/69 98 Nasal 07:17 (95) Cannula 07/24/18 2.0 20:30 Intake and Output 07/24/18 07/24/18 07/25/18 1515:00 23:00 07:00 IntakeIntake Total 100 ml 1100 ml 800 ml BalanceBalance 100 ml 1100 ml 800 ml Exam General: WN/WD/NAD, AOx 3 HEENT: Unicetric/atraumatic/EOMI (follows commands) NECK: JVD elevated, no thyromegaly Lymph: no lymphadenopathy HEART: regular with no S3, II/ systolic murmur at apex LUNGS: Coarse sounds ABD: soft, NT, ND, +BS : Intact Neuro: non focal SKIN: chronic changes EXT: trace edema Results/Medications Result Diagram: 07/24/1852207/24/18522 Results 24 hrs Laboratory Tests Test 07/24/18 12:37 07/24/18 18:12 07/24/18 21:29 07/25/18 08:23 Bedside Glucose 86 92 78 114 Home Meds Reported Medications Gabapentin* (Gabapentin*) 100 Mg Capsule, 100 MG PO TID, #90 CAP 07/21/18 Quetiapine Fumarate* (Seroquel*) 50 Mg Tablet, 50 MG PO HS, TAB 07/21/18 Hydrocodone/Acetaminophen ([place] 10-325 Tablet) 1 Each Tablet, 1 EACH PO Q6 PRN for PAIN, TAB 07/21/18 Benazepril Hcl* (Lotensin*) 40 Mg Tablet, 40 MG PO DAILY, #30 TAB 07/21/18 Oxybutynin Chloride* (Ditropan* XL) 5 Mg Tabsr, 5 MG PO DAILY, TAB.SA 07/21/18 Amlodipine Besylate* (Norvasc*) 2.5 Mg Tablet, 2.5 MG PO DAILY, TAB 07/21/18 Docusate Sodium* (Dok*) 250 Mg Capsule, 250 MG PO BID, #60 CAP 07/21/18 Duloxetine Hcl* (Cymbalta*) 60 Mg Capsule.dr, 60 MG PO DAILY, CAP 07/21/18 Furosemide* (Furosemide*) 40 Mg Tablet, 40 MG PO DAILY, TAB 07/21/18 Umeclidinium [place] (Incruse Ellipta) 62.5 Mcg Blst.w.dev, 62.5 MCG IH DAILY 07/21/18 Albuterol Sulfate* (Ventolin HFA*) 18 Gm Hfa.aer.ad, 2 PUFF INHALATION Q6, #1 INHALER 07/21/18 Omeprazole* (Omeprazole*) 40 Mg Capsule.dr, 40 MG PO DAILY, #30 CAP 07/21/18 Insulin Lispro (Humalog Kwikpen U-100) 100 Unit/1 Ml Insuln.pen, 12 UNIT SQ SNACKS, EA 07/21/18 Insulin Lispro (Humalog Kwikpen U-100) 100 Unit/1 Ml Insuln.pen, 24 UNIT SQ AC A, EA 07/21/18 Insulin Glargine* (Lantus*) 100 Unit/Ml Soln, 75 UNIT SC QHS, #1 VIAL 07/21/18 Discontinued Reported Medications Hydrocodone/Acetaminophen ([place] 7.5-325 Tablet) 1 Each Tablet, 1 EACH PO, TAB 10/30/16 Naproxen* (Naprosyn*) 500 Mg Tablet, 500 MG PO BID, TAB 10/30/16 Meloxicam* (Meloxicam*) 7.5 Mg/5 Ml Oral.susp, 15 MG PO DAILY, #300 ML 10/30/16 Insulin Lispro (Humalog) 100 Unit/1 Ml Cartridge, 100 UNIT SQ BEFORE MEALS 01/04/16 Insulin Glargine* (Lantus*) 100 Unit/Ml Soln, 60 UNIT SC QHS, #1 VIAL 01/04/16 Oxybutynin Chloride* (Ditropan* XL) 5 Mg Tabsr, 5 MG PO DAILY, TAB.SA 01/04/16 Amlodipine Besylate* (Norvasc*) 2.5 Mg Tablet, 2.5 MG PO DAILY, TAB 01/04/16 Gabapentin* (Gabapentin*) 100 Mg Capsule, 300 MG PO TID, #90 CAP 01/04/16 Benazepril Hcl* (Lotensin*) 40 Mg Tablet, 40 MG PO DAILY, #30 TAB 01/04/16 Duloxetine Hcl* (Cymbalta*) 60 Mg Capsule.dr, 60 MG PO DAILY, CAP 01/04/16 Trazodone Hcl* (Trazodone Hcl*) 100 Mg Tablet, 100 MG PO BID, #60 TAB 01/04/16 Medications Current Medications Sodium Chloride 1,000 ml @ 75 mls/hr [id number] IV Last administered on 07/24/18 18:08; Admin Dose 75 MLS/HR; Start 07/21/18 at 09:30 Mineral Oil (Mineral Oil) 50 ml TID PO Last administered on 07/23/18 08:48; Admin Dose 50 ML; Start 07/21/18 at 13:36 Mineral Oil (Fleet Mineral Oil Enema) 133 ml BID RI Last administered on 07/23/18 22:11; Admin Dose 133 ML; Start 07/21/18 at 13:30 Tiotropium [place] (Spiriva) 1 inh DAILY INH Last administered on 07/25/18 08:31; Admin Dose 1 INH; Start 07/22/18 at 17:30 Albuterol (Ventolin Hfa) 2 puff Q6H RESP THERAPY INH Last administered on 07/25/18 01:01; Admin Dose 2 PUFF; Start 07/21/18 at 20:00 Amlodipine Besylate (Norvasc) 2.5 mg DAILY PO Last administered on 07/25/18 08:25; Admin Dose 2.5 MG; Start 07/22/18 at 09:00 Benazepril HCl (Lotensin) 40 mg DAILY PO Last administered on 07/25/18 08:25; Admin Dose 40 MG; Start 07/21/18 at 17:00 Docusate Sodium (Colace) 250 mg BID PO Last administered on 07/25/18 08:25; Admin Dose 250 MG; Start 07/21/18 at 21:00 Duloxetine HCl (Cymbalta) 60 mg DAILY PO Last administered on 07/25/18 08:25; Admin Dose 60 MG; Start 07/22/18 at 09:00 Furosemide (Lasix) 40 mg DAILY PO Last administered on 07/25/18 08:25; Admin Dose 40 MG; Start 07/22/18 at 09:00 Gabapentin (Neurontin) 100 mg TID PO Last administered on 07/25/18 08:25; Admin Dose 100 MG; Start 07/21/18 at 21:00 Acetaminophen/ Hydrocodone Bitart ([place] (10/325)) 1 tab Q6H PRN PO PAIN; Start 07/21/18 at 17:00 Oxybutynin Chloride (Ditropan Xl) 5 mg DAILY PO Last administered on 07/25/18 08:25; Admin Dose 5 MG; Start 07/22/18 at 09:00 Pantoprazole (Protonix Tab) 40 mg DAILY@06 PO Last administered on 07/25/18 06:28; Admin Dose 40 MG; Start 07/22/18 at 06:00 Insulin Aspart (Novolog Insulin Pen) NOVOLOG *MILD* ALGORITHM WITH MEALS BEDTIME SC ; Start 07/21/18 at 17:55 Miscellaneous Information 1 ea NOTE XX ; Start 07/21/18 at 17:30 Glucose (Glutose) 15 gm Q15M PRN PO DECREASED GLUCOSE; Start 07/21/18 at 17:30 Glucose (Glutose) 22.5 gm Q15M PRN PO DECREASED GLUCOSE; Start 07/21/18 at 17:30 Glucagon (Glucagen) 1 mg Q15M PRN IM DECREASED GLUCOSE; Start 07/21/18 at 17:30 Glucose (Glutose) 15 gm Q15M PRN BUCCAL DECREASED GLUCOSE; Start 07/21/18 at 17:30 Ondansetron HCl (Zofran Inj) 4 mg Q4H PRN IV NAUSEA AND/OR VOMITING Last administered on 07/22/18 06:41; Admin Dose 4 MG; Start 07/21/18 at 21:00 Metoclopramide HCl (Reglan) 10 mg Q6 IV Last administered on 07/25/18 06:10; Admin Dose 10 MG; Start 07/22/18 at 12:00 Insulin Aspart (Novolog Insulin Pen) 5 unit WITH MEALS SC Last administered on 07/25/18at 08:33; Admin Dose 5 UNIT; Start 07/23/18 at 07:50 Insulin Glargine (Lantus) 20 units DAILY@2000 SC Last administered on 07/23/18at 21:09; Admin Dose 20 UNITS; Start 07/23/18 at 20:00 Quetiapine Fumarate (Seroquel) 100 mg HS PO Last administered on 07/24/18at 22:09; Admin Dose 100 MG; Start 07/23/18 at 21:00 Dextrose/Sodium Chloride 1,000 ml @ 125 mls/hr Q8H IV Last administered on 07/25/18at 08:29; Admin Dose 125 MLS/HR; Start 07/24/18 at 22:30 Assessment/Plan Hospital Course (Demo Recall) 1. Preoperative evaluation prior to resection of colon mass- Stress trst normal - OK to surgery. 2. Hypertension - reasonably controlled. 3. Diabetes mellitus- on meds, keep euglycemic. 4. Abnormal electrocardiogram. 5. Colon carcinoma - resection planned. 6. Psychiatric disorder - defer to PMD. SUNSHINE BECKFORD MD July 25, 2018 11:54
--- NOTE | 2018-07-25 14:03 | RADRPT ---
Vent Rate: 67 bpm RR Interval: 892 msec UT Interval: 165 msec QRS Duration: 94 msec QT Interval: 404 msec QTC Interval: 428 msec P-R-T Buckner: 32 - 20 - 63 degrees Sinus rhythm...normal P axis, V-rate 50- 99 Electronically Signed By: Jose Armando Briceno
[2018-07-25 14:17] VITALS: BP 133/66; PULSE 66; RESP 17
--- NOTE | 2018-07-25 16:04 | PN ---
DATE: 07/25/2018 SUBJECTIVE: No new complaint. OBJECTIVE: GENERAL: Awake, alert, oriented. VITAL SIGNS: Temperature maximum 98.5, heart rate 69, respirations 17, blood pressure 148/69, satura tion 98% room air. HEART: Regular. LUNGS: Clear. ABDOMEN: Soft. EXTREMITIES: Legs have no calf tenderness. LABORATORY DATA: POC glucose today on 2 occasions is 114. ASSESSMENT AND PLAN: A 57-year-old female who has been admitted for preparation for left colon resec tion for the cancer of left colon. Just before operation, the anesthesiologist was not satisfied wit h the report of the outpatient behavior interventionist who cleared the patient because the patient did not have a stress test, so he wanted the stress test to be done to make sure low risk of the operation for thi s patient as she has comorbidity with severe diabetes and high blood pressure. The patient is on ove r 200 units of insulin per day. The behavior interventionist did Lexiscan stress test yesterday and the report i s back now. Manager Battery, Dr. Santos today reported that preoperative evaluation prior to resection of the colon mass, stress test normal, okay to surgery. Unfortunately, it is too late to book the ant humphries for today's operation and the operating room availability is negative for Saturday because [facility] it has been completely booked for Dr. Hamilton. Therefore, probably the earliest time that the patie nt can have operation will be next week by the end of the week. Therefore, Dr. Hamilton informed the pa tieolga that she can go home, try to be on soft diet and continue her medications for blood pressure, d iabetes and other medication and then will follow with Dr. Hamilton in his office next week, so that the y can make arrangement for colon resection next week or the following weeks. I personally saw the pa tieolga again today at 3:00 p.m. I explained to her and she agreed and she is willing to go as soon as possible. The patient will be discharged by Dr. Adams, internal medicine colleague, who gave ins tructions for high blood pressure and diabetes. The patient will be followed by Dr. Hamilton in the off ice next week. Dictated By: LEODAN PLAZA/JOSE Conf#: [id number] [facility]#: [id number] CC: MARJORIE HAMILTON MD; DIPIKA ADAMS MD;*[facility]*
--- NOTE | 2018-07-25 16:40 | PDOCDIS ---
Discharge Instructions CONDITION [id number] Patient Condition: [id number] Good HOME CARE INSTRUCTIONS: [id number] Diet Instructions: [id number] Reduced Calorie ACTIVITY: [id number] Activity Restrictions: Jkgni7m No Restrictions Oxgyf2Mp Bathing Restrictions: Qasgk2p Shower FOLLOW UP/APPOINTMENTS Follow-up Plan PMD & Dr. Hamilton next week DIPIKA ADAMS MD July 25, 2018 16:40
--- NOTE | 2018-07-25 23:32 | DS ---
Date/Time of Note Date/Time of Note DATE: 07/25/18 TIME: 23:32 Discharge Summary Admission/Discharge Info Admit Date/Time July 21, 2018 at 07:05 Discharge Date/Time July 25, 2018 at 17:45 Home Meds Reported Medications Gabapentin* (Gabapentin*) 100 Mg Capsule, 100 MG PO TID, #90 CAP 07/21/18 Quetiapine Fumarate* (Seroquel*) 50 Mg Tablet, 50 MG PO HS, TAB 07/21/18 Hydrocodone/Acetaminophen ([place] 10-325 Tablet) 1 Each Tablet, 1 EACH PO Q6 PRN for PAIN, TAB 07/21/18 Benazepril Hcl* (Lotensin*) 40 Mg Tablet, 40 MG PO DAILY, #30 TAB 07/21/18 Oxybutynin Chloride* (Ditropan* XL) 5 Mg Tabsr, 5 MG PO DAILY, TAB.SA 07/21/18 Amlodipine Besylate* (Norvasc*) 2.5 Mg Tablet, 2.5 MG PO DAILY, TAB 07/21/18 Docusate Sodium* (Dok*) 250 Mg Capsule, 250 MG PO BID, #60 CAP 07/21/18 Duloxetine Hcl* (Cymbalta*) 60 Mg Capsule.dr, 60 MG PO DAILY, CAP 07/21/18 Furosemide* (Furosemide*) 40 Mg Tablet, 40 MG PO DAILY, TAB 07/21/18 Umeclidinium [place] (Incruse Ellipta) 62.5 Mcg Blst.w.dev, 62.5 MCG IH DAILY 07/21/18 Albuterol Sulfate* (Ventolin HFA*) 18 Gm Hfa.aer.ad, 2 PUFF INHALATION Q6, #1 INHALER 07/21/18 Omeprazole* (Omeprazole*) 40 Mg Capsule.dr, 40 MG PO DAILY, #30 CAP 07/21/18 Insulin Lispro (Humalog Kwikpen U-100) 100 Unit/1 Ml Insuln.pen, 12 UNIT SQ SNACKS, EA 07/21/18 Insulin Lispro (Humalog Kwikpen U-100) 100 Unit/1 Ml Insuln.pen, 24 UNIT SQ AC A, EA 07/21/18 Insulin Glargine* (Lantus*) 100 Unit/Ml Soln, 75 UNIT SC QHS, #1 VIAL 07/21/18 Discontinued Reported Medications Hydrocodone/Acetaminophen ([place] 7.5-325 Tablet) 1 Each Tablet, 1 EACH PO, TAB 10/30/16 Naproxen* (Naprosyn*) 500 Mg Tablet, 500 MG PO BID, TAB 10/30/16 Meloxicam* (Meloxicam*) 7.5 Mg/5 Ml Oral.susp, 15 MG PO DAILY, #300 ML 10/30/16 Insulin Lispro (Humalog) 100 Unit/1 Ml Cartridge, 100 UNIT SQ BEFORE MEALS 01/04/16 Insulin Glargine* (Lantus*) 100 Unit/Ml Soln, 60 UNIT SC QHS, #1 VIAL 01/04/16 Oxybutynin Chloride* (Ditropan* XL) 5 Mg Tabsr, 5 MG PO DAILY, TAB.SA 01/04/16 Amlodipine Besylate* (Norvasc*) 2.5 Mg Tablet, 2.5 MG PO DAILY, TAB 01/04/16 Gabapentin* (Gabapentin*) 100 Mg Capsule, 300 MG PO TID, #90 CAP 01/04/16 Benazepril Hcl* (Lotensin*) 40 Mg Tablet, 40 MG PO DAILY, #30 TAB 01/04/16 Duloxetine Hcl* (Cymbalta*) 60 Mg Capsule.dr, 60 MG PO DAILY, CAP 01/04/16 Trazodone Hcl* (Trazodone Hcl*) 100 Mg Tablet, 100 MG PO BID, #60 TAB 01/04/16 Follow-up Plan PMD & Dr. Hamilton next week Primary Care Provider Not On Staff Doctor Pending Labs Laboratory Tests Test 07/25/18 08:23 Bedside Glucose 114 mg/dL (70-220) GABINO CALERO July 25, 2018 23:32
== END 2018-07-25 17:45 | disposition home or self-care (01) | DRG 376 ==
LOC: REC 07-21 07:05 → MS1 07-21 11:41 → 2NE 07-23 20:25
PROVIDERS: ADMIT Surgery Surgical Oncology; ATTEND Surgery Surgical Oncology
DX: C18.7 Malignant neoplasm of sigmoid colon (principal); E11.8 Type 2 diabetes mellitus with unspecified complications; I10 Essential (primary) hypertension; J44.9 Chronic obstructive pulmonary disease, unspecified; E66.9 Obesity, unspecified; Z68.38 Body mass index [BMI] 38.0-38.9, adult; Z53.8 Procedure and treatment not carried out for other reasons; Z72.0 Tobacco use; F25.0 Schizoaffective disorder, bipolar type; R94.31 Abnormal electrocardiogram [ECG] [EKG]
CPT/HCPCS: 74018; 78451; 80048; 80053; 80061; 82962; 83036; 85025; 85049; 85610; 85670; 85730; 93005; 93306; A9500; A9505; J0295; J1815; J2405; J2543; J2765; J2785; J3010; J7030; J7042

== ENCOUNTER 2018-08-14 08:05 | Inpatient (IN) | payer BC, OTHER ==
[2018-08-13 15:55] VITALS: BMI 36.3
[2018-08-14] VITALS (23 sets, daily range): BP systolic 82–158; BP diastolic 43–86; PULSE 68–92; RESP 12–20; Ht 157.5 cm; Wt 94.7 kg
[~2018-08-14] VITALS: Ht 157.5 cm; Wt 94.7 kg
[~2018-08-14 08:05] MED LIST changes: +ALBU18HF INHALATION; +AMPICILLIN/SULB 3 GM/NS (PMX) 100 ML IVPB SCH; +DOCU250C68 PO; +FURO40TA4 PO; +HYDR-3980 PO; -HYDR-4012 PO; -INSU100C SQ; +INSU100I12 SQ; -MELO7.5O PO; -NAPR-985 PO; +OMEP40CA6 PO; +QUET50TA PO; +SOD CHLORIDE 0.9% 1,000 ML IV ONE; -TRA100 PO; +UMEC62.5 IH
[2018-08-14] MEDS ORDERED: INSULIN REGULAR, HUMAN 100 UNIT/1 ML 3ML VIAL SC ONE ×2 (09:43→14:13)
[2018-08-14] MEDS ORDERED: GLUCOSE GEL 15 GRAM TUBE PO PRN ×2 (10:00)
[2018-08-14] MEDS ORDERED: DEXTROSE 50% 50 ML SYRINGE IV PRN ×2 (10:00)
[2018-08-14] MEDS ORDERED: GLUCAGON 1 MG INJ IM PRN (10:00)
[2018-08-14] MEDS ORDERED: GLUCOSE GEL 15 GRAM TUBE BUCCAL PRN (10:00)
--- NOTE | 2018-08-14 10:20 | PREAC ---
Date/Time of Note Date/Time of Note DATE: 08/14/18 TIME: 10:17 Anesthesia Eval and Record Evaluation Time Pre-Procedure Interview DATE: 08/14/18 TIME: 10:17 Age 57 Sex female NPO: 8 hrs Preoperative diagnosis colon cancer Planned procedure left colon resection Past Medical History Past Medical History: Includes Cardio: HTN Endo: Diabetes Pulm: COPD Musculoskeletal: Osteoarthritis GI: Obesity Psych: Depression, Anxiety Surgery & Anesthesia Issues No known issue Meds Anticoagulation: No Beta Hellen within 24 hr: No Reason Beta Hellen not given: Pt. not on B-Hellen Reported Medications Gabapentin* (Gabapentin*) 100 Mg Capsule, 100 MG PO TID, #90 CAP 07/21/18 Quetiapine Fumarate* (Seroquel*) 50 Mg Tablet, 50 MG PO HS, TAB 07/21/18 Hydrocodone/Acetaminophen ([place] 10-325 Tablet) 1 Each Tablet, 1 EACH PO Q6 PRN for PAIN, TAB 07/21/18 Benazepril Hcl* (Lotensin*) 40 Mg Tablet, 40 MG PO DAILY, #30 TAB 07/21/18 Oxybutynin Chloride* (Ditropan* XL) 5 Mg Tabsr, 5 MG PO DAILY, TAB.SA 07/21/18 Amlodipine Besylate* (Norvasc*) 2.5 Mg Tablet, 2.5 MG PO DAILY, TAB 07/21/18 Docusate Sodium* (Dok*) 250 Mg Capsule, 250 MG PO BID, #60 CAP 07/21/18 Duloxetine Hcl* (Cymbalta*) 60 Mg Capsule.dr, 60 MG PO DAILY, CAP 07/21/18 Furosemide* (Furosemide*) 40 Mg Tablet, 40 MG PO DAILY, TAB 07/21/18 Umeclidinium [place] (Incruse Ellipta) 62.5 Mcg Blst.w.dev, 62.5 MCG IH DAILY 07/21/18 Albuterol Sulfate* (Ventolin HFA*) 18 Gm Hfa.aer.ad, 2 PUFF INHALATION Q6, #1 INHALER 07/21/18 Omeprazole* (Omeprazole*) 40 Mg Capsule.dr, 40 MG PO DAILY, #30 CAP 07/21/18 Insulin Lispro (Humalog Kwikpen U-100) 100 Unit/1 Ml Insuln.pen, 12 UNIT SQ SNACKS, EA 07/21/18 Insulin Lispro (Humalog Kwikpen U-100) 100 Unit/1 Ml Insuln.pen, 24 UNIT SQ AC A, EA 07/21/18 Insulin Glargine* (Lantus*) 100 Unit/Ml Soln, 75 UNIT SC QHS, #1 VIAL 07/21/18 Current Medications Ampicillin Sodium/ Sulbactam Sodium 100 ml @ 200 mls/hr PRE-OP IVPB ; Start 08/14/18 at 06:00; Stop 08/14/18 at 15:00 Sodium Chloride 1,000 ml @ 75 mls/hr [id number] ONCE IV ; Start 08/14/18 at 06:00; Stop 08/14/18 at 19:19 Meds reviewed: Yes Allergies Coded Allergies: morphine (Verified Allergy, Intermediate, HIVES, VOMITTING, 07/21/18) Allergies Reviewed: Yes Labs/Studies Labs Reviewed: Reviewed by anesthesiologist test: N/A Pre-procedure Exam Airway: Adequate mouth opening, Adequate thyromental dist Mallampati: Mallampati II Teeth: Normal Lung: Normal Heart: Normal ASA Physical Status ASA physical status: 3 Emergency: None Planned Anesthetic General/MAC: ETT Planned Pain Management Parenteral pain med Pre-operative Attestations Prior to commencing anesthesia and surgery, the patient was re-evaluated, there was verification of: *The patient's identity *The results of appropriate recent lab work and preoperative vital signs *The above evaluation not changing prior to induction *Anesthetic plan, risk benefits, alternative and complications discussed with patient/family; questions answered; patient/family understands, accepts and wishes to proceed. PORFIRIO MANE August 14, 2018 10:20
[2018-08-14] MEDS ORDERED: PROPOFOL 20 ML ONE (10:29)
[2018-08-14] MEDS ORDERED: LIDOCAINE 2% (SDV) 5 ML INJ ONE (10:30)
[2018-08-14] MEDS ORDERED: ROCURONIUM 50 MG INJ ONE (10:30)
[2018-08-14] MEDS ORDERED: HYDROmorphONE 2 MG/ML SYG ONE (10:31)
[2018-08-14] MEDS ORDERED: DEXAMETHASONE 4 MG/ML 5 ML INJ ONE (10:39)
[2018-08-14] MEDS ORDERED: ONDANSETRON 4 MG INJ ONE (10:39)
[2018-08-14] MEDS ORDERED: SUGAMMADEX SODIUM 200 MG/2 ML VIAL IV ONE (13:40)
--- NOTE | 2018-08-14 13:53 | SIPON ---
Date/Time of Note Date/Time of Note DATE: 08/14/18 TIME: 13:51 Operative Report Preoperative Diagnosis Left colon cancer Postoperative Diagnosis Same Operation/Procedure Performed Resection of the mid and distal transverse colon en bloc with the descending colon and mobilization of the splenic flexure and omentectomy Surgeon see signature line financial assistant Dr Benites Anesthesia: general Estimated blood loss: 250 - 300 ml's Transfusion Required 1 unit of packed red blood cells Specimen Transverse colon and descending colon and omentum Grafts/Implants none Complications none MARJORIE BONNER MD August 14, 2018 13:53
[2018-08-14] MEDS ORDERED: ONDANSETRON 4 MG INJ IV PRN ×2 (14:00→14:30)
[2018-08-14] MEDS ORDERED: ACETAMINOPHEN 1000MG/100ML IV 100 ML IVPB PRN (14:00)
--- NOTE | 2018-08-14 14:08 | PAC ---
Date/Time of Note Date/Time of Note DATE: 08/14/18 TIME: 14:07 Post-Anesthesia Notes Post-Anesthesia Note Last documented vital signs Vital Signs Date Temp Pulse Resp B/P (MAP) Pulse Ox O2 O2 Flow FiO2 Time Delivery Rate 08/14/18 96.6 83 16 137/74 99 Room Air 1406 (95) Activity: WNL Respiratory function: WNL Cardiovascular function: WNL Mental status: Baseline Pain reasonably controlled: Yes Hydration appropriate: Yes Nausea/Vomiting absent: Yes PORFIRIO MANE August 14, 2018 14:08
[2018-08-14] MEDS ORDERED: hydrALAzine 20 MG INJ IV PRN ×2 (14:30→21:00)
[2018-08-14] MEDS ORDERED: HYDROmorphONE 1 MG/5 ML IV SYRINGE IV PRN ×3 (14:30)
[2018-08-14] MEDS ORDERED: METOCLOPRAMIDE 10 MG INJ IV PRN (14:30)
[2018-08-14] MEDS ORDERED: FENTAnyl 50 MCG/ML VIAL IV PRN ×3 (14:30)
[2018-08-14] MEDS ORDERED: MEPERIDINE 25 MG INJ IV PRN (14:30)
[2018-08-14] MEDS ORDERED: DIPHENHYDRAMINE 50 MG INJ IV PRN (14:30)
[2018-08-14] MEDS ORDERED: ALBUTEROL 0.083% (NEB) 2.5 MG/3 ML AMP HHN PRN (14:30)
[2018-08-14] MEDS ORDERED: LABETALOL HCL 20MG INJ IV PRN (14:30)
[2018-08-14] MEDS ORDERED: OXYCODONE/ACETAMINOPHEN (5/325) TAB PO PRN ×2 (14:30)
[2018-08-14] MEDS ORDERED: EPHEDrine 25 MG/5 ML SYG IV PRN (14:30)
[2018-08-14] MEDS: D5W-0.45 NACL + KCL 20 MEQ 1,000 ML IV SCH ×2 (16:28→21:53)
--- NOTE | 2018-08-14 16:58 | OPR ---
DATE OF OPERATION: 08/14/2018 PREOPERATIVE DIAGNOSIS: Left colon cancer. POSTOPERATIVE DIAGNOSIS: Left colon cancer. PROCEDURES: 1. Resection of distal transverse colon and descending colon with mobilization of the splenic flexur e. 2. Omentectomy. ANESTHESIA: General. ANESTHESIOLOGIST: Dr. Camilo. SURGEON: Estevan Hamilton MD OFFICE WORKER: Sher Benites MD INDICATIONS FOR PROCEDURE: The patient is a 57-year-old female with multiple comorbidities including COPD and diabetes mellitus. She underwent colonoscopy and was found to have a cancer near the splen ic flexure at approximately 40 cm. She was counseled as to the need for surgical resection. After m edical clearance was obtained, she consented and was scheduled for surgery. DESCRIPTION OF PROCEDURE: The patient was brought to the operating theater, placed under general ane sthesia and then put into the lithotomy position. A Nichols catheter was placed. The abdomen was then prepped and draped in usual sterile fashion. Generous midline incision was made from a point approx imately 8 cm above the umbilicus to 0.5 cm below. Subcutaneous tissue was dissected with cautery. L inea alba was incised. The abdomen was entered. More superiorly, there have been previously placed mesh due to the hernia. This mesh was transected in the midline and the fascial incision was then op ened for the length of the skin incision. Bookwalter retractor was placed. Excellent exposure was o btained. The left colon was then mobilized by incising the left white line of Toldt. The tumor was approximately 5 cm just distal to the splenic flexure; therefore mobilization continued. The entire splenic flexure was mobilized with combination of the LigaSure device and cautery. Significant vascu lar structures were controlled with suture ligation. Mobilization continued until the mid transverse colon was reached. At this point, the distal transverse colon, splenic flexure and the descending c olon were completely mobilized. Preparations were made for resection. The suitable point of transec tion of the mid transverse colon was identified, cleared of its mesentery and then transected with a PRADEEP stapler. A suitable point of the descending colon beyond the palpable tumor was identified, [place] red of its mesentery and then transected with PRADEEP stapler. The intervening colonic mesentery was the n resected using the impact LigaSure device. The specimen was then removed. It was oriented and int raoperative gross analysis for margins took place. This was performed by attending pathologist, Dr. Hakeem Rizvi. He stated the margins were grossly widely clear. Specimen was then sent for permanent pathologic analysis. The wound was irrigated. Residual bleeding was controlled with either LigaSur e device or cautery. Preparations for anastomosis were made. The mid transverse colon was brought i n close approximation with the remaining portion of the descending colon. A 3-0 silk pop off sutures were then used to approximate the 2 pieces of bowel. Dual enterotomies were performed and anastomos is was created with a PRADEEP stapler at its base. The staple line was inspected. There was no evidence of bleeding. The anastomosis was then completed with a TA stapler. A small amount of residual blee ding and staple line was then oversewn with 3-0 silk pop off sutures. At this point, final irrigatio n and inspection took place. Prior to closure, there was no evidence of ongoing bleeding. The midli ne incision was then closed with #1 looped PDS sutures in running fashion. The subcutaneous tissue w as then irrigated with Betadine and the skin was then reapproximated with skin yandy. The patient tolerated procedure well. The estimated blood loss was approximately 300 mL. The patient received 1 unit of packed red blood cells intraoperatively. There were no complications and after sterile dres sing was applied, the patient was transported in stable condition to recovery room. Dictated By: ESTEVAN HAMILTON MD TL/NTS Conf#: [id number] DID#: [id number] CC: DIPIKA ADAMS MD;*End[facility]*
[2018-08-14] MEDS: PIPER-TAZO 3.375 GM IV (PMX) 100 ML IVPB SCH (22:25)
[2018-08-14] MEDS: INSULIN ASPART [NOVOLOG] 3 ML PEN SC SCH (22:31)
[2018-08-15] VITALS (11 sets, daily range): BP systolic 119–157; BP diastolic 58–82; PULSE 88–103; RESP 18–19
[2018-08-15] MEDS: PANTOPRAZOLE 40 MG INJ IV SCH ×3 (00:51→17:13)
[2018-08-15] MEDS: INSULIN ASPART [NOVOLOG] 3 ML PEN SC SCH ×6 (00:59→21:34)
[2018-08-15] MEDS: INSULIN GLARGINE [LANTus] (100 UNITS/ML) SYG SC SCH ×2 (01:00→21:34)
[2018-08-15] MEDS: HYDROmorphONE 0.2 MG/ML PCA IV SCH ×2 (01:42→13:06)
--- NOTE | 2018-08-15 03:06 | HP ---
DATE OF ADMISSION: 08/14/2018 HISTORY OF PRESENT ILLNESS: The patient is a 57-year old female well known to me from recent admissi on. The patient has history of hypertension, diabetes, COPD, bipolar disorder, diabetic neuropathy, who is also obese with a BMI of 38.2. The patient has colon cancer and was admitted earlier this sat for hemicolectomy; however, her prep was poor and she was admitted and underwent a cardiac workup by Dr. Mata, which was negative for ischemia. The patient was cleared for discharge and was recom mended to come back again for elective surgery. The patient during that admission was also seen by alexandre singh due to a history of bipolar disorder. The patient was brought into the hospital today and underwent a resection of distal transverse colon and descending colon with mobilization of spleni c flexure and omentectomy. The patient's cancer was a new splenic flexure. The patient is being adm itted for further evaluation and management. The patient is being kept n.p.o. and has been started o n IV fluids. The patient denies any chest pain or shortness of breath. No focal weakness. No heada afua or dizziness. No recent fever or chills. No recent rectal bleed. REVIEW OF SYSTEMS: Other than postoperative pain, rest of review of systems was unremarkable. PAST MEDICAL HISTORY: As stated above. PAST SURGICAL HISTORY: The patient is status post bilateral total knee replacement, multiple hernia surgeries, status post cholecystectomy and status post pancreatic cyst removal. ALLERGIES: MORPHINE. SOCIAL HISTORY: Smokes about three cigarettes a day. No alcohol use. FAMILY HISTORY: Noncontributory. PHYSICAL EXAMINATION: GENERAL: The patient is awake, alert, fairly oriented. VITAL SIGNS: Temperature 97.8, pulse 83, respiration 20, blood pressure 144/72, O2 saturation 98% on 2 liters nasal cannula. HEENT: Atraumatic, normocephalic. Conjunctivae normal. Oropharynx clear. NECK: Supple. No mass or thyromegaly. CHEST: Fairly clear. CARDIOVASCULAR: S1, S2 normal. No murmur. ABDOMEN: The patient is status post surgery. EXTREMITIES: No edema. Pedal pulses palpable. SKIN: Without acute rash. NEUROLOGIC: The patient is awake, alert, fairly oriented with no gross focal deficit. LABORATORY DATA: WBC 9.5, hemoglobin 13.7, platelets 493. Chemistry sodium 140, potassium 4.3, BUN 11, creatinine 0.7, glucose 131 on recent imaging; however, today her random blood sugar had been bet ween 200 and low 300s. IMPRESSION: 1. Colon cancer, status post resection of a distal transverse colon and descending colon with mobili zation of splenic flexure and omentectomy. 2. Diabetes. 3. Hypertension. 4. Preserved ejection fraction at 60%. 5. Chronic obstructive pulmonary disease. 6. Bipolar disorder. PLAN: The patient will be admitted on telemetry floor. The patient has been kept n.p.o. and has bee n started on IV fluid. The patient will receive IV Zosyn as per protocol. The patient did receive 1 5 units of Humulin R since this morning. We will start her on sliding scale and also will give her a long-acting insulin. The patient has insulin resistance and prior to surgery was on 75 units of Yo tus and 12 to 24 units of premeal insulin. For hypertension, we will add IV hydralazine on p.r.n. ba sis since she is n.p.o. We will add DuoNeb or Incruse if it is available. For DVT prophylaxis, the patient will be placed on SCDs. Further recommendation will depend on patient's hospital course. We will start the patient's psych medication as soon as she is able to take p.o. The patient prior to admission had been taking Seroquel and Cymbalta. Dictated By: DIPIKA ADAMS MD AB/NTS Conf#: [id number] DID#: [id number] CC: ROSEMARY VELEZ MD; MARJORIE BONNER MD; MELINDA DIEGO MD; WENDY COULTER MD;*EndCC*
[2018-08-15] MEDS: PIPER-TAZO 3.375 GM IV (PMX) 100 ML IVPB SCH ×3 (05:31→22:25)
--- NOTE | 2018-08-15 08:21 | PN ---
Date/Time of Note Date/Time of Note DATE: 08/15/18 TIME: 08:17 Assessment/Plan VTE Prophylaxis Risk score (from [facility])>0 risk: 7 SCD applied (from [facility]): Yes SCD contraindicated: other Pharmacological prophylaxis: other Lines/Catheters IV Catheter Type (from [facility] [place]): Peripheral IV Urinary Cath still in place: Yes Reason Cath still needed: urinary retention Assessment/Plan Assessment/Plan 1. Colon cancer, status post resection of a distal transverse colon and descending colon with mobilization of splenic flexure and omentectomy. - per sx - n.p.o. and has been started on IV fluid - IV Zosyn as per protocol. 2. Diabetes.- Hyperglycemia- will get Endo consult- Dr Fink notified . - cont to monitor Blood sugar 3. Hypertension- IV hydralazine on p.r.n. basis 4. Preserved ejection fraction at 60%. 5. Chronic obstructive pulmonary disease. - DuoNeb 6. Bipolar disorder. 7. DVT prophylaxis, the patient will be placed on SCDs Further recommendation will depend on patient's hospital course. We will start the patient's psych medication as soon as she is able to take p.o. The patient prior to admission had been taking Seroquel and Cymbalta. Dw Dr Osborne Result Diagram: 08/15/18 0040 Results 24hrs Laboratory Tests Test 08/14/18 09:10 08/14/18 10:22 08/14/18 14:06 08/14/18 22:02 Bedside Glucose 327 H 329 H 291 H 406 *H Test 08/15/18 00:40 08/15/18 00:45 08/15/18 05:29 White Blood Count 20.6 #H Red Blood Count 4.55 Hemoglobin 13.6 Hematocrit 41.0 Mean Corpuscular 90.1 Volume Mean Corpuscular 29.9 Hemoglobin Mean Corpuscular 33.2 Hemoglobin Concent Red Cell 13.6 Distribution Width Platelet Count 346 # Mean Platelet Volume 10.9 H Immature 0.400 Granulocytes % Neutrophils % 91.3 H Lymphocytes % 4.4 L Monocytes % 3.6 Eosinophils % 0.0 Basophils % 0.3 Nucleated Red Blood 0.0 Cells % Immature 0.080 H Granulocytes # Neutrophils # 18.8 H Lymphocytes # 0.9 Monocytes # 0.8 Eosinophils # 0.0 Basophils # 0.1 Nucleated Red Blood 0.0 Cells # Bedside Glucose 387 H 288 H Subjective 24 Hr Interval Summary Constitutional: requiring IVF Eyes: no complaints ENT: no complaints Respiratory: no complaints Cardiovascular: no complaints Gastrointestinal: pain, other Exam/Review of Systems Exam Vitals Vital Signs Date Temp Pulse Resp B/P (MAP) Pulse Ox O2 O2 Flow FiO2 Time Delivery Rate 08/15/18 2.0 04:29 08/15/18 94 04:00 08/15/18 98.4 18 119/58 99 Nasal 03:53 (78) Cannula Intake and Output 08/14/18 08/14/18 08/15/18 1515:00 23:00 07:00 IntakeIntake Total 2350 ml 0 ml OutputOutput Total 400 ml 550 ml 1200 ml BalanceBalance 1950 ml -550 ml -1200 ml Constitutional: alert, well developed Psych: nl mood/affect Eyes: nl lids, nl sclera ENMT: nl external ears & nose Respiratory: clear to auscultation Cardiovascular: nl pulses, other (s1s2) Gastrointestinal: soft, non-tender, other (NGT note) Extremities: normal pulses Neurological: other Skin: nl turgor Lymph: nontender Results Results 24hrs Laboratory Tests Test 08/14/18 09:10 08/14/18 10:22 08/14/18 14:06 08/14/18 22:02 Bedside Glucose 327 H 329 H 291 H 406 *H Test 08/15/18 00:40 08/15/18 00:45 08/15/18 05:29 White Blood Count 20.6 #H Red Blood Count 4.55 Hemoglobin 13.6 Hematocrit 41.0 Mean Corpuscular 90.1 Volume Mean Corpuscular 29.9 Hemoglobin Mean Corpuscular 33.2 Hemoglobin Concent Red Cell 13.6 Distribution Width Platelet Count 346 # Mean Platelet Volume 10.9 H Immature 0.400 Granulocytes % Neutrophils % 91.3 H Lymphocytes % 4.4 L Monocytes % 3.6 Eosinophils % 0.0 Basophils % 0.3 Nucleated Red Blood 0.0 Cells % Immature 0.080 H Granulocytes # Neutrophils # 18.8 H Lymphocytes # 0.9 Monocytes # 0.8 Eosinophils # 0.0 Basophils # 0.1 Nucleated Red Blood 0.0 Cells # Bedside Glucose 387 H 288 H Medications Medication Current Medications Miscellaneous Information 1 ea NOTE XX ; Start 5/30/19 at 10:00 Glucose (Glutose) 15 gm Q15M PRN PO DECREASED GLUCOSE; Start 08/14/18 at 10:00 Glucose (Glutose) 22.5 gm Q15M PRN PO DECREASED GLUCOSE; Start 08/14/18 at 10:00 Dextrose (D50w Syringe) 25 ml Q15M PRN IV DECREASED GLUCOSE; Start 08/14/18 at 10:00 Dextrose (D50w Syringe) 50 ml Q15M PRN IV DECREASED GLUCOSE; Start 08/14/18 at 10:00 Glucagon (Glucagen) 1 mg Q15M PRN IM DECREASED GLUCOSE; Start 08/14/18 at 10:00 Glucose (Glutose) 15 gm Q15M PRN BUCCAL DECREASED GLUCOSE; Start 08/14/18 at 10:00 Ondansetron HCl (Zofran Inj) 4 mg Q6H PRN IV NAUSEA AND/OR VOMITING; Start 08/14/18 at 14:00 Potassium Chloride/Dextrose/ Sod Cl 1,000 ml @ 100 mls/hr Q10H IV Last administered on 08/14/18at 16:28; Admin Dose 125 MLS/HR; Start 08/14/18 at 13:53 Acetaminophen 100 ml @ 400 mls/hr Q6H PRN IVPB PAIN; Start 08/14/18 at 14:00; Stop 08/15/18 at 13:59 Piperacillin Sod/ Tazobactam Sod 100 ml @ 200 mls/hr Q8 IVPB Last administered on 08/15/18at 05:31; Admin Dose 200 MLS/HR; Start 08/14/18 at 22:00 Insulin Aspart (Novolog Insulin Pen) NOVOLOG *MODERATE* ALGORI... Q4 SC Last administered on 08/15/18at 05:45; Admin Dose 8 UNIT; Start 08/14/18 at 21:00 Hydralazine HCl (Apresoline) 20 mg Q6H PRN IV bp>160/95; Start 08/14/18 at 21:00 Hydromorphone HCl (Dilaudid [employer]) 0.5 MG/HR CONTINUOUS RATE ... Q4PCA IV Last administered on 08/15/18at 01:42; Admin Dose 0.5 MG; Start 08/14/18 at 22:00 Insulin Glargine (Lantus) 30 units DAILY@1999 SC Last administered on 08/15/18at 01:00; Admin Dose 30 UNITS; Start 08/14/18 at 23:00 Pantoprazole (Protonix Iv) 40 mg BID@06,18 IV Last administered on 08/15/18at 0 5:31; Admin Dose 40 MG; Start 08/15/18 at 01:00 GABINO CALERO August 15, 2018 08:21
[2018-08-15] MEDS: D5W-0.45 NACL + KCL 20 MEQ 1,000 ML IV SCH ×3 (08:25→23:57)
--- NOTE | 2018-08-15 18:41 | PN ---
DATE: 08/15/2018 Postop day #1, status post laparotomy, left colon resection for cancer of the splenic flexure and end-to-end anastomosis and partial omentectomy. SUBJECTIVE: She complains of thirst and wanted to drink water, so we let her to have some ice chips. OBJECTIVE: GENERAL: Clinically, the patient is alert, awake, oriented, no acute distress. NG tube is in place, but is not connected to the suction. The nurse stated that because it was some bloody drainage, they called the MD and he ordered to discontinue the suctioning of the NG tube. VITAL SIGNS: Temperature maximum 98.5, heart rate 92, respiration 18, blood pressure 130/73, saturation 94% on room air. HEART: Regular. LUNGS: Clear. Decreased breathing sound at bases. ABDOMEN: Dressing is intact. Nondistended. Bowel sound hypoactive. Nichols catheter is in place. LABORATORY DATA: WBC 23,000, differential 86% INTAKE AND OUTPUT: Urine output has been 2050 mL from the time of operation until today morning. The patient has an NG tube, but unfortunately, they have not recorded and they have not mention the amount of drainage in the computer. I irrigated. NG tube with cold saline and adjusted to the intermittent suction and start functioning and first, there was semi-bloody drainage, but gradually after irrigation with saline, it became very slightly blood-tinged. I assume this is from the traumatic insertion of the NG tube at the time of operation, probably. ASSESSMENT AND PLAN: Postoperative day #1. The patient is stable so far. We are going to increase the IV fluid to 150 mL per hour. Encourage incentive spirometry, get out of bed if possible, connect NG tube to intermittent suction. The patient can use ice chips 1 cup q.8 hours at most. Dictated By: LEODAN TREJO MD PS/NTS Conf#: [id number] DID#: [id number] TATE
[2018-08-15] MEDS ORDERED: INSULIN GLARGINE [LANTus] (100 UNITS/ML) SYG SC SCH (20:00)
[2018-08-15] MEDS: FAMOTIDINE 20 MG INJ IV SCH (21:06)
[2018-08-16] VITALS (10 sets, daily range): BP systolic 115–148; BP diastolic 62–72; PULSE 16–101; RESP 18–20
[2018-08-16] MEDS: HYDROmorphONE 0.2 MG/ML PCA IV SCH ×3 (00:09→22:24)
[2018-08-16] MEDS: INSULIN ASPART [NOVOLOG] 3 ML PEN SC SCH ×6 (01:22→20:25)
[2018-08-16] MEDS: PIPER-TAZO 3.375 GM IV (PMX) 100 ML IVPB SCH ×3 (05:28→22:27)
[2018-08-16] MEDS: D5W-0.45 NACL + KCL 20 MEQ 1,000 ML IV SCH ×4 (06:56→22:27)
[2018-08-16] MEDS: FAMOTIDINE 20 MG INJ IV SCH ×2 (08:14→20:19)
--- NOTE | 2018-08-16 11:31 | PN ---
Date/Time of Note Date/Time of Note DATE: 08/16/18 TIME: 11:31 Assessment/Plan VTE Prophylaxis Risk score (from [facility])>0 risk: 8 [place] [facility] Yes Pharmacological prophylaxis: LMWH Lines/Catheters [facility] (from [facility]): Peripheral IV Urinary Cath still in place: Yes Reason Cath still needed: skin wounds contaminated by urine Assessment/Plan Hospital Course 1. Colon cancer, status post resection of a distal transverse colon and descending colon with mobilization of splenic flexure and omentectomy. - per sx - n.p.o. and has been started on IV fluid - IV Zosyn as per protocol. 2. Diabetes. 3. Hypertension- IV hydralazine on p.r.n. basis 4. Preserved ejection fraction at 60%. 5. Chronic obstructive pulmonary disease. - DuoNeb 6. Bipolar disorder. 7. DVT prophylaxis, the patient will be placed on SCDs Result Diagram: 08/16/18 0843 08/16/18 0843 Results 24hrs Laboratory Tests Test 08/15/18 12:17 08/15/18 16:38 08/15/18 20:50 08/15/18 21:03 Bedside Glucose 234 H 268 H 274 H Hemoglobin 11.9 L Hematocrit 36.0 L Test 08/16/18 01:16 08/16/18 05:27 08/16/18 08:10 08/16/18 08:43 Bedside Glucose 223 H 167 160 White Blood Count 20.4 H Red Blood Count 3.75 L Hemoglobin 11.2 L Hematocrit 34.4 L Mean Corpuscular 91.7 Volume Mean Corpuscular 29.9 Hemoglobin Mean Corpuscular 32.6 Hemoglobin Concent Red Cell 14.3 Distribution Width Platelet Count 275 Mean Platelet Volume 11.2 H Immature 0.900 H Granulocytes % Neutrophils % 80.3 H Lymphocytes % 11.0 L Monocytes % 7.3 Eosinophils % 0.2 Basophils % 0.3 Nucleated Red Blood 0.0 Cells % Immature 0.180 H Granulocytes # Neutrophils # 16.4 H Lymphocytes # 2.2 Monocytes # 1.5 H Eosinophils # 0.0 Basophils # 0.1 Nucleated Red Blood 0.0 Cells # Prothrombin Time 13.0 Prothrombin Time 1.0 Ratio INR International 0.97 Normalized Ratio Activated 31.0 Partial Thromboplast Time Sodium Level 135 Potassium Level 4.4 Chloride Level 105 Carbon Dioxide Level 24 Anion Gap 6 Blood Urea Nitrogen 16 Creatinine 0.62 Est Glomerular > 60 Filtrat Rate mL/min Glucose Level 162 Calcium Level 8.3 L Phosphorus Level 2.5 Magnesium Level 2.0 Subjective 24 Hr Interval Summary Free Text/Dictation Patient complains of abdominal pain Exam/Review of Systems Exam Vitals Vital Signs Date Temp Pulse Resp B/P (MAP) Pulse Ox O2 O2 Flow FiO2 Time Delivery Rate 08/16/18 97.9 89 19 148/66 95 11:01 (93) 08/16/18 Nasal 2.0 08:25 Cannula Intake and Output 08/15/18 08/15/18 08/16/18 1515:00 23:00 07:00 IntakeIntake Total 100 ml 330 ml 100 ml OutputOutput Total 900 ml 1000 ml 750 ml BalanceBalance -800 ml -670 ml -650 ml Constitutional: well developed Head: normocephalic, atraumatic Neck: supple Respiratory: diminished breath sounds Cardiovascular: regular rate and rhythm Gastrointestinal: soft, non-tender Extremities: normal pulses Results Results 24hrs Laboratory Tests Test 08/15/18 12:17 08/15/18 16:38 08/15/18 20:50 08/15/18 21:03 Bedside Glucose 234 H 268 H 274 H Hemoglobin 11.9 L Hematocrit 36.0 L Test 08/16/18 01:16 08/16/18 05:27 08/16/18 08:10 08/16/18 08:43 Bedside Glucose 223 H 167 160 White Blood Count 20.4 H Red Blood Count 3.75 L Hemoglobin 11.2 L Hematocrit 34.4 L Mean Corpuscular 91.7 Volume Mean Corpuscular 29.9 Hemoglobin Mean Corpuscular 32.6 Hemoglobin Concent Red Cell 14.3 Distribution Width Platelet Count 275 Mean Platelet Volume 11.2 H Immature 0.900 H Granulocytes % Neutrophils % 80.3 H Lymphocytes % 11.0 L Monocytes % 7.3 Eosinophils % 0.2 Basophils % 0.3 Nucleated Red Blood 0.0 Cells % Immature 0.180 H Granulocytes # Neutrophils # 16.4 H Lymphocytes # 2.2 Monocytes # 1.5 H Eosinophils # 0.0 Basophils # 0.1 Nucleated Red Blood 0.0 Cells # Prothrombin Time 13.0 Prothrombin Time 1.0 Ratio INR International 0.97 Normalized Ratio Activated 31.0 Partial Thromboplast Time Sodium Level 135 Potassium Level 4.4 Chloride Level 105 Carbon Dioxide Level 24 Anion Gap 6 Blood Urea Nitrogen 16 Creatinine 0.62 Est Glomerular > 60 Filtrat Rate mL/min Glucose Level 162 Calcium Level 8.3 L Phosphorus Level 2.5 Magnesium Level 2.0 Medications Medication Current Medications Miscellaneous Information 1 ea NOTE XX ; Start 08/14/18 at 10:00 Glucose (Glutose) 15 gm Q15M PRN PO DECREASED GLUCOSE; Start 08/14/18 at 10:00 Glucose (Glutose) 22.5 gm Q15M PRN PO DECREASED GLUCOSE; Start 08/14/18 at 10:00 Dextrose (D50w Syringe) 25 ml Q15M PRN IV DECREASED GLUCOSE; Start 08/14/18 at 10:00 Dextrose (D50w Syringe) 50 ml Q15M PRN IV DECREASED GLUCOSE; Start 08/14/18 at 10:00 Glucagon (Glucagen) 1 mg Q15M PRN IM DECREASED GLUCOSE; Start 08/14/18 at 10:00 Glucose (Glutose) 15 gm Q15M PRN BUCCAL DECREASED GLUCOSE; Start 08/14/18 at 10:00 Ondansetron HCl (Zofran Inj) 4 mg Q6H PRN IV NAUSEA AND/OR VOMITING; Start 08/14/18 at 14:00 Potassium Chloride/Dextrose/ Sod Cl 1,000 ml @ 150 mls/hr Q6H40M IV Last administered on 08/16/18at 06:56; Admin Dose 150 MLS/HR; Start 08/14/18 at 13:53 Piperacillin Sod/ Tazobactam Sod 100 ml @ 200 mls/hr Q8 IVPB Last administered on 08/16/18at 05:28; Admin Dose 200 MLS/HR; Start 08/14/18 at 22:00 Insulin Aspart (Novolog Insulin Pen) NOVOLOG *MODERATE* ALGORI... Q4 SC Last administered on 08/16/18at 08:19; Admin Dose 2 UNIT; Start 08/14/18 at 21:00 Hydralazine HCl (Apresoline) 20 mg Q6H PRN IV bp>160/95; Start 08/14/18 at 21:00 Hydromorphone HCl (Dilaudid [employer]OC[employer]) 0.5 MG/HR CONTINUOUS RATE ... Q4PCA IV Last administered on 08/16/18at 00:09; Admin Dose 0.5 MG; Start 08/14/18 at 22:00 Insulin Glargine (Lantus) 30 units DAILY@2000 SC Last administered on 08/15/18at 21:34; Admin Dose 30 UNITS; Start 08/14/18 at 23:00 Famotidine (Pepcid Iv) 20 mg BID IV Last administered on 08/16/18at 08:14; Admin Dose 20 MG; Start 08/15/18 at 21:00 SONI ZAMORA Aug 16, 2018 11:31
[2018-08-16] MEDS ORDERED: ALBUTEROL/IPRATROPIUM (NEB) 3 ML AMP HHN PRN (16:30)
[2018-08-16] MEDS: CEPASTAT LOZENGE MT PRN (17:07)
[2018-08-16] MEDS: INSULIN GLARGINE [LANTus] (100 UNITS/ML) SYG SC SCH (20:25)
--- NOTE | 2018-08-16 21:37 | PN ---
DATE: 08/16/2018 Postop day #2 status post laparotomy, left colon cancer resection and mobilization of the splenic flexure. SUBJECTIVE: Complains of sore throat. OBJECTIVE: GENERAL: Awake, alert, oriented. VITAL SIGNS: Temperature 97.9, heart rate 89, respirations 19, blood pressure 148/56, saturation 95% on 2 liter nasal cannula. LABORATORY DATA: WBC 20,000 with 80% segmented, hemoglobin 11.2, hematocrit 34.4. Chemistry: Sodium, potassium, BUN, creatinine within normal limits. I and O's: Urine output in the past 24 hours 1100. NG tube drainage unfortunately again has not been charted. Clinically, the patient was examined. HEART: Regular. LUNGS: Decreased breathing sound at bases. ABDOMEN: Not distended. Dressing is intact. Bowel sounds very hypoactive. NG tube in place. It was not functioning, so the machine manipulated, now starts functioning, more bilious fluid was aspirated. irrigated with cold saline, was tested and is clear now. PLAN: Continue NG tube with intermittent suctioning. Keep Nichols catheter in place. Get out of bed and walk around with help. Encourage incentive spirometry. We will continue to follow. Dictated By: LEODAN TREJO MD PS/NTS Conf#: [id number] DID#: [id number] CC: MARJORIE BONNER MD;*EndCC* MTDD
[2018-08-17] VITALS (10 sets, daily range): BP systolic 127–151; BP diastolic 58–73; PULSE 84–96; RESP 18–19
[2018-08-17] MEDS: CEPASTAT LOZENGE MT PRN ×2 (01:14→15:38)
[2018-08-17] MEDS: INSULIN ASPART [NOVOLOG] 3 ML PEN SC SCH ×6 (01:15→21:00)
[2018-08-17] MEDS: PIPER-TAZO 3.375 GM IV (PMX) 100 ML IVPB SCH ×3 (05:38→22:19)
[2018-08-17] MEDS: D5W-0.45 NACL + KCL 20 MEQ 1,000 ML IV SCH ×2 (05:38→18:15)
[2018-08-17] MEDS: LORAZEPAM 2 MG INJ IV PRN (06:54)
[2018-08-17] MEDS: FAMOTIDINE 20 MG INJ IV SCH ×2 (09:02→20:45)
[2018-08-17] MEDS: HYDROmorphONE 0.2 MG/ML PCA IV SCH ×2 (10:50→15:36)
--- NOTE | 2018-08-17 10:54 | PN ---
Date/Time of Note Date/Time of Note DATE: 08/17/18 TIME: 10:54 Assessment/Plan VTE Prophylaxis Risk score (from Ns)>0 risk: 9 SCD applied (from [facility] [place]): Yes Pharmacological prophylaxis: LMWH Lines/Catheters IV Catheter Type (from [facility]): Peripheral IV Urinary Cath still in place: Yes Reason Cath still needed: skin wounds contaminated by urine Assessment/Plan Hospital Course 1. Colon cancer, status post resection of a distal transverse colon and descending colon with mobilization of splenic flexure and omentectomy. - per sx - n.p.o. and has been started on IV fluid - IV Zosyn as per protocol. 2. Diabetes. 3. Hypertension- IV hydralazine on p.r.n. basis 4. Preserved ejection fraction at 60%. 5. Chronic obstructive pulmonary disease. - DuoNeb 6. Bipolar disorder. 7. DVT prophylaxis, the patient will be placed on SCDs Result Diagram: 08/17/1848 08/17/18 0948 Results 24hrs Laboratory Tests Test 08/16/18 11:51 08/16/18 17:11 08/16/18 20:15 08/16/18 20:58 Bedside Glucose 187 170 203 Hemoglobin 11.3 L Hematocrit 34.9 L Test 08/17/18 01:06 08/17/18 05:36 08/17/18 08:59 08/17/18 09:48 Bedside Glucose 172 161 129 White Blood Count 15.5 #H Red Blood Count 3.72 L Hemoglobin 11.2 L Hematocrit 34.3 L Mean Corpuscular Volume 92.2 Mean Corpuscular 30.1 Hemoglobin Mean Corpuscular 32.7 Hemoglobin Concent Red Cell Distribution 13.8 Width Platelet Count 301 Mean Platelet Volume 11.2 H Immature Granulocytes % 1.000 H Neutrophils % 73.3 Lymphocytes % 15.3 Monocytes % 8.0 Eosinophils % 1.8 Basophils % 0.6 Nucleated Red Blood 0.0 Cells % Immature Granulocytes # 0.150 H Neutrophils # 11.3 H Lymphocytes # 2.4 Monocytes # 1.2 H Eosinophils # 0.3 Basophils # 0.1 Nucleated Red Blood 0.0 Cells # Sodium Level 137 Potassium Level 4.5 Chloride Level 103 Carbon Dioxide Level 28 Anion Gap 6 Blood Urea Nitrogen 6 #L Creatinine 0.63 Est Glomerular Filtrat > 60 Rate mL/min Glucose Level 150 Calcium Level 8.8 Phosphorus Level 2.6 Magnesium Level 2.0 Subjective 24 Hr Interval Summary Free Text/Dictation Patient continues to have pain in area of surgery Exam/Review of Systems Exam Vitals Vital Signs Date Temp Pulse Resp B/P (MAP) Pulse Ox O2 O2 Flow FiO2 Time Delivery Rate 08/17/18 96 08:01 08/17/18 Nasal 4.0 07:35 Cannula 08/17/18 98.9 18 151/72 93 07:33 (98) Intake and Output 08/16/18 08/16/18 08/17/18 1515:00 23:00 07:00 IntakeIntake Total 1000 ml 100 ml OutputOutput Total 1600 ml BalanceBalance 1000 ml -1500 ml Constitutional: well developed Head: normocephalic, atraumatic Neck: supple Respiratory: diminished breath sounds Cardiovascular: regular rate and rhythm Gastrointestinal: soft, non-tender Extremities: normal pulses Results Results 24hrs Laboratory Tests Test 08/16/18 11:51 08/16/18 17:11 08/16/18 20:15 08/16/18 20:58 Bedside Glucose 187 170 203 Hemoglobin 11.3 L Hematocrit 34.9 L Test 08/17/18 01:06 08/17/18 05:36 08/17/18 08:59 08/17/18 09:48 Bedside Glucose 172 161 129 White Blood Count 15.5 #H Red Blood Count 3.72 L Hemoglobin 11.2 L Hematocrit 34.3 L Mean Corpuscular Volume 92.2 Mean Corpuscular 30.1 Hemoglobin Mean Corpuscular 32.7 Hemoglobin Concent Red Cell Distribution 13.8 Width Platelet Count 301 Mean Platelet Volume 11.2 H Immature Granulocytes % 1.000 H Neutrophils % 73.3 Lymphocytes % 15.3 Monocytes % 8.0 Eosinophils % 1.8 Basophils % 0.6 Nucleated Red Blood 0.0 Cells % Immature Granulocytes # 0.150 H Neutrophils # 11.3 H Lymphocytes # 2.4 Monocytes # 1.2 H Eosinophils # 0.3 Basophils # 0.1 Nucleated Red Blood 0.0 Cells # Sodium Level 137 Potassium Level 4.5 Chloride Level 103 Carbon Dioxide Level 28 Anion Gap 6 Blood Urea Nitrogen 6 #L Creatinine 0.63 Est Glomerular Filtrat > 60 Rate mL/min Glucose Level 150 Calcium Level 8.8 Phosphorus Level 2.6 Magnesium Level 2.0 Medications Medication Current Medications Miscellaneous Information 1 ea NOTE XX ; Start 08/14/18 at 10:00 Glucose (Glutose) 15 gm Q15M PRN PO DECREASED GLUCOSE; Start 08/14/18 at 10:00 Glucose (Glutose) 22.5 gm Q15M PRN PO DECREASED GLUCOSE; Start 08/14/18 at 10:00 Dextrose (D50w Syringe) 25 ml Q15M PRN IV DECREASED GLUCOSE; Start 08/14/18 at 10:00 Dextrose (D50w Syringe) 50 ml Q15M PRN IV DECREASED GLUCOSE; Start 08/14/18 at 10:00 Glucagon (Glucagen) 1 mg Q15M PRN IM DECREASED GLUCOSE; Start 08/14/18 at 10:00 Glucose (Glutose) 15 gm Q15M PRN BUCCAL DECREASED GLUCOSE; Start 08/14/18 at 10:00 Ondansetron HCl (Zofran Inj) 4 mg Q6H PRN IV NAUSEA AND/OR VOMITING; Start 08/14/18 at 14:00 Potassium Chloride/Dextrose/ Sod Cl 1,000 ml @ 150 mls/hr Q6H40M IV Last administered on 08/17/18at 05:38; Admin Dose 150 MLS/HR; Start 08/14/18 at 13:53 Piperacillin Sod/ Tazobactam Sod 100 ml @ 200 mls/hr Q8 IVPB Last administered on 08/17/18at 05:38; Admin Dose 200 MLS/HR; Start 08/14/18 at 22:00 Insulin Aspart (Novolog Insulin Pen) NOVOLOG *MODERATE* ALGORI... Q4 SC Last administered on 08/17/18at 05:43; Admin Dose 2 UNIT; Start 08/14/18 at 21:00 Hydralazine HCl (Apresoline) 20 mg Q6H PRN IV bp>160/95; Start 08/14/18 at 21:00 Hydromorphone HCl (Dilaudid ADMINISTRATIVE ASSISTANT DATA ENTRY) 0.5 MG/HR CONTINUOUS RATE ... Q4PCA IV Last administered on 08/17/18at 10:50; Admin Dose 6 MG; Start 08/14/18 at 22:00 Insulin Glargine (Lantus) 30 units DAILY@2000 SC Last administered on 08/16/18at 20:25; Admin Dose 30 UNITS; Start 08/14/18 at 23:00 Famotidine (Pepcid Iv) 20 mg BID IV Last administered on 08/17/18at 09:02; Admin Dose 20 MG; Start 08/15/18 at 21:00 Phenol (Cepastat Lozenge) 1 lozenge Q4H PRN MT SORE THROAT Last administered on 08/17/18at 01:14; Admin Dose 1 LOZENGE; Start 08/16/18 at 15:00 Albuterol/ Ipratropium (Duoneb) 3 ml Q4H RESP THERAPY PRN HHN SHORTNESS OF BREATH Last administered on 08/16/18at 16:45; Admin Dose 3 ML; Start 08/16/18 at 16:30 Lorazepam (Ativan) 1 mg Q6H PRN IV ANXIETY Last administered on 08/17/18at 06:54; Admin Dose 1 MG; Start 08/17/18 at 07:00 SONI ZAMORA Aug 17, 2018 10:54
[2018-08-17] MEDS: KETOROLAC 30 MG INJ IV SCH ×2 (15:39→22:19)
--- NOTE | 2018-08-17 16:38 | PN ---
DATE: 08/17/2018 Postop day #3 status post laparotomy, left colon cancer resection with anastomosis. SUBJECTIVE: The patient has been complaining too much from the position of the NG tube. The nurse s tates that the patient has been passing gas. The patient also states that has been passing moderate amount of gas. OBJECTIVE: GENERAL: Awake, alert, oriented, sleepy because she has received some Ativan today. VITAL SIGNS: Temperature 98.9, heart rate 87, respiration 18, blood pressure 143/70, saturation 98% on 4 L nasal cannula. LABORATORY DATA: WBC 15,500 with 73% segmented, hemoglobin 11.2, hematocrit 34.3. Chemistry: Sodiu m and potassium normal. BUN and creatinine normal. CLINICAL EXAMINATION: HEART: Regular. LUNGS: Slight decreased breathing sound at bases. ABDOMEN: Soft. Bowel sound is 2+ or 3+/4+. No rigidity, no rebound. EXTREMITIES: Legs no calf tenderness. ASSESSMENT: NG tube has been draining some fluid. The color right now in the tubing is yellowish, i s not greenish any more. PLAN: Considering that the patient has been suffering from NG tube and complaining of sore throat an d also has passed gas, I am going to remove the NG tube, but keep the patient n.p.o. except ice chips 1 cup q.12h. Encourage incentive spirometry. The patient is supposed to be out of bed and walk aliyah und with the help of PT, but they have not shown up yet. Dictated By: LEODAN TREJO MD PS/NTS Conf#: [id number] DID#: [id number] CC: MARJORIE BONNER MD;*EndCC*
[2018-08-17] MEDS: INSULIN GLARGINE [LANTus] (100 UNITS/ML) SYG SC SCH (21:01)
[2018-08-18] VITALS (11 sets, daily range): BP systolic 124–143; BP diastolic 60–85; PULSE 68–90; RESP 16–20
[2018-08-18] MEDS: INSULIN ASPART [NOVOLOG] 3 ML PEN SC SCH ×6 (01:00→20:23)
[2018-08-18] MEDS: D5W-0.45 NACL + KCL 20 MEQ 1,000 ML IV SCH ×3 (02:00→20:30)
[2018-08-18] MEDS: KETOROLAC 30 MG INJ IV SCH ×4 (03:28→20:23)
[2018-08-18] MEDS: PIPER-TAZO 3.375 GM IV (PMX) 100 ML IVPB SCH ×3 (05:51→20:30)
[2018-08-18] MEDS: FAMOTIDINE 20 MG INJ IV SCH ×2 (08:41→20:22)
--- NOTE | 2018-08-18 16:02 | PN ---
DATE: 08/18/2018 Postop day #4 status post laparotomy, left colon resection for cancer. SUBJECTIVE: No specific complaints has passed gas. No bowel movement. No nausea. No vomiting. OBJECTIVE: VITAL SIGNS: Temperature 98.1, heart rate 72, respirations 17, blood pressure 143/74, saturation 99% on 3 L nasal cannula. HEART: Clinically, heart is regular. LUNGS: Decreased breathing sound bilaterally. Incentive spirometry used by the patient but tidal volume is very low, about 700 to 800 mL. ABDOMEN: Soft but epigastric area and left subcostal are very distended and protruded. It is tympanitic and tender. I think it is either colon distended or stomach. LABORATORY DATA: Hemoglobin, hematocrit are stable. CBC yesterday: WBC was 16,500 with 73% segmented. PLAN: We are going to get KUB to find out which one is distended. The patient's NG tube was discontinued yesterday because it was bothering the patient a lot. We are going to get a CBC and stat electrolytes today as well. Per nurse, patient has been out of bed and walked a little bit in the hallway. Continue current care. Keep the Nichols catheter. Encourage incentive spirometry. Encourage getting out of bed and walk around. Get a KUB. Dictated By: LEODAN TREJO MD PS/NTS Conf#: [id number] DID#: [id number] CC: MARJORIE BONNER MD;*EndCC* MTDD
--- NOTE | 2018-08-18 16:56 | PN ---
Date/Time of Note Date/Time of Note DATE: 08/18/18 TIME: 16:55 Assessment/Plan VTE Prophylaxis Risk score (from Ns)>0 risk: 10 SCD applied (from Ns): Yes Pharmacological prophylaxis: NA/contraindicated Pharm contraindication: surgical contra Lines/Catheters [facility] Per[facility] IV Central line still needed: Yes Urinary Cath still in place: Yes Reason Cath still needed: urinary retention Assessment/Plan Hospital Course Patient is awake alert, complains of being hungry asking to progress her diet. Pain is adequately controlled, patient denies any nausea vomiting Assessment/Plan - Colon cancer, status post resection of a distal transverse colon and descending colon with mobilization of splenic flexure and omentectomy by Dr. Hamilton on 08/14/2018. Continue IV fluids and postoperative antibiotics. 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 Advance diet per surgery. - Diabetes. Continue Lantus and NovoLog. - Hypertension. - Preserved ejection fraction at 60%. - Chronic obstructive pulmonary disease. Continue breathing treatment as nee ded. - Bipolar disorder. - Obesity with BMI of 38.2 Further recommendations based on clinical course. Plan of care discussed with Dr. Osborne. Result Diagram: 08/18/18 0803 08/18/18 1408 Results 24hrs Laboratory Tests Test 08/17/18 18:17 08/17/18 20:43 08/17/18 21:14 08/18/18 01:20 Bedside Glucose 126 166 112 Hemoglobin 10.8 L Hematocrit 32.8 L Test 08/18/18 05:15 08/18/18 07:53 08/18/18 08:03 08/18/18 11:44 Bedside Glucose 94 109 129 Hemoglobin 10.9 L Hematocrit 33.5 L Test 08/18/18 14:08 08/18/18 16:50 White Blood Count Pending Red Blood Count Pending Hemoglobin Pending Hematocrit Pending Mean Corpuscular Volume Pending Mean Corpuscular Pending Hemoglobin Mean Corpuscular Pending Hemoglobin Concent Red Cell Distribution Pending Width Platelet Count Pending Mean Platelet Volume Pending Sodium Level 138 Potassium Level 4.3 Chloride Level 108 Carbon Dioxide Level 25 Anion Gap 5 Blood Urea Nitrogen 7 Creatinine 0.56 Est Glomerular Filtrat > 60 Rate mL/min Glucose Level 132 Calcium Level 8.6 Bedside Glucose 126 Exam/Review of Systems Exam Vitals Vital Signs Date Temp Pulse Resp B/P (MAP) Pulse Ox O2 O2 Flow FiO2 Time Delivery Rate 08/18/18 74 16:01 08/18/18 3.0 15:55 08/18/18 97.9 16 124/69 98 15:05 (87) 08/18/18 Nasal 08:00 Cannula Intake and Output 08/17/18 08/17/18 08/18/18 1515:00 23:00 07:00 IntakeIntake Total 100 ml OutputOutput Total 1350 ml 2250 ml 1450 ml BalanceBalance -1350 ml -2250 ml -1350 ml Constitutional: alert, oriented Head: normocephalic Respiratory: clear to auscultation Cardiovascular: regular rate and rhythm Gastrointestinal: soft, other (Status post surgery) Musculoskeletal: nl extremities to inspection Extremities: normal pulses Results Results 24hrs Laboratory Tests Test 08/17/18 18:17 08/17/18 20:43 08/17/18 21:14 08/18/18 01:20 Bedside Glucose 126 166 112 Hemoglobin 10.8 L Hematocrit 32.8 L Test 08/18/18 05:15 08/18/18 07:53 08/18/18 08:03 08/18/18 11:44 Bedside Glucose 94 109 129 Hemoglobin 10.9 L Hematocrit 33.5 L Test 08/18/18 14:08 08/18/18 16:50 White Blood Count Pending Red Blood Count Pending Hemoglobin Pending Hematocrit Pending Mean Corpuscular Volume Pending Mean Corpuscular Pending Hemoglobin Mean Corpuscular Pending Hemoglobin Concent Red Cell Distribution Pending Width Platelet Count Pending Mean Platelet Volume Pending Sodium Level 138 Potassium Level 4.3 Chloride Level 108 Carbon Dioxide Level 25 Anion Gap 5 Blood Urea Nitrogen 7 Creatinine 0.56 Est Glomerular Filtrat > 60 Rate mL/min Glucose Level 132 Calcium Level 8.6 Bedside Glucose 126 Medications Medication Current Medications Miscellaneous Information 1 ea NOTE XX ; Start 08/14/18 at 10:00 Glucose (Glutose) 15 gm Q15M PRN PO DECREASED GLUCOSE; Start 08/14/18 at 10:00 Glucose (Glutose) 22.5 gm Q15M PRN PO DECREASED GLUCOSE; Start 08/14/18 at 10:00 Dextrose (D50w Syringe) 25 ml Q15M PRN IV DECREASED GLUCOSE; Start 08/14/18 at 10:00 Dextrose (D50w Syringe) 50 ml Q15M PRN IV DECREASED GLUCOSE; Start 08/14/18 at 10:00 Glucagon (Glucagen) 1 mg Q15M PRN IM DECREASED GLUCOSE; Start 08/14/18 at 10:00 Glucose (Glutose) 15 gm Q15M PRN BUCCAL DECREASED GLUCOSE; Start 08/14/18 at 10:00 Ondansetron HCl (Zofran Inj) 4 mg Q6H PRN IV NAUSEA AND/OR VOMITING; Start 08/14/18 at 14:00 Piperacillin Sod/ Tazobactam Sod 100 ml @ 200 mls/hr Q8 IVPB Last administered on 08/18/18 13:29; Admin Dose 200 MLS/HR; Start 08/14/18 at 22:00 Insulin Aspart (Novolog Insulin Pen) NOVOLOG *MODERATE* ALGORI... Q4 SC Last administered on 08/17/18 21:00; Admin Dose 2 UNIT; Start 08/14/18 at 21:00 Hydralazine HCl (Apresoline) 20 mg Q6H PRN IV bp>160/95; Start 08/14/18 at 21:00 Hydromorphone HCl (Dilaudid AIRCRAFT DESIGN ENGINEER) MG/HR CONTINUOUS RATE ... Q4PCA IV Last admin istered on 08/17/18at 15:36; Admin Dose 6 MG; Start 08/14/18 at 22:00 Insulin Glargine (Lantus) 30 units DAILY@2000 SC Last administered on 08/17/18 21:01; Admin Dose 30 UNITS; Start 08/14/18 at 23:00 Famotidine (Pepcid Iv) 20 mg BID IV Last administered on 08/18/18 08:41; Admin Dose 20 MG; Start 08/15/18 at 21:00 Phenol (Cepastat Lozenge) 1 lozenge Q4H PRN MT SORE THROAT Last administered on 08/17/18 15:38; Admin Dose 1 LOZENGE; Start 08/16/18 at 15:00 Albuterol/ Ipratropium (Duoneb) 3 ml Q4H RESP THERAPY PRN HHN SHORTNESS OF BREATH Last administered on 6/1/19at 16:45; Admin Dose 3 ML; Start 08/16/18 at 16:30 Lorazepam (Ativan) 1 mg Q6H PRN IV ANXIETY Last administered on 08/17/18at 06:54; Admin Dose 1 MG; Start 08/17/18 at 07:00 Ketorolac Tromethamine (Toradol) 30 mg Q6H IV Last administered on 08/18/18at 08:41; Admin Dose 30 MG; Start 08/17/18 at 15:30; Stop 08/20/18 at 15:29 Potassium Chloride/Dextrose/ Sod Cl 1,000 ml @ 100 mls/hr Q10H IV Last administered on 08/18/18at 08:51; Admin Dose 100 MLS/HR; Start 08/17/18 at 16:00 TONY ADLER Aug 18, 2018 16:56
[2018-08-18] MEDS: INSULIN GLARGINE [LANTus] (100 UNITS/ML) SYG SC SCH (20:25)
[2018-08-19] VITALS (9 sets, daily range): BP systolic 130–157; BP diastolic 61–75; PULSE 62–79; RESP 18–20
[2018-08-19] MEDS: INSULIN ASPART [NOVOLOG] 3 ML PEN SC SCH ×6 (01:00→20:30)
[2018-08-19] MEDS: KETOROLAC 30 MG INJ IV SCH ×4 (03:36→20:27)
[2018-08-19] MEDS: PIPER-TAZO 3.375 GM IV (PMX) 100 ML IVPB SCH ×3 (04:59→20:31)
[2018-08-19] MEDS: D5W-0.45 NACL + KCL 20 MEQ 1,000 ML IV SCH ×2 (08:37→17:40)
[2018-08-19] MEDS: FAMOTIDINE 20 MG INJ IV SCH ×2 (08:42→20:26)
--- NOTE | 2018-08-19 16:22 | PN ---
DATE: 08/19/2018 Postop day #5 status post laparotomy, left colon resection for cancer. SUBJECTIVE: Feels good. No complaint. No nausea, no vomiting, no abdominal pain, no bowel movement , but states has been passing a lot of gas. OBJECTIVE: GENERAL: Awake, alert, oriented. VITAL SIGNS: Temperature maximum 98, heart rate 68, regular sinus, respirations 20, blood pressure 1 51/72, saturation 100% on 3 liters nasal cannula. HEART: Regular. LUNGS: Clear. ABDOMEN: Soft. Still, there is some epigastric distention which is somewhat tympanic. There is no guarding, no rigidity, no rebound. Bowel sounds are 3+/4+. EXTREMITIES: Legs have no calf tenderness. LABORATORY DATA: Hemoglobin and hematocrit are stable at 11.2/34.6. WBC is gradually trending down toward normal which is 11,300 today with 69% segmented. DIAGNOSTIC DATA: Incentive spirometry brings up to 1200 mL. The patient is insisting that she wants to eat, so we are going to let her have only clear liquid tod ay considering that she has been passing gas and to discontinue Nichols as well. Dictated By: LEODAN TREJO MD PS/NTS Conf#: [id number] DID#: [id number] CC: MARJORIE BONNER MD; DIPIKA ADAMS MD;*EndCC*
--- NOTE | 2018-08-19 19:08 | PN ---
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 Assessment/Plan - Colon cancer, status post resection of a distal transverse colon and descending colon with mobilization of splenic flexure and omentectomy by Dr. Hamilton on 08/14/2018. Continue IV fluids and postoperative antibiotics. Continue RIG BUILDER HELPER Dilaudid as needed for pain and Zofran as needed for nausea. Advance diet per surgery. - Diabetes. Continue Lantus and NovoLog. - Hypertension. - Preserved ejection fraction at 60%. - Chronic obstructive pulmonary disease. Continue breathing treatment as needed. - Bipolar disorder. - Obesity with BMI of 38.2 Further recommendations based on clinical course. Plan of care discussed with Dr. Osborne. Result Diagram: 08/19/18 0937 08/19/18 0613 Results 24hrs Laboratory Tests Test 08/18/18 20:21 08/18/18 21:04 08/19/18 01:06 08/19/18 04:59 Bedside Glucose 118 123 122 Hemoglobin 10.9 L Hematocrit 33.2 L Test 08/19/18 06:13 08/19/18 08:38 08/19/18 09:37 08/19/18 12:50 White Blood Count 11.3 H Red Blood Count 3.43 L Hemoglobin 10.4 L 11.2 L Hematocrit 31.6 L 34.6 L Mean Corpuscular Volume 92.1 Mean Corpuscular 30.3 Hemoglobin Mean Corpuscular 32.9 Hemoglobin Concent Red Cell Distribution 13.9 Width Platelet Count 406 # Mean Platelet Volume 11.0 H Immature Granulocytes % 1.200 H Neutrophils % 69.8 Lymphocytes % 15.5 Monocytes % 8.0 Eosinophils % 4.8 Basophils % 0.7 Nucleated Red Blood 0.0 Cells % Immature Granulocytes # 0.130 H Neutrophils # 7.9 H Lymphocytes # 1.8 Monocytes # 0.9 Eosinophils # 0.5 Basophils # 0.1 Nucleated Red Blood 0.0 Cells # Sodium Level 141 Potassium Level 4.2 Chloride Level 108 Carbon Dioxide Level 27 Anion Gap 6 Blood Urea Nitrogen 7 Creatinine 0.61 Est Glomerular Filtrat > 60 Rate mL/min Glucose Level 100 Calcium Level 8.8 Bedside Glucose 95 95 Test 08/19/18 17:38 Bedside Glucose 130 Exam/Review of Systems Exam Vitals Vital Signs Date Temp Pulse Resp B/P (MAP) Pulse Ox O2 O2 Flow FiO2 Time Delivery Rate 08/19/18 69 16:34 08/19/18 98.0 20 157/75 99 Nasal 15:13 (102) Cannula 08/19/18 3.0 07:56 Intake and Output 08/18/18 08/18/18 08/19/18 1515:00 23:00 07:00 IntakeIntake Total 700 ml 300 ml 1300 ml OutputOutput Total 1100 ml 750 ml BalanceBalance 700 ml -800 ml 550 ml Exam Constitutional: alert, oriented Head: normocephalic Respiratory: clear to auscultation Cardiovascular: regular rate and rhythm Gastrointestinal: soft, other (Status post surgery) Musculoskeletal: nl extremities to inspection Extremities: normal pulses Results Results 24hrs Laboratory Tests Test 08/18/18 20:21 08/18/18 21:04 08/19/18 01:06 08/19/18 04:59 Bedside Glucose 118 123 122 Hemoglobin 10.9 L Hematocrit 33.2 L Test 08/19/18 06:13 08/19/18 08:38 08/19/18 09:37 08/19/18 12:50 White Blood Count 11.3 H Red Blood Count 3.43 L Hemoglobin 10.4 L 11.2 L Hematocrit 31.6 L 34.6 L Mean Corpuscular Volume 92.1 Mean Corpuscular 30.3 Hemoglobin Mean Corpuscular 32.9 Hemoglobin Concent Red Cell Distribution 13.9 Width Platelet Count 406 # Mean Platelet Volume 11.0 H Immature Granulocytes % 1.200 H Neutrophils % 69.8 Lymphocytes % 15.5 Monocytes % 8.0 Eosinophils % 4.8 Basophils % 0.7 Nucleated Red Blood 0.0 Cells % Immature Granulocytes # 0.130 H Neutrophils # 7.9 H Lymphocytes # 1.8 Monocytes # 0.9 Eosinophils # 0.5 Basophils # 0.1 Nucleated Red Blood 0.0 Cells # Sodium Level 141 Potassium Level 4.2 Chloride Level 108 Carbon Dioxide Level 27 Anion Gap 6 Blood Urea Nitrogen 7 Creatinine 0.61 Est Glomerular Filtrat > 60 Rate mL/min Glucose Level 100 Calcium Level 8.8 Bedside Glucose 95 95 Test 08/19/18 17:38 Bedside Glucose 130 Medications Medication Current Medications Miscellaneous Information 1 ea NOTE XX ; Start 08/14/18 at 10:00 Glucose (Glutose) 15 gm Q15M PRN PO DECREASED GLUCOSE; Start 08/14/18 at 10:00 Glucose (Glutose) 22.5 gm Q15M PRN PO DECREASED GLUCOSE; Start 08/14/18 at 10:00 Dextrose (D50w Syringe) 25 ml Q15M PRN IV DECREASED GLUCOSE; Start 08/14/18 at 10:00 Dextrose (D50w Syringe) 50 ml Q15M PRN IV DECREASED GLUCOSE; Start 08/14/18 at 10:00 Glucagon (Glucagen) 1 mg Q15M PRN IM DECREASED GLUCOSE; Start 08/14/18 at 10:00 Glucose (Glutose) 15 gm Q15M PRN BUCCAL DECREASED GLUCOSE; Start 08/14/18 at 10:00 Ondansetron HCl (Zofran Inj) 4 mg Q6H PRN IV NAUSEA AND/OR VOMITING; Start 08/14/18 at 14:00 Piperacillin Sod/ Tazobactam Sod 100 ml @ 200 mls/hr Q8 IVPB Last administered on 08/19/18at 14:03; Admin Dose 200 MLS/HR; Start 08/14/18 at 22:00 Insulin Aspart (Novolog Insulin Pen) NOVOLOG *MODERATE* ALGORI... Q4 SC Last administered on 08/17/18at 21:00; Admin Dose 2 UNIT; Start 08/14/18 at 21:00 Hydralazine HCl (Apresoline) 20 mg Q6H PRN IV bp>160/95; Start 08/14/18 at 21:00 Hydromorphone HCl (Dilaudid RIG BUILDER HELPER) MG/HR CONTINUOUS RATE ... Q4PCA IV Last administered on 08/17/18at 15:36; Admin Dose 6 MG; Start 08/14/18 at 22:00 Insulin Glargine (Lantus) 30 units DAILY@2000 SC Last administered on 08/18/18at 20:25; Admin Dose 30 UNITS; Start 08/14/18 at 23:00 Famotidine (Pepcid Iv) 20 mg BID IV Last administered on 08/19/18 08:42; Admin Dose 20 MG; Start 08/15/18 at 21:00 Phenol (Cepastat Lozenge) 1 lozenge Q4H PRN MT SORE THROAT Last administered on 08/17/18 15:38; Admin Dose 1 LOZENGE; Start 08/16/18 at 15:00 Albuterol/ Ipratropium (Duoneb) 3 ml Q4H RESP THERAPY PRN HHN SHORTNESS OF BREATH Last administered on 08/16/18 16:45; Admin Dose 3 ML; Start 08/16/18 at 16:30 Lorazepam (Ativan) 1 mg Q6H PRN IV ANXIETY Last administered on 08/17/18 06:54; Admin Dose 1 MG; Start 08/17/18 at 07:00 Ketorolac Tromethamine (Toradol) 30 mg Q6H IV Last administered on 08/19/18 15:44; Admin Dose 30 MG; Start 08/17/18 at 15:30; Stop 08/20/18 at 15:29 Potassium Chloride/Dextrose/ Sod Cl 1,000 ml @ 100 mls/hr Q10H IV Last admini stered on 08/19/18 17:40; Admin Dose 100 MLS/HR; Start 08/17/18 at 16:00 TONY ADLER Aug 19, 2018 19:08
[2018-08-19] MEDS: INSULIN GLARGINE [LANTus] (100 UNITS/ML) SYG SC SCH (20:31)
[2018-08-20] VITALS (10 sets, daily range): BP systolic 136–159; BP diastolic 65–89; PULSE 67–79; RESP 17–20
[2018-08-20] MEDS: INSULIN ASPART [NOVOLOG] 3 ML PEN SC SCH ×6 (00:46→21:43)
[2018-08-20] MEDS: KETOROLAC 30 MG INJ IV SCH ×2 (03:35→08:48)
[2018-08-20] MEDS: D5W-0.45 NACL + KCL 20 MEQ 1,000 ML IV SCH ×2 (03:46→14:00)
[2018-08-20] MEDS: PIPER-TAZO 3.375 GM IV (PMX) 100 ML IVPB SCH (05:37)
[2018-08-20] MEDS: FAMOTIDINE 20 MG INJ IV SCH ×2 (08:43→21:11)
--- NOTE | 2018-08-20 15:40 | PN ---
DATE: 08/20/2018 Postop day #6 status post laparotomy, left colon resection for the cancer. SUBJECTIVE: Feels very good and states that wants to eat solid food. No bowel movement yet, but has been passing a lot of gas. No nausea, no vomiting. VITAL SIGNS: Temperature maximum 98.9 today, heart rate 79, respirations 20, blood pressure 139/68, saturation 99% nasal cannula {the patient states that 24 hours a day at home she uses oxygen because of COPD that she has). PHYSICAL EXAMINATION: HEART: Regular. LUNGS: Clear. Decreased breathing sound is slightly lower sheth. ABDOMEN: Some protrusion in the epigastric area appears slightly tympanic, but abdomen quite soft. No guarding, no rigidity, no rebound tenderness. EXTREMITIES: Lower extremity negative tenderness, no edema. LABORATORY DATA: Hemoglobin 9.7, hematocrit 29.8. WBC was not done today. Chemistry: Sodium, pota ssium, BUN, creatinine within normal limits. ASSESSMENT: Postop day #6 status post distal transverse colon and proximal left colon resection for cancer of colon at the splenic flexure area. The patient is quite stable so far. PLAN: We will start the patient on soft diet tonight because she is insisting she does not want to e at liquid or full liquid diet and will observe. If by tomorrow she makes bowel movement, then most p robably can discharge her tomorrow afternoon or if no other problem, she can be discharged by Saturday. Dictated By: LEODAN PLAZA/NTS Conf#: [id number] DID#: [id number]
--- NOTE | 2018-08-20 19:18 | PN ---
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 Assessment/Plan - Colon cancer, status post resection of a distal transverse colon and descending colon with mobilization of splenic flexure and omentectomy by Dr. Hamilton on 08/14/2018. Continue IV fluids and postoperative antibiotics. Continue [place] as needed for pain and Zofran as needed for nausea. Advance diet per surgery. - Diabetes. Continue Lantus and NovoLog. - Hypertension. - Preserved ejection fraction at 60%. - Chronic obstructive pulmonary disease. Continue breathing treatment as needed. - Bipolar disorder. - Obesity with BMI of 38.2 Further recommendations based on clinical course. Plan of care discussed with Dr. Osborne. Result Diagram: 08/20/18 0839 08/19/18 0613 Results 24hrs Laboratory Tests Test 08/19/18 20:25 08/19/18 20:46 08/20/18 00:38 08/20/18 04:46 Bedside Glucose 178 181 136 Hemoglobin 11.5 L Hematocrit 36.2 L Test 08/20/18 08:39 08/20/18 08:42 08/20/18 12:59 08/20/18 17:16 Hemoglobin 9.7 L Hematocrit 29.8 L Bedside Glucose 102 225 H 119 Exam/Review of Systems Exam Vitals Vital Signs Date Temp Pulse Resp B/P (MAP) Pulse Ox O2 O2 Flow FiO2 Time Delivery Rate 08/20/18 3.0 17:02 08/20/18 74 16:47 08/20/18 99.0 20 156/72 100 Nasal 15:49 (100) Cannula Intake and Output 08/19/18 08/19/18 08/20/18 1515:00 23:00 07:00 IntakeIntake Total 400 ml 400 ml OutputOutput Total 200 ml BalanceBalance 200 ml 400 ml Exam Constitutional: alert, oriented Head: normocephalic Respiratory: clear to auscultation Cardiovascular: regular rate and rhythm Gastrointestinal: soft, other (Status post surgery) Musculoskeletal: nl extremities to inspection Extremities: normal pulses Results Results 24hrs Laboratory Tests Test 08/19/18 20:25 08/19/18 20:46 08/20/18 00:38 08/20/18 04:46 Bedside Glucose 178 181 136 Hemoglobin 11.5 L Hematocrit 36.2 L Test 08/20/18 08:39 08/20/18 08:42 08/20/18 12:59 08/20/18 17:16 Hemoglobin 9.7 L Hematocrit 29.8 L Bedside Glucose 102 225 H 119 Medications Medication Current Medications Miscellaneous Information 1 ea NOTE XX ; Start 08/14/18 at 10:00 Glucose (Glutose) 15 gm Q15M PRN PO DECREASED GLUCOSE; Start 08/14/18 at 10:00 Glucose (Glutose) 22.5 gm Q15M PRN PO DECREASED GLUCOSE; Start 08/14/18 at 10:00 Dextrose (D50w Syringe) 25 ml Q15M PRN IV DECREASED GLUCOSE; Start 08/14/18 at 10:00 Dextrose (D50w Syringe) 50 ml Q15M PRN IV DECREASED GLUCOSE; Start 08/14/18 at 10:00 Glucagon (Glucagen) 1 mg Q15M PRN IM DECREASED GLUCOSE; Start 08/14/18 at 10:00 Glucose (Glutose) 15 gm Q15M PRN BUCCAL DECREASED GLUCOSE; Start 08/14/18 at 10:00 Ondansetron HCl (Zofran Inj) 4 mg Q6H PRN IV NAUSEA AND/OR VOMITING; Start 08/14/18 at 14:00 Insulin Aspart (Novolog Insulin Pen) NOVOLOG *MODERATE* ALGORI... Q4 SC Last administered on 08/20/18at 13:03; Admin Dose 6 UNIT; Start 08/14/18 at 21:00 Hydralazine HCl (Apresoline) 20 mg Q6H PRN IV bp>160/95; Start 08/14/18 at 21:00 Hydromorphone HCl (Dilaudid LIBRARY ATTENDANT) MG/HR CONTINUOUS RATE ... Q4PCA IV Last administered on 08/17/18at 15:36; Admin Dose 6 MG; Start 08/14/18 at 22:00 Insulin Glargine (Lantus) 30 units DAILY@2000 SC Last administered on 08/19/18 20:31; Admin Dose 30 UNITS; Start 08/14/18 at 23:00 Famotidine (Pepcid Iv) 20 mg BID IV Last administered on 08/20/18 08:43; Admin Dose 20 MG; Start 08/15/18 at 21:00 Phenol (Cepastat Lozenge) 1 lozenge Q4H PRN MT SORE THROAT Last administered on 08/17/18 15:38; Admin Dose 1 LOZENGE; Start 08/16/18 at 15:00 Albuterol/ Ipratropium (Duoneb) 3 ml Q4H RESP THERAPY PRN HHN SHORTNESS OF BREATH Last administered on 08/16/18 16:45; Admin Dose 3 ML; Start 08/16/18 at 16:30 Lorazepam (Ativan) 1 mg Q6H PRN IV ANXIETY Last administered on 08/17/18 06:54; Admin Dose 1 MG; Start 08/17/18 at 07:00 TONY ADLER Aug 20, 2018 19:18
[2018-08-20] MEDS: INSULIN GLARGINE [LANTus] (100 UNITS/ML) SYG SC SCH (21:43)
[2018-08-20] MEDS: HYDROCODONE/APAP (5/325) TAB PO PRN (22:32)
[2018-08-20] MEDS: LORAZEPAM 2 MG INJ IV PRN (22:35)
[2018-08-21] VITALS (9 sets, daily range): BP systolic 137–149; BP diastolic 73–85; PULSE 70–75; RESP 16–18
[2018-08-21] MEDS: INSULIN ASPART [NOVOLOG] 3 ML PEN SC SCH ×4 (01:00→11:55)
[2018-08-21] MEDS: FAMOTIDINE 20 MG INJ IV SCH (09:00)
[2018-08-21] MEDS ORDERED: PATIENT'S OWN MEDICATION IM SCH ×2 (10:00)
[2018-08-21] MEDS: HYDROCODONE/APAP (5/325) TAB PO PRN (10:07)
[2018-08-21] MEDS ORDERED: BISACODYL 10 MG SUPP PR ONE (11:30)
--- NOTE | 2018-08-21 15:17 | PN ---
DATE: 08/21/2018 Status post laparotomy, resection of the left colon cancer. SUBJECTIVE: No complaint, feels really good, has been passing a lot of gas. Actually stated that keaton robertson had a bowel movement today afternoon. Right now, it is 3:00 p.m. She has been started on soft t, but she has not been eating anything here. She says she does not like the food here. She wants t o have her own food at home and she is insisting that she wants to go home. OBJECTIVE: GENERAL: Awake, alert, oriented, in no acute distress. VITAL SIGNS: Temperature 98.4, heart rate 73, respirations 18, blood pressure 140/77, saturation 98% on 3 liters nasal cannula. HEART: Regular. LUNGS: Clear. ABDOMEN: Soft. Wound is clean. EXTREMITIES: Lower extremity: No pitting edema, no calf tenderness. LABORATORY DATA: WBC 11,200 with 60% segmented, hemoglobin 9.8, hematocrit 30.3. Chemistry: Sodium , potassium, BUN, creatinine within normal limit. POC glucose is 117. ASSESSMENT AND PLAN: The patient is status post laparotomy and resection of the distal transverse co eloisa and proximal ascending colon for cancer of the colon and partial omentectomy. The patient has santoro d the normal uncomplicated postoperative course and today, she had a bowel movement. She insists merrick t she wants to go home even though she has not had a good meal here, but we are going to discharge he r. Instructions were to please have soft diet and small portions and do not lift any heavy objects m ore than 5 or 6 pounds for 6 months to prevent hernia formation. The patient is taking a lot of medi cation at home and she knows the medication very well. She is supposed to take all the medications t hat she used to take at home before. She has an appointment to see Dr. Hamilton in office of 09/01/2018 . Dictated By: LEODAN TREJO MD PS/NTS Conf#: [id number] DID#: [id number] CC: MARJORIE HAMILTON MD; DIPIKA ADAMS MD;*EndCC*
[2018-08-21] MEDS ORDERED: ARIPIPRAZOLE LAUROXIL IM SCH (15:30)
== END 2018-08-21 16:30 | disposition home or self-care (01) | DRG 346 ==
LOC: REC 08:05 → TEL 15:40
PROVIDERS: ADMIT Surgery Surgical Oncology; ATTEND Surgery Surgical Oncology
PROC: 0DTU0ZZ Resection of Omentum, Open Approach (ICD-10-PCS; 2018-08-14)
PROC: 30233N1 Transfusion of Nonautologous Red Blood Cells into Peripheral Vein, Percutaneous Approach (ICD-10-PCS; 2018-08-14)
PROC: 0DBL0ZX Excision of Transverse Colon, Open Approach, Diagnostic (ICD-10-PCS; principal; 2018-08-14 10:30)
DX: C18.6 Malignant neoplasm of descending colon (principal); E11.8 Type 2 diabetes mellitus with unspecified complications; E11.40 Type 2 diabetes mellitus with diabetic neuropathy, unspecified; J44.9 Chronic obstructive pulmonary disease, unspecified; I10 Essential (primary) hypertension; E66.9 Obesity, unspecified; Z68.38 Body mass index [BMI] 38.0-38.9, adult; M19.90 Unspecified osteoarthritis, unspecified site; F41.9 Anxiety disorder, unspecified; F31.9 Bipolar disorder, unspecified; Z72.0 Tobacco use
CPT/HCPCS: 36430; 74018; 80048; 82962; 83735; 84100; 85014; 85018; 85025; 85610; 85730; 86850; 86900; 86901; 86920; 87086; 88309; 94664; 97116; 97162; 97530; C9113; J0295; J0360; J1100; J1170; J1815; J1885; J2060; J2405; J2543; J3010; J3480; P9016

== ENCOUNTER → 2018-11-20 | Outpatient (CLI) | payer OTHER ==
[~2018-11-20] MED LIST changes: -AMPICILLIN/SULB 3 GM/NS (PMX) 100 ML IVPB SCH; -SOD CHLORIDE 0.9% 1,000 ML IV ONE
[2018-11-20 13:30] VITALS: BP 150/69; PULSE 80; RESP 18
== END | disposition home or self-care (01) ==
LOC: RAD 11:51
PROVIDERS: ATTEND Internal Medicine Hematology & Oncology
DX: C18.9 Malignant neoplasm of colon, unspecified (principal)
CPT/HCPCS: 36573